=== PATIENT | male | born 1965 | race Caucasian/White ===

== ENCOUNTER 2020-04-22 13:34 | Outpatient (REF) | payer MEDICARE, MEDICAID, SELFPAY | END 2020-04-22 13:35 | disposition home or self-care (01) | LOC: HO.LAB 13:34 | PROVIDERS: Visit Provider Internal Medicine | DX: Z20.828 Contact with and (suspected) exposure to other viral communicable diseases (principal) | CPT/HCPCS: U0003 ==

== ENCOUNTER 2020-05-27 12:30 | Outpatient (REF) | payer MEDICARE, MEDICAID, SELFPAY ==
--- NOTE | 2020-05-27 16:36 | MHC.AU.P13 ---
Adult Audiological Evaluation Date of Visit: 05/27/20 Reason for Appointment: Annual audiological re-evaluation required for his residential living program. He denies any changes to his hearing or medical history since his last visit. Does patient feel they have a hearing loss?: No Has hearing been tested previously?: Yes Previous Hearing Test Results: [facility] [place], 02/05/2019- Normal hearing 250-3000 Hz, sloping to a mild to moderate sensorineural hearing loss from 5390-5815 Hz bilaterally. Ear History: History of Ear Wax Buildup: Both Ears Medical History: Medical History: Developmental Disorder/Delay, Heart Problems Medical History (Other): Stent placed in heart Otoscopy: Right Ear: Non-occluding cerumen Left Ear: Non-occluding cerumen Tympanometry: Right Ear: Normal Middle Ear System (Type A) Left Ear: Normal Middle Ear System (Type A) Hearing Evaluation: Transducer(s) Used: Insert Earphones, Bone Conduction Method: Conventional Audiometry Stimuli Used: Pure Tones Right Ear: Description of Hearing: Normal hearing from 250-3000 Hz, sloping to a mild sensorineural hearing loss from 9376-8580 Hz. Left Ear: Description of Hearing: Normal hearing from 250-3000 Hz, sloping to a mild to moderate sensorineural hearing loss from 3445-6609 Hz. Speech Recognition Threshold (SRT): Method Used: Monitored Live Voice Stimuli Used: Spondee Words Right Ear: 15 dBHL Left Ear: 15 dBHL Word Discrimination: Method: Recorded Lists Word Lists Used: NU-6 Right Ear: 100% at 55 dBHL Left Ear: 96% at 55 dBHL Comparison: Compared to the most recent evaluation: Hearing is stable. Recommendations: Recommendations: Audiological re-evaluation in one year. Amplification is not warranted at this time. Diagnosis: Primary Diagnosis: H90.3 Bilateral Sensorineural Hearing Loss Services Performed: Services Performed: Comprehensive Audiological Evaluation (CPT 55723) Tympanometry (CPT 16413) Signature: Provider: Erika Foster, CCC-A
== END 2020-05-27 12:31 | disposition home or self-care (01) ==
LOC: HO.SH 12:30
PROVIDERS: PCP Internal Medicine; Referring Provider Internal Medicine; Visit Provider Internal Medicine
DX: H90.3 Sensorineural hearing loss, bilateral (principal)
CPT/HCPCS: 92557; 92567

== ENCOUNTER → 2020-05-31 10:07 | Outpatient (BNVA) | payer MEDICARE, MEDICAID, SELFPAY | PROVIDERS: PCP Internal Medicine; Referring Provider Internal Medicine; Visit Provider Internal Medicine Cardiovascular Disease | DX: I25.10 Atherosclerotic heart disease of native coronary artery without angina pectoris (principal) | CPT/HCPCS: 93005; 99212 ==

== ENCOUNTER 2020-06-02 10:21 | Outpatient (REF) | payer MEDICARE, MEDICAID, SELFPAY ==
[2020-06-02 11:20] LABS: Cholesterol 113 mg/dL; HDL Cholesterol 29 mg/dL; LDL Cholesterol Calculated 63 mg/dl; Triglycerides 109 mg/dL
== END 2020-06-02 10:22 | disposition home or self-care (01) ==
LOC: HO.LAB 10:21
PROVIDERS: PCP Internal Medicine; Visit Provider Internal Medicine Cardiovascular Disease
DX: I25.10 Atherosclerotic heart disease of native coronary artery without angina pectoris (principal)
CPT/HCPCS: 80061

== ENCOUNTER → 2021-05-23 09:49 | Outpatient (BNVA) | payer MEDICARE, MEDICAID, SELFPAY | PROVIDERS: PCP Internal Medicine; Referring Provider Internal Medicine; Visit Provider Internal Medicine Cardiovascular Disease | DX: R07.89 Other chest pain (principal); I25.10 Atherosclerotic heart disease of native coronary artery without angina pectoris; R00.1 Bradycardia, unspecified; I44.0 Atrioventricular block, first degree; E78.5 Hyperlipidemia, unspecified; E66.9 Obesity, unspecified; Z68.33 Body mass index [BMI] 33.0-33.9, adult; Z98.890 Other specified postprocedural states; Z95.5 Presence of coronary angioplasty implant and graft; Z82.49 Family history of ischemic heart disease and other diseases of the circulatory system; Z79.82 Long term (current) use of aspirin; Z79.899 Other long term (current) drug therapy | CPT/HCPCS: 93005; 99212 ==

== ENCOUNTER → 2021-05-25 08:13 | Outpatient (REF) | payer MEDICARE, MEDICAID, SELFPAY ==
--- NOTE | ~2021-05-25 | NM_ITS ---
Lexiscan Myocardial perfusion study Indication: Chest pain, assess for coronary disease and ischemia Technique: The patient was brought in for a Lexiscan perfusion study on 05/25/2021 and was injected 0.4 mg of Lexiscan intravenously. Within a minute of this injection 35 mCi of sestamibi was given intravenously. Images were obtained using the SPECT gamma camera interlaced with the gating device. Images were obtained in supine position. Resting perfusion study was performed on 05/26/2021. Patient was administered 35 mCi of sestamibi intravenously at rest. Images were then obtained in supine position. Total DLP 127mGy-cm. Images were processed with the software and compared side to side in short axis, horizontal long axis and vertical long axis views. Findings: Raw acquisition was reviewed. The stress perfusion study showed mildly diminished tracer uptake along the inferior wall, inferolateral wall. With CT attenuation correction, there is some improvement suggestive of diaphragmatic attenuation artifact but it does not normalize completely. The gated study shows normal LV systolic function with calculated LVEF of 63%. LV cavity is normal in size. The gated study shows normal wall thickening and contraction of segments. Resting study shows mildly diminished tracer uptake in the basal inferolateral wall. With CT attenuation correction, there is improvement which may indicate diaphragmatic attenuation artifact. Gating at rest reveals normal wall motion with ejection fraction at 56%. The findings are consistent with mild reversible inferior defect; fixed basal inferolateral defect. NM/NM cardiolite stress test Impression: 1. Myocardial perfusion imaging study shows mild reversible defect in the inferior wall with partial improvement during attenuation correction, suggestive of mild ischemia in the right coronary artery territory. Mild fixed basal inferolateral defect improving with diaphragmatic attenuation correction which could be artifactual, but cannot exclude a small nontransmural infarct in circumflex territory. 2. Gated LVEF is 63% during stress and 56% during rest. 3. Transient ischemic dilatation not present. EKG component of the test reported separately.
--- NOTE | 2021-05-25 08:29 | CA_ITS ---
Acquisition Time: 2021-05-25 10:24:58 Total Exercise Time: 00:02:00 Test Indications: I25.10 - Atherosclerotic heart Medications: Protocol: LEXISCAN Max HR: 096 BPM 58% of Pred: 163 BPM Max BP: 108/064 mmHG Max Work Load: 1.0 METS Exercise stress test with exercise 1 min 16 sec of Tristen protocol, with moderate shortness of breath and request to stop exercise, no chest discomfort, without arrythmia, with normotensive response to exercise, with nondiagnostic EKG for ischemia. Tracings reviewed with Dr Palacio and will change test to pharmacological nuclear stress test. SBP 82 prior to start of test and he was given 250cc normal saline and 6 oz PO water with normalization of BP. Pharm test with Lexiscan injection, while sitting and kicking his legs, with report of fatigue, without anginal symptoms, without arrythmia, with normotensive response to injection, with nondiagnostic EKG for ischemia. Nuclear images pending. Test reviewed with Dr Palacio Referred By: Morales Palacio Overread By: SHIV DUNLAP
[2021-05-25 09:14] LABS: Cholesterol 128 mg/dL; HDL Cholesterol 33 mg/dL; LDL Cholesterol Calculated 73 mg/dl; Triglycerides 110 mg/dL
== END ==
LOC: HO.CARD 08:13
PROVIDERS: PCP Internal Medicine; Visit Provider Internal Medicine Cardiovascular Disease
DX: R07.89 Other chest pain (principal); I25.10 Atherosclerotic heart disease of native coronary artery without angina pectoris
CPT/HCPCS: 36415; 78452; 80061; 93017; A9500; J0280; J2785

== ENCOUNTER 2021-05-29 10:56 | Outpatient (REF) | payer MEDICARE, MEDICAID, SELFPAY ==
--- NOTE | 2021-05-30 10:34 | MHC.AU.ANO ---
Adult Audiological Evaluation Date of Visit: 05/29/21 Senior Data Quality Analyst Used: Not Applicable Reason for Appointment: Audiologic re-evaluation as required by [facility]. Ez[facility]iel reports he does not feel his hearing has changed and his accompanying staff member, Mike, reports Ezequiel appears to be hearing well. Has hearing been tested previously?: Yes Previous Hearing Test Results: 05/27/2020 [facility] Normal hearing levels 250-3000 Hz, sloping to a mild/moderate high frequency sensorineural hearing loss, both ears. Ear History: Unremarkable Medical History: Medical History: Developmental Disorder/Delay, Heart Problems, Seizure Disorder, Stent placed in heart, high cholesterol, mood disorder Medication List: Rispridone, Thioridasine, Prozac, Benztropine, Atorvastatin, Mutivitamin, Aspirin, Prilosec, Lamictal, Keppra, Toprol XL Otoscopy: Right Ear: Partially occluded with cerumen Left Ear: Partially occluded with cerumen Tympanometry: Tympanometry performed due to: To determine if cerumen blockage is fully occluding canal(s) Right Ear: Normal Middle Ear System (Type A) Left Ear: Normal Middle Ear System (Type A) Otoacoustic Emissions: Not performed at today's visit. Hearing Evaluation: Transducer(s) Used: Insert Earphones Bone Conduction Method: Conventional Audiometry Stimuli Used: Pure Tones Right Ear: Description of Hearing: Normal hearing thresholds 250-3000 Hz, sloping to a mild/moderate sensorineural hearing loss 6682-1990 Hz. Left Ear: Description of Hearing: Normal hearing thresholds 250-3000 Hz, sloping to a mild/moderate sensorineural hearing loss 8864-3298 Hz. Speech Recognition Threshold (SRT): Method Used: Monitored Live Voice Stimuli Used: Spondee Words Right Ear: 15 dB HL Left Ear: 15 dB HL Word Discrimination: Method: Recorded Lists Word Lists Used: NU-6 Right Ear: 92% at 55 dB HL Left Ear: 92% at 55 dB HL Comparison: Compared to the most recent evaluation: Hearing is stable. Recommendations: Audiological re-evaluation in one year. Will send a reminder card. Amplification is not warranted at this time. Diagnosis: Primary Diagnosis: H90.3 Bilateral Sensorineural Hearing Loss Services Performed: Comprehensive Audiological Evaluation (CPT 85596) Tympanometry (CPT 10950) Signature: Provider: Erika Wilhelm, [facility]
== END 2021-05-29 10:57 | disposition home or self-care (01) ==
LOC: HO.SH 10:56
PROVIDERS: Visit Provider Internal Medicine
DX: H90.3 Sensorineural hearing loss, bilateral (principal)
CPT/HCPCS: 92557; 92567

== ENCOUNTER → 2021-06-20 13:24 | Outpatient (BNVA) | payer MEDICARE, MEDICAID, SELFPAY | PROVIDERS: PCP Internal Medicine; Referring Provider Internal Medicine; Visit Provider Nurse Practitioner Family | DX: R07.89 Other chest pain (principal); R94.39 Abnormal result of other cardiovascular function study; I25.10 Atherosclerotic heart disease of native coronary artery without angina pectoris; E78.5 Hyperlipidemia, unspecified; E66.9 Obesity, unspecified; Z95.5 Presence of coronary angioplasty implant and graft; Z68.34 Body mass index [BMI] 34.0-34.9, adult | CPT/HCPCS: 99212 ==

== ENCOUNTER 2021-09-19 10:06 | Emergency (ER) | payer MEDICARE, MEDICAID, SELFPAY ==
--- NOTE | 2021-09-19 | ECG_ITS ---
Test Reason : BRADYCARDIA Blood Pressure : / mmHG Vent. Rate : 040 BPM Atrial Rate : 000 BPM P-R Int : 000 ms QRS Dur : 096 ms QT Int : 470 ms P-R-T Axes : 000 007 038 degrees QTc Int : 383 ms Atrial fibrillation with slow ventricular response Possible Inferior infarct , age undetermined Abnormal ECG When compared with ECG of 08-JAN-2014 07:12, Vent. rate has decreased BY 23 BPM Referred By: Latasha Villanueva Electronically Signed By:MARU STANFORD
--- NOTE | ~2021-09-19 | XR_ITS ---
EXAMINATION: XR CHEST CLINICAL INFORMATION: SOB COMPARISON: None TECHNIQUE: Frontal view of the chest was obtained. FINDINGS: The lungs are hypoexpanded but clear of acute process. The heart size is borderline enlarged with normal pulmonary vascularity. No gross bony abnormality seen. XR/XR chest 1V IMPRESSION: Borderline enlarged heart. Lungs are clear.
[2021-09-19 10:56] VITALS: BP 80/49; PULSE 38; RESP 12; TEMP 36.8; O2SAT 90; BMI 32.8
[2021-09-19 11:07] LABS: Glucose, Whole Blood 94 mg/dL (60-115)
[2021-09-19] MEDS: 0.9 % Sodium Chloride 1,000 ML 999 ML IVCONT (11:13)
[2021-09-19 11:18] LABS: MANUAL DIFF FLAG NO
[2021-09-19 11:20] LABS: Basophils Percent Auto 0.4 % (0-2); Eosinophils Absolute Auto 0.1 X10*3/uL (0.0-0.4); Eosinophils Percent Auto 2.1 % (0-4); Hematocrit 46.1 % (42.0-52.0); Hemoglobin 15.4 g/dl (14.0-18.0); Lymphocytes Percent Auto 41.3 % (20-40); Mean Corpuscular HGB Conc 33.4 g/dl (31.0-36.0); Mean Corpuscular Hemoglobin 29.2 pg (27.0-33.0); Mean Corpuscular Volume 87.3 fL (80.0-98.0); Mean Platelet Volume 10.1 fL (9.4-12.4); Monocytes Absolute Auto 0.6 X10*3/uL (0.1-1.2); Monocytes Percent Auto 12.6 % (2-11); Neutrophils Absolute Auto 2.1 x10*3/uL (2.0-8.3); Neutrophils Percent Auto 43.6 % (45-73); Platelet Count 169 X10*3/uL (160-400); Red Blood Count 5.28 X10*6/uL (4.60-5.80); Red Cell Distribution Width 13.5 % (11.0-16.0); White Blood Count 4.8 X10*3/uL (4.8-10.8)
[2021-09-19] MEDS: ondansetron HCL 4 MG/2 ML VIAL IVPUSH (11:21)
--- NOTE | 2021-09-19 11:26 | ED.GENADULT ---
HPI - General Adult General Chief complaint: Weakness Stated complaint: BP low/weakness Time Seen by Provider: 09/19/21 11:04 Source: patient and other ([facility] staff) Mode of arrival: ambulatory Limitations: other History of Present Illness HPI narrative: Patient is coming from a senior living accompanied by staff. Patient is usually very talkative, they noted that this morning patient is more quiet than usual, somnolent, and at times seems to be hard to wake up. When patient arrived to the emergency room, patient's heart rate was 38, blood pressure 80/40, oxygen saturation 90% on room air. Shortly after when we transferred the patient from the wheelchair to the bed and do, heart rate improved to the mid 50s, blood pressure 100 systolic. Patient awake to patient states he has no chest pain, only mild shortness of breath and nausea. Patient is given his medications by the senior living staff. Once his medications is metoprolol. Related Data Home Medications Medication Instructions Recorded Confirmed aspirin 81 mg tablet,delayed 81 mg PO DAILY 05/31/20 06/20/21 release atorvastatin 80 mg tablet 80 mg PO BEDTIME 05/31/20 06/20/21 benztropine 0.5 mg tablet 0.5 mg PO BID 05/31/20 06/20/21 ciclopirox 0.77 % topical cream appl TOPICAL 05/31/20 06/20/21 fluoxetine 10 mg capsule 10 mg PO QAM 05/31/20 06/20/21 multivitamin 1 tab PO QAM 05/31/20 06/20/21 omeprazole 20 mg capsule,delayed 20 mg PO DAILY 05/31/20 06/20/21 release lamotrigine 100 mg tablet 200 mg PO BID tab 05/23/21 06/20/21 levetiracetam 500 mg tablet 1,000 mg PO ONCE tab 05/23/21 06/20/21 risperidone 2 mg tablet 2 mg PO BID tab 05/23/21 06/20/21 thioridazine 50 mg tablet 50 mg PO ONCE tab 05/23/21 06/20/21 Previous Rx's Medication Instructions Recorded metoprolol succinate 25 mg 25 mg PO DAILY #90 tab 10/06/20 tablet,extended release 24 hr isosorbide mononitrate 30 mg 30 mg PO QAM #90 tab 05/29/21 tablet,extended release 24 hr metoprolol succinate 25 mg capsule 12.5 mg PO DAILY #14 ea 09/19/21 sprinkle, ext. release 24 hr Allergies Allergy/AdvReac Type Severity Reaction Status Date / Time No Known Allergies Allergy Verified 06/20/21 13:35 [No Known Allergies*] Review of Systems Review of Systems: Constitutional : No Weight loss, No Fever, No Chills, No Night Sweats, No Fatigue, No Malaise ENT/Mouth : No Hearing loss, No Ear Pain, No Nasal Congestion, No Sinus Pain, No Hoarseness, No sore throat, No Rhinorrhea, No Swallowing Difficulty Eyes: No Eye Pain, No Swelling, No Redness, No Foreign Body, No Discharge, No Vision Changes Cardiovascular : No Chest Pain, no orthopnea, no palpitations Respiratory : No Cough, No Sputum, No Wheezing, No Smoke Exposure complaining of mild shortness of breath Gastrointestinal : Complaining of of Nausea, No Vomiting, No Diarrhea, No Constipation, No abdominal Pain, No Hematochezia, No Melena Genitourinary : no irregular bleeding, No Dysuria, No Urinary Frequency, No Hematuria, No Urinary Incontinence, No Urgency, No Flank Pain, No Urinary Flow Changes, No Hesitancy Musculoskeletal : No joint pain, No Myalgias, No Joint Swelling Skin : No Skin Lesions, No rash Neuro : No Weakness, No Numbness, No Paresthesias, No Loss of Consciousness, No Dizziness, No Headache Psych : No Anxiety/Panic, No Depression, No SI/HI/AH/VH, No Social Issues, Heme/Lymph: No Bruising, No Bleeding,No Lymphadenopathy Endocrine : No Polyuria, No Polydipsia, No Temperature Intolerance [facility] Past Medical History Medical History CAD (coronary artery disease) Hyperlipidemia Obesity Surgical History Hx of cardiac cath Stented coronary artery Family History Family History Father CVD (cardiovascular disease) Mother CVD (cardiovascular disease) Social History Social History Patient Tobacco Use Status: Never used Tobacco Use of substances other than those prescribed or required for medical reasons: No Advance Directives: No Advance Directives Information Provided: Yes Physical Exam ED Vital Signs: Vital Signs - 24 hr 09/19/21 10:56 09/19/21 11:42 09/19/21 12:36 Temperature 98.3 F Pulse Rate 38 L 55 61 Respiratory Rate 12 14 14 Blood Pressure 80/49 L 109/65 101/54 L Pulse Oximetry 90 L 95 96 09/19/21 14:31 Temperature Pulse Rate 70 Respiratory Rate 15 Blood Pressure 115/70 Pulse Oximetry 96 BMI result Body Mass Index 32.8 Const Other: Appearance: Alert. Oriented X3. No acute distress. Patient is now more awake than when he initially came in Eyes: Pupils equal, round and reactive to light. ENT: Pharynx normal. Neck: Normal inspection. Neck supple. No lymph nodes noted. No crepitus CVS: Bradycardic, heart rate between 30 and 50, normal. Normal S1 and S2 Respiratory: No respiratory distress. Breath sounds normal. No Wheezing. No rales Abdomen: Soft and nontender. No rigidity. No distention. Skin: Skin warm and dry. Normal skin color. Normal skin turgor. Extremities: No lower extremity edema. No Lacerations. No Rash Neuro: Oriented X 3. No motor deficit. No sensory deficit. Moving all extremities. No slurred speech. CN 2 through 12 grossly intact Psych: calm, cooperative, normal affect Course Course Course Narrative: When patient 1st arrived in triage, blood pressure and heart rate were low, I consider given atropine, but when we check vitals on the patient was in the room, patient's blood pressure had actually improved and patient was feeling better. Atropine was not given. We were given a list of patient's medications, patient was given 1 dose or 1 mg glucagon in case patient accidentally overdosed with his Toprol. Also pt received 1L IV fluids. Patient is stable, blood pressure between 100 and 110 systolic, heart rate 40-60, no chest pain. EKG seems to show atrial flutter versus atrial fibrillation. According to the senior living staff, patient has no history of either. I discussed the EKG with Dr. Dey, agrees that this may be AFib versus a flutter with slow rate, no heart block. Patient was given glucagon, 2 hours later, patient's heart rate ranged between 60 and 75, blood pressure 115/70, patient asymptomatic. I discussed the patient with Dr. Dey, patient's Toprol will be decreased to 12.5. At this time, anticoagulation is not recommended. Cardiology will follow up with the patient. Patient's urine toxicology was positive for fentanyl. Patient is taking several psychiatric medications that may cause a false positive urine toxicology test. Plan was discussed with senior living staff Medical Decision Making Lab Data Result diagrams: 09/19/21 11:12 09/19/21 11:12 Labs: Lab Results 09/19/21 09/19/21 09/19/21 Range/Units 10:52 11:12 11:12 WBC 4.8 (4.8-10.8) X10*3/uL RBC 5.28 (4.60-5.80) X10*6/uL Hgb 15.4 (14.0-18.0) g/dl Hct 46.1 (42.0-52.0) % MCV 87.3 (80.0-98.0) fL MCH 29.2 (27.0-33.0) pg MCHC 33.4 (31.0-36.0) g/dl RDW 13.5 (11.0-16.0) % Plt Count 169 (160-400) X10*3/uL MPV 10.1 (9.4-12.4) fL Immature Gran % (Auto) 0.0 (0.0-0.4) % Neut % (Auto) 43.6 L (45-73) % Lymph % (Auto) 41.3 H (20-40) % Sheridan % (Auto) 12.6 H (2-11) % Eos % (Auto) 2.1 (0-4) % Baso % (Auto) 0.4 (0-2) % Lymph # (Auto) 2.0 (1.2-4.9) X10*3/uL [place] # (Auto) 0.6 (0.1-1.2) X10*3/uL Eos # (Auto) 0.1 (0.0-0.4) X10*3/uL Baso # (Auto) 0.0 (0.0-0.2) X10*3/uL Abs Immat Gran (auto) 0.00 (0.00-0.03) X10*3/uL Absolute Neuts (auto) 2.1 (2.0-8.3) x10*3/uL Absolute Nucleated RBC 0.000 (0.0-0.012) X10*3/uL Nucleated RBC % (auto) 0.0 (0.0-0.2) /100WBC PT (9.9-13.0) SEC INR (0.9-1.1) Sodium 132 L (135-145) mmol/L Potassium 4.0 (3.3-5.1) mmol/L Chloride 95 L (96-108) mmol/L Carbon Dioxide 29 (22-29) mmol/L Anion Gap 12 (12-20) BUN 12 (9-16) mg/dL Creatinine 0.99 (0.5-1.4) mg/dL Estim Creat Clear Calc 96.4 Estimated GFR > 60 POC Glucose 94 (60-115) mg/dL Random Glucose 103 (60-115) mg/dL Lactic Acid (0.5-2.0) mmol/L Calcium 9.4 (8.4-10.2) mg/dL Magnesium 2.3 (1.6-2.6) mg/dL Total Bilirubin 1.2 H (0.0-1.0) mg/dL Direct Bilirubin 0.5 (0.0-0.5) mg/dL AST 30 (5-37) U/L ALT 45 H (0-40) U/L Alkaline Phosphatase 56 (39-117) U/L Troponin I High Sens (<3.5-35.0) ng/L B-Natriuretic Peptide (<100) pg/mL Total Protein 6.4 L (6.5-8.0) g/dL Albumin 4.1 (3.5-5.0) g/dL TSH 2.87 (0.32-4.0) uIU/mL Urine Color Urine Appearance Urine pH (5.0-8.0) Ur Specific Maynard (1.005-1.025) Urine Protein (NEG-TRACE) MG/DL Urine Glucose (UA) (NEG) MG/DL Urine Ketones (NEG) MG/DL Urine Blood (NEG) Urine Nitrite (NEG) Ur Leukocyte Esterase (NEG) Urine Opiates Screen (Not Detect) Urine Fentanyl Screen (Not Detect) Ur Barbiturates Screen (Not Detect) Ur Phencyclidine Scrn (Not Detect) Ur Amphetamines Screen (Not Detect) U Benzodiazepines Scrn (Not Detect) Urine Cocaine Screen (Not Detect) U Marijuana (THC) Screen (Not Detect) COVID-19 (PATRICIO) (Negative) COVID-19 Clin Com 09/19/21 09/19/21 09/19/21 Range/Units 11:12 11:27 11:27 WBC (4.8-10.8) X10*3/uL RBC (4.60-5.80) X10*6/uL Hgb (14.0-18.0) g/dl Hct (42.0-52.0) % MCV (80.0-98.0) fL MCH (27.0-33.0) pg MCHC (31.0-36.0) g/dl RDW (11.0-16.0) % Plt Count (160-400) X10*3/uL MPV (9.4-12.4) fL Immature Gran % (Auto) (0.0-0.4) % Neut % (Auto) (45-73) % Lymph % (Auto) (20-40) % [place] % (Auto) (2-11) % Eos % (Auto) (0-4) % Baso % (Auto) (0-2) % Lymph # (Auto) (1.2-4.9) X10*3/uL [place] # (Auto) (0.1-1.2) X10*3/uL Eos # (Auto) (0.0-0.4) X10*3/uL Baso # (Auto) (0.0-0.2) X10*3/uL Abs Immat Gran (auto) (0.00-0.03) X10*3/uL Absolute Neuts (auto) (2.0-8.3) x10*3/uL Absolute Nucleated RBC (0.0-0.012) X10*3/uL Nucleated RBC % (auto) (0.0-0.2) /100WBC PT 13.9 H (9.9-13.0) SEC INR 1.2 H (0.9-1.1) Sodium (135-145) mmol/L Potassium (3.3-5.1) mmol/L Chloride (96-108) mmol/L Carbon Dioxide (22-29) mmol/L Anion Gap (12-20) BUN (9-16) mg/dL Creatinine (0.5-1.4) mg/dL Estim Creat Clear Calc Estimated GFR POC Glucose (60-115) mg/dL Random Glucose (60-115) mg/dL Lactic Acid 1.0 (0.5-2.0) mmol/L Calcium (8.4-10.2) mg/dL Magnesium (1.6-2.6) mg/dL Total Bilirubin (0.0-1.0) mg/dL Direct Bilirubin (0.0-0.5) mg/dL AST (5-37) U/L ALT (0-40) U/L Alkaline Phosphatase (39-117) U/L Troponin I High Sens < 3.5 (<3.5-35.0) ng/L B-Natriuretic Peptide 103 H (<100) pg/mL Total Protein (6.5-8.0) g/dL Albumin (3.5-5.0) g/dL TSH (0.32-4.0) uIU/mL Urine Color Urine Appearance Urine pH (5.0-8.0) Ur Specific Maynard (1.005-1.025) Urine Protein (NEG-TRACE) MG/DL Urine Glucose (UA) (NEG) MG/DL Urine Ketones (NEG) MG/DL Urine Blood (NEG) Urine Nitrite (NEG) Ur Leukocyte Esterase (NEG) Urine Opiates Screen (Not Detect) Urine Fentanyl Screen (Not Detect) Ur Barbiturates Screen (Not Detect) Ur Phencyclidine Scrn (Not Detect) Ur Amphetamines Screen (Not Detect) U Benzodiazepines Scrn (Not Detect) Urine Cocaine Screen (Not Detect) U Marijuana (THC) Screen (Not Detect) COVID-19 (PATRICIO) (Negative) COVID-19 Clin Com 09/19/21 09/19/21 09/19/21 Range/Units 11:27 14:06 14:06 WBC (4.8-10.8) X10*3/uL RBC (4.60-5.80) X10*6/uL Hgb (14.0-18.0) g/dl Hct (42.0-52.0) % MCV (80.0-98.0) fL MCH (27.0-33.0) pg MCHC (31.0-36.0) g/dl RDW (11.0-16.0) % Plt Count (160-400) X10*3/uL MPV (9.4-12.4) fL Immature Gran % (Auto) (0.0-0.4) % Neut % (Auto) (45-73) % Lymph % (Auto) (20-40) % [place] % (Auto) (2-11) % Eos % (Auto) (0-4) % Baso % (Auto) (0-2) % Lymph # (Auto) (1.2-4.9) X10*3/uL [place] # (Auto) (0.1-1.2) X10*3/uL Eos # (Auto) (0.0-0.4) X10*3/uL Baso # (Auto) (0.0-0.2) X10*3/uL Abs Immat Gran (auto) (0.00-0.03) X10*3/uL Absolute Neuts (auto) (2.0-8.3) x10*3/uL Absolute Nucleated RBC (0.0-0.012) X10*3/uL Nucleated RBC % (auto) (0.0-0.2) /100WBC PT (9.9-13.0) SEC INR (0.9-1.1) Sodium (135-145) mmol/L Potassium (3.3-5.1) mmol/L Chloride (96-108) mmol/L Carbon Dioxide (22-29) mmol/L Anion Gap (12-20) BUN (9-16) mg/dL Creatinine (0.5-1.4) mg/dL Estim Creat Clear Calc Estimated GFR POC Glucose (60-115) mg/dL Random Glucose (60-115) mg/dL Lactic Acid (0.5-2.0) mmol/L Calcium (8.4-10.2) mg/dL Magnesium (1.6-2.6) mg/dL Total Bilirubin (0.0-1.0) mg/dL Direct Bilirubin (0.0-0.5) mg/dL AST (5-37) U/L ALT (0-40) U/L Alkaline Phosphatase (39-117) U/L Troponin I High Sens (<3.5-35.0) ng/L B-Natriuretic Peptide (<100) pg/mL Total Protein (6.5-8.0) g/dL Albumin (3.5-5.0) g/dL TSH (0.32-4.0) uIU/mL Urine Color YELLOW Urine Appearance CLEAR Urine pH 6.5 (5.0-8.0) Ur Specific Maynard 1.010 (1.005-1.025) Urine Protein NEG (NEG-TRACE) MG/DL Urine Glucose (UA) NEG (NEG) MG/DL Urine Ketones 5 (NEG) MG/DL Urine Blood NEG (NEG) Urine Nitrite NEG (NEG) Ur Leukocyte Esterase NEG (NEG) Urine Opiates Screen Not Detected (Not Detect) Urine Fentanyl Screen POSITIVE H (Not Detect) Ur Barbiturates Screen Not Detected (Not Detect) Ur Phencyclidine Scrn Not Detected (Not Detect) Ur Amphetamines Screen Not Detected (Not Detect) U Benzodiazepines Scrn Not Detected (Not Detect) Urine Cocaine Screen Not Detected (Not Detect) U Marijuana (THC) Screen Not Detected (Not Detect) COVID-19 (PATRICIO) Negative (Negative) COVID-19 Clin Com See Note 09/19/21 Range/Units 14:34 WBC (4.8-10.8) X10*3/uL RBC (4.60-5.80) X10*6/uL Hgb (14.0-18.0) g/dl Hct (42.0-52.0) % MCV (80.0-98.0) fL MCH (27.0-33.0) pg MCHC (31.0-36.0) g/dl RDW (11.0-16.0) % Plt Count (160-400) X10*3/uL MPV (9.4-12.4) fL Immature Gran % (Auto) (0.0-0.4) % Neut % (Auto) (45-73) % Lymph % (Auto) (20-40) % [place] % (Auto) (2-11) % Eos % (Auto) (0-4) % Baso % (Auto) (0-2) % Lymph # (Auto) (1.2-4.9) X10*3/uL [place] # (Auto) (0.1-1.2) X10*3/uL Eos # (Auto) (0.0-0.4) X10*3/uL Baso # (Auto) (0.0-0.2) X10*3/uL Abs Immat Gran (auto) (0.00-0.03) X10*3/uL Absolute Neuts (auto) (2.0-8.3) x10*3/uL Absolute Nucleated RBC (0.0-0.012) X10*3/uL Nucleated RBC % (auto) (0.0-0.2) /100WBC PT (9.9-13.0) SEC INR (0.9-1.1) Sodium (135-145) mmol/L Potassium (3.3-5.1) mmol/L Chloride (96-108) mmol/L Carbon Dioxide (22-29) mmol/L Anion Gap (12-20) BUN (9-16) mg/dL Creatinine (0.5-1.4) mg/dL Estim Creat Clear Calc Estimated GFR POC Glucose (60-115) mg/dL Random Glucose (60-115) mg/dL Lactic Acid (0.5-2.0) mmol/L Calcium (8.4-10.2) mg/dL Magnesium (1.6-2.6) mg/dL Total Bilirubin (0.0-1.0) mg/dL Direct Bilirubin (0.0-0.5) mg/dL AST (5-37) U/L ALT (0-40) U/L Alkaline Phosphatase (39-117) U/L Troponin I High Sens (<3.5-35.0) ng/L B-Natriuretic Peptide (<100) pg/mL Total Protein (6.5-8.0) g/dL Albumin (3.5-5.0) g/dL TSH (0.32-4.0) uIU/mL Urine Color YELLOW Urine Appearance CLEAR Urine pH 7.0 (5.0-8.0) Ur Specific Maynard 1.010 (1.005-1.025) Urine Protein NEG (NEG-TRACE) MG/DL Urine Glucose (UA) NEG (NEG) MG/DL Urine Ketones NEG (NEG) MG/DL Urine Blood NEG (NEG) Urine Nitrite NEG (NEG) Ur Leukocyte Esterase NEG (NEG) Urine Opiates Screen (Not Detect) Urine Fentanyl Screen (Not Detect) Ur Barbiturates Screen (Not Detect) Ur Phencyclidine Scrn (Not Detect) Ur Amphetamines Screen (Not Detect) U Benzodiazepines Scrn (Not Detect) Urine Cocaine Screen (Not Detect) U Marijuana (THC) Screen (Not Detect) COVID-19 (PATRICIO) (Negative) COVID-19 Clin Com Discharge Plan Discharge Clinical Impression: Bradycardia Patient Disposition: Home, Self-Care Additional Instructions: Your metoprolol dose will be decreased from 25 mg to 12.5 mg daily. Please follow-up with your primary care physician tomorrow. If you have any worsening or new symptoms, please return to the emergency room or call 911 Prescriptions: New metoprolol succinate 25 mg capsule,sprinkle,ER 24hr 12.5 mg PO DAILY Qty: 14 0RF No Action metoprolol succinate 25 mg tablet extended release 24 hr 25 mg PO DAILY Qty: 90 3RF isosorbide mononitrate 30 mg tablet extended release 24 hr 30 mg PO QAM Qty: 90 3RF omeprazole 20 mg capsule,delayed release(DR/EC) 20 mg PO DAILY 0RF atorvastatin 80 mg tablet 80 mg PO BEDTIME 0RF benztropine 0.5 mg tablet 0.5 mg PO BID 0RF ciclopirox 0.77 % cream topical 0RF aspirin 81 mg tablet,delayed release (DR/EC) 81 mg PO DAILY 0RF fluoxetine 10 mg capsule 10 mg PO QAM 0RF multivitamin Tablet 1 tab PO QAM 0RF risperidone 2 mg tablet 2 mg PO BID 0RF thioridazine 50 mg tablet 50 mg PO ONCE 0RF lamotrigine 100 mg tablet 200 mg PO BID 0RF levetiracetam 500 mg tablet 1,000 mg PO ONCE 0RF
[2021-09-19 11:41] LABS: B Type Natriuretic Peptide 103 pg/mL (<100); Troponin-I High Sensitivity < 3.5 ng/L (<3.5-35.0)
[2021-09-19 11:42] VITALS: BP 109/65; PULSE 55; RESP 14; O2SAT 95
[2021-09-19 11:42] LABS: Alanine Aminotransferase 45 U/L (0-40); Albumin Level 4.1 g/dL (3.5-5.0); Alkaline Phosphatase 56 U/L (39-117); Anion Gap 12 (12-20); Aspartate Amino Transferase 30 U/L (5-37); Bilirubin Direct 0.5 mg/dL (0.0-0.5); Bilirubin Total 1.2 mg/dL (0.0-1.0); Blood Urea Nitrogen 12 mg/dL (9-16); Calcium 9.4 mg/dL (8.4-10.2); Carbon Dioxide 29 mmol/L (22-29); Chloride 95 mmol/L (96-108); Creatinine Clr Calc Pharmacy 96.4; Estimated Glomerular Filt Rate > 60; Glucose Random 103 mg/dL (60-115); Magnesium 2.3 mg/dL (1.6-2.6); Sodium 132 mmol/L (135-145); Total Protein 6.4 g/dL (6.5-8.0)
[2021-09-19 11:52] LABS: COVID-19 Test Negative (Negative); IDNOW Serial# 55D5AD1C
[2021-09-19 11:54] LABS: INTERNATIONAL NORM RATIO 1.2 (0.9-1.1); Prothrombin Time 13.9 SEC (9.9-13.0)
[2021-09-19 12:02] LABS: TSH reflex Free T4 2.87 uIU/mL (0.32-4.0)
[2021-09-19 12:36] VITALS: BP 101/54; PULSE 61; RESP 14; O2SAT 96
[2021-09-19 14:25] LABS: Amphetamine Screen Urine Not Detected (Not Detect); Barbiturates, Urine Not Detected (Not Detect); Benzodiazepines Screen Urine Not Detected (Not Detect); Cannabinoid Screen Urine Not Detected (Not Detect); Cocaine Screen Urine Not Detected (Not Detect); Fentanyl, urine POSITIVE (Not Detect); Opiate Screen Urine Not Detected (Not Detect); Phencyclidine Screen Urine Not Detected (Not Detect)
[2021-09-19 14:29] LABS: Appearance Urine CLEAR; Color Urine YELLOW; Glucose Urine UA NEG (NEG); Leukocyte Esterase Urine NEG (NEG); Nitrite Urine NEG (NEG); PH 6.5 (5.0-8.0); Urine Blood NEG (NEG); Urine Ketones 5 MG/DL (NEG); Urine Protein NEG (NEG-TRACE)
[2021-09-19 14:31] VITALS: BP 115/70; PULSE 70; RESP 15; O2SAT 96
[2021-09-19 14:41] LABS: Appearance Urine CLEAR; Color Urine YELLOW; Glucose Urine UA NEG (NEG); Leukocyte Esterase Urine NEG (NEG); Nitrite Urine NEG (NEG); Urine Blood NEG (NEG); Urine Ketones NEG (NEG); Urine Protein NEG (NEG-TRACE)
== END 2021-09-19 15:25 | disposition home or self-care (01) ==
PROVIDERS: Emergency Provider Emergency Medicine; PCP Internal Medicine
DX: R00.1 Bradycardia, unspecified (principal); R06.02 Shortness of breath; Z20.822 Contact with and (suspected) exposure to COVID-19; Z79.899 Other long term (current) drug therapy; Z79.82 Long term (current) use of aspirin
CPT/HCPCS: 71045; 80048; 80076; 80307; 81003; 82947; 83605; 83735; 83880; 84443; 84484; 85025; 85610; 87040; 87635; 93005; 96361; 96374; 96375; 99284; J1610; J2405

== ENCOUNTER 2021-09-20 13:04 | Emergency (ER) | payer MEDICARE, MEDICAID, SELFPAY ==
[2021-09-20 13:18] VITALS: BP 89/51; PULSE 54; RESP 17; TEMP 37; O2SAT 95; BMI 34.0
--- NOTE | 2021-09-20 13:35 | ED_ITS ---
HPI - Weakness General Chief complaint: Weakness Stated complaint: Weakness Time Seen by Provider: 09/20/21 13:21 Source: other (in home caregiver) Mode of arrival: wheelchair Limitations: other (Mentally challenged) History of Present Illness HPI Narrative: records management technician states that the patient is weak and off balance. Vitals 59. 89/46 at [facility] Patient is also not eating. Patient was seen in the ED with pulse of 38 and low BP, he was given a dose of glucagon and the vitals improved. His toprol was decreased to MD Complaint: generalized weakness Onset (ago): hour(s) Duration: constant Location: generalized Severity: mild Relieving factors: none Associated symptoms: denies other symptoms Related Data Home Medications Medication Instructions Recorded Confirmed aspirin 81 mg tablet,delayed 81 mg PO DAILY 05/31/20 06/20/21 release atorvastatin 80 mg tablet 80 mg PO BEDTIME 05/31/20 06/20/21 benztropine 0.5 mg tablet 0.5 mg PO BID 05/31/20 06/20/21 ciclopirox 0.77 % topical cream appl TOPICAL 05/31/20 06/20/21 fluoxetine 10 mg capsule 10 mg PO QAM 05/31/20 06/20/21 multivitamin 1 tab PO QAM 05/31/20 06/20/21 omeprazole 20 mg capsule,delayed 20 mg PO DAILY 05/31/20 06/20/21 release lamotrigine 100 mg tablet 200 mg PO BID tab 05/23/21 06/20/21 levetiracetam 500 mg tablet 1,000 mg PO ONCE tab 05/23/21 06/20/21 risperidone 2 mg tablet 2 mg PO BID tab 05/23/21 06/20/21 thioridazine 50 mg tablet 50 mg PO ONCE tab 05/23/21 06/20/21 Previous Rx's Medication Instructions Recorded metoprolol succinate 25 mg 25 mg PO DAILY #90 tab 10/06/20 tablet,extended release 24 hr isosorbide mononitrate 30 mg 30 mg PO QAM #90 tab 05/29/21 tablet,extended release 24 hr metoprolol succinate 25 mg capsule 12.5 mg PO DAILY #14 ea 09/19/21 sprinkle, ext. release 24 hr Allergies Allergy/AdvReac Type Severity Reaction Status Date / Time No Known Allergies Allergy Verified 06/20/21 13:35 [No Known Allergies*] Review of Systems Review of Systems: Yes Unobtainable due to mental status Neurologic: Denies Sensory deficit (Neuro) [facility] Past Medical History Medical History CAD (coronary artery disease) Hyperlipidemia Obesity Seizure Surgical History Hx of cardiac cath Stented coronary artery Family History Family History Father CVD (cardiovascular disease) Mother CVD (cardiovascular disease) Social History Social History Patient Tobacco Use Status: Never used Tobacco Advance Directives: No Advance Directives Information Provided: No Physical Exam Vital Signs: Vital Signs: Last Vital Signs Temp 98.6 F 09/20/21 13:18 Pulse 64 09/20/21 15:20 Resp 16 09/20/21 15:20 BP 118/74 09/20/21 15:20 Pulse Ox 96 09/20/21 15:20 BMI result Body Mass Index 34.0 Const: Other: male with MR, sleeping but wakes up easily Nutritional Appearance: average body habitus Orientation/consciousness: oriented to person Limitations: behavioral limitations HEENT: Head: Yes normal to inspection Ears: external ears normal General nose exam: Normal external nose present Mouth: Normal oral and palatal mucosa present and oropharynx normal Throat: Yes posterior oropharynx normal Eyes: General: appearance normal, both eyes and all related structures Neck: Other: supple Neck: Yes normal visual inspection Chest: Chest palpation & inspection: normal inspection of the chest Resp: Auscultation: clear to auscultation bilaterally Cardio: Jugular venous distension: no JVD Rate: regular rate Rhythm: regular rhythm Heart sounds: S1 normal heart sound present and S2 normal heart sound present GI: Inspection: Yes normal to inspection Palpation (GI): Soft to palpation, nontender and No hepatosplenomegaly present Auscultation: normal bowel sounds : General: Yes no CVA tenderness Back/Spine/Pelvis: Back: no CVA tenderness Skin: General skin exam: no rashes or lesions noted Neuro: General: oriented to person Cranial nerves: Yes CN's II-XII intact bilaterally Motor exam (neuro): 5/5 motor strength present throughout Sensory Exam: No Sensory deficit (Neuro) Extrem: General: Yes normal to inspection Psych: Appearance: grossly normal Course Reevaluation(s) Reevaluation #1: Blood pressure up, pulse 64, will feed patient then discharge home Time: 15:44 MDM - Weakness Lab Data Result diagrams: 09/20/21 14:05 09/20/21 14:05 Labs: Lab Results 09/20/21 09/20/21 09/20/21 Range/Units 14:05 14:05 14:05 WBC 4.4 L (4.8-10.8) X10*3/uL RBC 4.84 (4.60-5.80) X10*6/uL Hgb 14.0 (14.0-18.0) g/dl Hct 42.4 (42.0-52.0) % MCV 87.6 (80.0-98.0) fL MCH 28.9 (27.0-33.0) pg MCHC 33.0 (31.0-36.0) g/dl RDW 13.7 (11.0-16.0) % Plt Count 155 L (160-400) X10*3/uL MPV 10.1 (9.4-12.4) fL Immature Gran % (Auto) 0.2 (0.0-0.4) % Neut % (Auto) 51.4 (45-73) % Lymph % (Auto) 32.3 (20-40) % [place] % (Auto) 14.1 H (2-11) % Eos % (Auto) 1.8 (0-4) % Baso % (Auto) 0.2 (0-2) % Lymph # (Auto) 1.4 (1.2-4.9) X10*3/uL [place] # (Auto) 0.6 (0.1-1.2) X10*3/uL Eos # (Auto) 0.1 (0.0-0.4) X10*3/uL Baso # (Auto) 0.0 (0.0-0.2) X10*3/uL Abs Immat Gran (auto) 0.01 (0.00-0.03) X10*3/uL Absolute Neuts (auto) 2.3 (2.0-8.3) x10*3/uL Absolute Nucleated RBC 0.000 (0.0-0.012) X10*3/uL Nucleated RBC % (auto) 0.0 (0.0-0.2) /100WBC Sodium 131 L (135-145) mmol/L Potassium 4.6 (3.3-5.1) mmol/L Chloride 95 L (96-108) mmol/L Carbon Dioxide 31 H (22-29) mmol/L Anion Gap 10 L (12-20) BUN 12 (9-16) mg/dL Creatinine 1.08 (0.5-1.4) mg/dL Estim Creat Clear Calc 87.1 Estimated GFR > 60 Random Glucose 95 (60-115) mg/dL Calcium 9.3 (8.4-10.2) mg/dL Troponin I High Sens < 3.5 (<3.5-35.0) ng/L Discharge Plan Discharge Clinical Impression: Medication adverse effect Patient Disposition: Home, Self-Care Additional Instructions: Must stop metoprolol, no more beta blockers. Prescriptions: No Action metoprolol succinate 25 mg tablet extended release 24 hr 25 mg PO DAILY Qty: 90 3RF isosorbide mononitrate 30 mg tablet extended release 24 hr 30 mg PO QAM Qty: 90 3RF metoprolol succinate 25 mg capsule,sprinkle,ER 24hr 12.5 mg PO DAILY Qty: 14 0RF omeprazole 20 mg capsule,delayed release(DR/EC) 20 mg PO DAILY 0RF atorvastatin 80 mg tablet 80 mg PO BEDTIME 0RF benztropine 0.5 mg tablet 0.5 mg PO BID 0RF ciclopirox 0.77 % cream topical 0RF aspirin 81 mg tablet,delayed release (DR/EC) 81 mg PO DAILY 0RF fluoxetine 10 mg capsule 10 mg PO QAM 0RF multivitamin Tablet 1 tab PO QAM 0RF risperidone 2 mg tablet 2 mg PO BID 0RF thioridazine 50 mg tablet 50 mg PO ONCE 0RF lamotrigine 100 mg tablet 200 mg PO BID 0RF levetiracetam 500 mg tablet 1,000 mg PO ONCE 0RF Referrals: Eula Ellison MD [Primary Care Provider] - 3 days
--- NOTE | 2021-09-20 13:45 | ECG_ITS ---
Test Reason : WEAKNESS Blood Pressure : / mmHG Vent. Rate : 041 BPM Atrial Rate : 000 BPM P-R Int : 000 ms QRS Dur : 092 ms QT Int : 424 ms P-R-T Axes : 000 005 018 degrees QTc Int : 349 ms Atrial fibrillation with slow ventricular response Abnormal ECG When compared with ECG of 19-SEP-2021 10:54, No significant changes seen Referred By: Gio Henriquez Electronically Signed By:MARU STANFORD
[2021-09-20] MEDS: 0.9 % Sodium Chloride 1,000 ML 125 ML IVCONT (14:06)
[2021-09-20 14:14] LABS: MANUAL DIFF FLAG NO
[2021-09-20 14:17] LABS: Basophils Percent Auto 0.2 % (0-2); Eosinophils Absolute Auto 0.1 X10*3/uL (0.0-0.4); Eosinophils Percent Auto 1.8 % (0-4); Hematocrit 42.4 % (42.0-52.0); Imm Gran Abs Auto 0.01 X10*3/uL (0.00-0.03); Imm Gran Pct Auto 0.2 % (0.0-0.4); Lymphocytes Absolute Auto 1.4 X10*3/uL (1.2-4.9); Lymphocytes Percent Auto 32.3 % (20-40); Mean Corpuscular Hemoglobin 28.9 pg (27.0-33.0); Mean Corpuscular Volume 87.6 fL (80.0-98.0); Mean Platelet Volume 10.1 fL (9.4-12.4); Monocytes Absolute Auto 0.6 X10*3/uL (0.1-1.2); Monocytes Percent Auto 14.1 % (2-11); Neutrophils Absolute Auto 2.3 x10*3/uL (2.0-8.3); Neutrophils Percent Auto 51.4 % (45-73); Platelet Count 155 X10*3/uL (160-400); Red Blood Count 4.84 X10*6/uL (4.60-5.80); Red Cell Distribution Width 13.7 % (11.0-16.0); White Blood Count 4.4 X10*3/uL (4.8-10.8)
[2021-09-20 14:37] LABS: Anion Gap 10 (12-20); Blood Urea Nitrogen 12 mg/dL (9-16); Calcium 9.3 mg/dL (8.4-10.2); Carbon Dioxide 31 mmol/L (22-29); Chloride 95 mmol/L (96-108); Creatinine Clr Calc Pharmacy 87.1; Estimated Glomerular Filt Rate > 60; Glucose Random 95 mg/dL (60-115); Potassium 4.6 mmol/L (3.3-5.1); Sodium 131 mmol/L (135-145)
[2021-09-20 14:46] LABS: Troponin-I High Sensitivity < 3.5 ng/L (<3.5-35.0)
[2021-09-20 15:20] VITALS: BP 118/74; PULSE 64; RESP 16; O2SAT 96
== END 2021-09-20 17:35 | disposition home or self-care (01) ==
PROVIDERS: Emergency Provider Emergency Medicine; PCP Internal Medicine
DX: R53.1 Weakness (principal); T44.7X5A Adverse effect of beta-adrenoreceptor antagonists, initial encounter; Y92.009 Unspecified place in unspecified non-institutional (private) residence as the place of occurrence of the external cause; E78.5 Hyperlipidemia, unspecified; Z79.82 Long term (current) use of aspirin; Z95.5 Presence of coronary angioplasty implant and graft
CPT/HCPCS: 36415; 80048; 84484; 85025; 93005; 96360; 96361; 99284; 99285

== ENCOUNTER 2021-09-21 10:57 | Observation (INO) | payer MEDICARE, MEDICAID, SELFPAY ==
[2021-09-21 11:02] VITALS: BP 110/70; PULSE 50; O2SAT 97
--- NOTE | 2021-09-21 11:03 | ECG_ITS ---
Test Reason : bradicardia Blood Pressure : / mmHG Vent. Rate : 052 BPM Atrial Rate : 312 BPM P-R Int : 000 ms QRS Dur : 094 ms QT Int : 434 ms P-R-T Axes : 000 -08 017 degrees QTc Int : 403 ms Atrial fibrillation Inferior infarct , age undetermined Abnormal ECG When compared with ECG of 20-SEP-2021 13:48, No significant changes seen Referred By: Latasha Villanueva Electronically Signed By:MARU STANFORD
[2021-09-21 11:08] VITALS: BP 104/57; PULSE 48; RESP 16; TEMP 36.7; O2SAT 95; BMI 30.8
--- NOTE | 2021-09-21 11:09 | ED_ITS ---
HPI - General Adult General Chief complaint: Arrhythmia/Palpitations Stated complaint: HYPOTENSION,BRADYCARDIA Time Seen by Provider: 09/21/21 11:03 Source: EMS Mode of arrival: EMS Limitations: other History of Present Illness HPI narrative: Patient comes via EMS from a halfway. Today is the 3rd day in a row that patient comes to the emergency room for the same issue. Patient has been having episodes of bradycardia and hypotension. Patient has no complaints. Per EMS, patient's lowest blood pressure was 100 systolic, given 0.5 L of normal saline which improved to 120 systolic. Lowest heart rate 40. The halfway staff reports that the patient complains of dizziness. In the emergency room. Skyler t states that he does feel dizzy, unable to explain exactly what feels, patient requesting food. Patient denies chest pain or shortness of breath. On his 1st visit, his metoprolol was reduced to 12.5 mg. Yesterday, his visit, he was instructed to discontinue beta-blockers altogether. Related Data Home Medications Medication Instructions Recorded Confirmed aspirin 81 mg tablet,delayed 81 mg PO DAILY 05/31/20 09/21/21 release atorvastatin 80 mg tablet 80 mg PO BEDTIME 05/31/20 09/21/21 benztropine 0.5 mg tablet 0.5 mg PO BID 05/31/20 09/21/21 fluoxetine 10 mg capsule 10 mg PO DAILY 05/31/20 09/21/21 multivitamin 1 tab PO QAM 05/31/20 09/21/21 omeprazole 20 mg capsule,delayed 20 mg PO DAILY@1600 05/31/20 09/21/21 release lamotrigine 100 mg tablet 200 mg PO BID tab 05/23/21 09/21/21 levetiracetam 500 mg tablet 1,000 mg PO BID tab 05/23/21 09/21/21 risperidone 2 mg tablet 2 mg PO BID tab 05/23/21 09/21/21 thioridazine 50 mg tablet 50 mg PO BEDTIME tab 05/23/21 09/21/21 acetaminophen 325 mg tablet 650 mg PO Q4H PRN 09/21/21 09/21/21 divalproex 500 mg tablet,delayed 1 tab PO DAILY 09/21/21 09/21/21 release isosorbide mononitrate 30 mg 30 mg PO DAILY 09/21/21 09/21/21 tablet,extended release 24 hr Allergies Allergy/AdvReac Type Severity Reaction Status Date / Time No Known Allergies Allergy Verified 06/20/21 13:35 [No Known Allergies*] Review of Systems Review of Systems: Constitutional : No Weight loss, No Fever, No Chills, No Night Sweats, No Fatigue, No Malaise ENT/Mouth : No Hearing loss, No Ear Pain, No Nasal Congestion, No Sinus Pain, No Hoarseness, No sore throat, No Rhinorrhea, No Swallowing Difficulty Eyes: No Eye Pain, No Swelling, No Redness, No Foreign Body, No Discharge, No Vision Changes Cardiovascular : No Chest Pain, No SOB, No Dyspnea on Exertion, No Orthopnea, No Edema, No Palpitations, low blood pressure, bradycardic, dizziness Respiratory : No Cough, No Sputum, No Wheezing, No Smoke Exposure, No Dyspnea Gastrointestinal : No Nausea, No Vomiting, No Diarrhea, No Constipation, No abdominal Pain, No Hematochezia, No Melena Genitourinary : no irregular bleeding, No Dysuria, No Urinary Frequency, No Hematuria, No Urinary Incontinence, No Urgency, No Flank Pain, No Urinary Flow Changes, No Hesitancy Musculoskeletal : No joint pain, No Myalgias, No Joint Swelling Skin : No Skin Lesions, No rash Neuro : No Weakness, No Numbness, No Paresthesias, No Loss of Consciousness, No Dizziness, No Headache Psych : No Anxiety/Panic, No Depression, No SI/HI/AH/VH, No Social Issues, Heme/Lymph: No Bruising, No Bleeding,No Lymphadenopathy Endocrine : No Polyuria, No Polydipsia, No Temperature Intolerance [facility] Past Medical History Medical History CAD (coronary artery disease) Hyperlipidemia Obesity Seizure Surgical History Hx of cardiac cath Stented coronary artery Family History Family History Father CVD (cardiovascular disease) Mother CVD (cardiovascular disease) Social History Social History Patient Tobacco Use Status: Never used Tobacco Advance Directives: No Advance Directives Information Provided: No Physical Exam ED Vital Signs: Vital Signs - 24 hr 09/21/21 11:08 09/21/21 12:12 Temperature 98.0 F Pulse Rate 48 L 59 Respiratory Rate 16 18 Blood Pressure 104/57 L 109/58 L Pulse Oximetry 95 96 BMI result Body Mass Index 30.8 Const Other: Appearance: Alert. Oriented X3. No acute distress. Eyes: Pupils equal, round and reactive to light. ENT: Pharynx normal. Neck: Normal inspection. Neck supple. No lymph nodes noted. No crepitus CVS: Bradycardic , irregularly irregular. Pulses normal. Normal S1 and S2 Respiratory: No respiratory distress. Breath sounds normal. No Wheezing. No rales Abdomen: Soft and nontender. No rigidity. No distention. Skin: Skin warm and dry. Normal skin color. Normal skin turgor. Extremities: No lower extremity edema. No Lacerations. No Rash Neuro: Oriented X 3. No motor deficit. No sensory deficit. Moving all extremities. No slurred speech. CN 2 through 12 grossly intact Psych: calm, cooperative, normal affect Course Course Course Narrative: I discussed the patient with Dr. Dey. Patient will be admitted for observation/telemetry, then it will be determined if patient needs a pacemaker. This time, patient's blood pressure 109/58, heart rate 59, patient is not dizzy. Patient being admitted for observation/telemetry. Medical Decision Making Lab Data Result diagrams: 09/21/21 11:31 09/21/21 11:31 Labs: Lab Results 09/21/21 09/21/21 09/21/21 Range/Units 11:31 11:31 11:31 WBC 4.2 L (4.8-10.8) X10*3/uL RBC 4.83 (4.60-5.80) X10*6/uL Hgb 14.2 (14.0-18.0) g/dl Hct 42.5 (42.0-52.0) % MCV 88.0 (80.0-98.0) fL MCH 29.4 (27.0-33.0) pg MCHC 33.4 (31.0-36.0) g/dl RDW 13.7 (11.0-16.0) % Plt Count 151 L (160-400) X10*3/uL MPV 10.0 (9.4-12.4) fL Immature Gran % (Auto) 0.5 H (0.0-0.4) % Neut % (Auto) 47.5 (45-73) % Lymph % (Auto) 35.6 (20-40) % Person % (Auto) 13.8 H (2-11) % Eos % (Auto) 2.4 (0-4) % Baso % (Auto) 0.2 (0-2) % Lymph # (Auto) 1.5 (1.2-4.9) X10*3/uL Person # (Auto) 0.6 (0.1-1.2) X10*3/uL Eos # (Auto) 0.1 (0.0-0.4) X10*3/uL Baso # (Auto) 0.0 (0.0-0.2) X10*3/uL Abs Immat Gran (auto) 0.02 (0.00-0.03) X10*3/uL Absolute Neuts (auto) 2.0 (2.0-8.3) x10*3/uL Absolute Nucleated RBC 0.000 (0.0-0.012) X10*3/uL Nucleated RBC % (auto) 0.0 (0.0-0.2) /100WBC PT 14.0 H (9.9-13.0) SEC INR 1.2 H (0.9-1.1) Sodium 132 L (135-145) mmol/L Potassium 4.2 (3.3-5.1) mmol/L Chloride 95 L (96-108) mmol/L Carbon Dioxide 29 (22-29) mmol/L Anion Gap 12 (12-20) BUN 11 (9-16) mg/dL Creatinine 1.00 (0.5-1.4) mg/dL Estim Creat Clear Calc 101.1 Estimated GFR > 60 Random Glucose 95 (60-115) mg/dL Calcium 9.0 (8.4-10.2) mg/dL Magnesium 2.0 (1.6-2.6) mg/dL Total Bilirubin 1.0 (0.0-1.0) mg/dL Direct Bilirubin 0.4 (0.0-0.5) mg/dL AST 23 (5-37) U/L ALT 35 (0-40) U/L Alkaline Phosphatase 51 (39-117) U/L Troponin I High Sens (<3.5-35.0) ng/L B-Natriuretic Peptide (<100) pg/mL Total Protein 5.9 L (6.5-8.0) g/dL Albumin 3.9 (3.5-5.0) g/dL TSH (0.32-4.0) uIU/mL COVID-19 (PATRICIO) (Negative) COVID-19 Clin Com 09/21/21 09/21/21 09/21/21 Range/Units 11:31 11:31 11:31 WBC (4.8-10.8) X10*3/uL RBC (4.60-5.80) X10*6/uL Hgb (14.0-18.0) g/dl Hct (42.0-52.0) % MCV (80.0-98.0) fL MCH (27.0-33.0) pg MCHC (31.0-36.0) g/dl RDW (11.0-16.0) % Plt Count (160-400) X10*3/uL MPV (9.4-12.4) fL Immature Gran % (Auto) (0.0-0.4) % Neut % (Auto) (45-73) % Lymph % (Auto) (20-40) % Person % (Auto) (2-11) % Eos % (Auto) (0-4) % Baso % (Auto) (0-2) % Lymph # (Auto) (1.2-4.9) X10*3/uL Person # (Auto) (0.1-1.2) X10*3/uL Eos # (Auto) (0.0-0.4) X10*3/uL Baso # (Auto) (0.0-0.2) X10*3/uL Abs Immat Gran (auto) (0.00-0.03) X10*3/uL Absolute Neuts (auto) (2.0-8.3) x10*3/uL Absolute Nucleated RBC (0.0-0.012) X10*3/uL Nucleated RBC % (auto) (0.0-0.2) /100WBC PT (9.9-13.0) SEC INR (0.9-1.1) Sodium (135-145) mmol/L Potassium (3.3-5.1) mmol/L Chloride (96-108) mmol/L Carbon Dioxide (22-29) mmol/L Anion Gap (12-20) BUN (9-16) mg/dL Creatinine (0.5-1.4) mg/dL Estim Creat Clear Calc Estimated GFR Random Glucose (60-115) mg/dL Calcium (8.4-10.2) mg/dL Magnesium (1.6-2.6) mg/dL Total Bilirubin (0.0-1.0) mg/dL Direct Bilirubin (0.0-0.5) mg/dL AST (5-37) U/L ALT (0-40) U/L Alkaline Phosphatase (39-117) U/L Troponin I High Sens < 3.5 (<3.5-35.0) ng/L B-Natriuretic Peptide 98 (<100) pg/mL Total Protein (6.5-8.0) g/dL Albumin (3.5-5.0) g/dL TSH 1.58 (0.32-4.0) uIU/mL COVID-19 (PATRICIO) Negative (Negative) COVID-19 Clin Com See Note Discharge Plan Discharge Clinical Impression: Bradycardia Patient Disposition: Admitted As Inpatient Prescriptions: No Action divalproex 500 mg tablet,delayed release (DR/EC) 1 tab PO DAILY 0RF acetaminophen 325 mg Tablet 650 mg PO Q4H PRN (Reason: Pain) 0RF isosorbide mononitrate 30 mg tablet extended release 24 hr 30 mg PO DAILY 0RF omeprazole 20 mg capsule,delayed release(DR/EC) 20 mg PO DAILY@1600 0RF atorvastatin 80 mg tablet 80 mg PO BEDTIME 0RF benztropine 0.5 mg tablet 0.5 mg PO BID 0RF aspirin 81 mg tablet,delayed release (DR/EC) 81 mg PO DAILY 0RF fluoxetine 10 mg capsule 10 mg PO DAILY 0RF multivitamin Tablet 1 tab PO QAM 0RF risperidone 2 mg tablet 2 mg PO BID 0RF thioridazine 50 mg tablet 50 mg PO BEDTIME 0RF lamotrigine 100 mg tablet 200 mg PO BID 0RF levetiracetam 500 mg tablet 1,000 mg PO BID 0RF
--- NOTE | 2021-09-21 11:19 | ECG_ITS ---
Test Reason : repeat Blood Pressure : / mmHG Vent. Rate : 053 BPM Atrial Rate : 000 BPM P-R Int : 000 ms QRS Dur : 094 ms QT Int : 444 ms P-R-T Axes : 000 -02 024 degrees QTc Int : 416 ms Atrial fibrillation with slow ventricular response Inferior infarct (cited on or before 21-SEP-2021) Abnormal ECG When compared with ECG of 21-SEP-2021 11:12, No significant changes seen Referred By: Latasha Villanueva Electronically Signed By:MARU STANFORD
[2021-09-21 11:35] LABS: MANUAL DIFF FLAG NO
[2021-09-21] MEDS: 0.9 % Sodium Chloride 1,000 ML 999 ML IVCONT (11:37)
[2021-09-21 11:41] LABS: Basophils Percent Auto 0.2 % (0-2); Eosinophils Absolute Auto 0.1 X10*3/uL (0.0-0.4); Eosinophils Percent Auto 2.4 % (0-4); Hematocrit 42.5 % (42.0-52.0); Hemoglobin 14.2 g/dl (14.0-18.0); Imm Gran Abs Auto 0.02 X10*3/uL (0.00-0.03); Imm Gran Pct Auto 0.5 % (0.0-0.4); Lymphocytes Absolute Auto 1.5 X10*3/uL (1.2-4.9); Lymphocytes Percent Auto 35.6 % (20-40); Mean Corpuscular HGB Conc 33.4 g/dl (31.0-36.0); Mean Corpuscular Hemoglobin 29.4 pg (27.0-33.0); Monocytes Absolute Auto 0.6 X10*3/uL (0.1-1.2); Monocytes Percent Auto 13.8 % (2-11); Neutrophils Percent Auto 47.5 % (45-73); Platelet Count 151 X10*3/uL (160-400); Red Blood Count 4.83 X10*6/uL (4.60-5.80); Red Cell Distribution Width 13.7 % (11.0-16.0); White Blood Count 4.2 X10*3/uL (4.8-10.8)
[2021-09-21 11:42] LABS: INTERNATIONAL NORM RATIO 1.2 (0.9-1.1)
[2021-09-21 11:51] LABS: COVID-19 Test Negative (Negative); IDNOW Serial# 55D5AD1C
[2021-09-21 11:54] LABS: Alanine Aminotransferase 35 U/L (0-40); Albumin Level 3.9 g/dL (3.5-5.0); Alkaline Phosphatase 51 U/L (39-117); Anion Gap 12 (12-20); Aspartate Amino Transferase 23 U/L (5-37); Bilirubin Direct 0.4 mg/dL (0.0-0.5); Blood Urea Nitrogen 11 mg/dL (9-16); Carbon Dioxide 29 mmol/L (22-29); Chloride 95 mmol/L (96-108); Creatinine Clr Calc Pharmacy 101.1; Estimated Glomerular Filt Rate > 60; Glucose Random 95 mg/dL (60-115); Potassium 4.2 mmol/L (3.3-5.1); Sodium 132 mmol/L (135-145); Total Protein 5.9 g/dL (6.5-8.0)
[2021-09-21 12:02] LABS: B Type Natriuretic Peptide 98 pg/mL (<100); Troponin-I High Sensitivity < 3.5 ng/L (<3.5-35.0)
[2021-09-21 12:12] VITALS: BP 109/58; PULSE 59; RESP 18; O2SAT 96
[2021-09-21 12:17] LABS: TSH reflex Free T4 1.58 uIU/mL (0.32-4.0)
--- NOTE | 2021-09-21 12:19 | PHA.MEDREC ---
Pharmacy Consult ? Medication Reconciliation Pharmacy has completed the medication reconciliation.
--- NOTE | 2021-09-21 13:19 | P.HPHOSP_ITS ---
History of Present Illness Date of Service: 09/21/21 Chief Complaint: unsteady, gena 55M from [facility]. was sent in for symptomatic bradycardia and hypotension. patient has been to ED last 2 days for similar symptoms, heart rates in 30s, SBP high 80s. metoprolol has been discontinued, but had another episode on day of presenation, staff states patient is more unsteady and complains of dizzyness. patient himself mention some chest discomfort durging episodes, in ED patient in afib in 50s to 70s. now asypmtomatic. of note, staff states patient was started on depakote about 1 week ptp for spasms. Review of Systems Review of Systems: Constitutional: Denies fever, denies Chills Eyes: denies blurry vision ENT: denies sore throat CVS: chest pain Respiratory: Denies dyspnea GI: no abdominal pain : denies dysuria MSK: denies neck pain Skin: denies rash Neuro: denies specific motor weakness Psych: denies suicidal ideation Endocrine: denies heat/cold intolerance Hematologic: denies easy bleeding Allergy: denies hives PMFSH Medical History CAD (coronary artery disease) Hyperlipidemia Obesity Seizure Family History Father CVD (cardiovascular disease) Mother CVD (cardiovascular disease) Surgical History Hx of cardiac cath Stented coronary artery Social History Patient Tobacco Use Status: Never used Tobacco Advance Directives: No Advance Directives Information Provided: No Meds Allergies Allergy/AdvReac Type Severity Reaction Status Date / Time No Known Allergies Allergy Verified 06/20/21 13:35 [No Known Allergies*] Active Medications: Current Medications Aspirin (Aspirin Enteric Coated 81 Mg Tablet.) 81 mg PO DAILY ANH Atorvastatin Calcium (Atorvastatin Calcium 80 Mg Tablet) 80 mg PO BEDTIME ANH Benztropine Mesylate (Benztropine Mesylate 0.5 Mg Tablet) 0.5 mg PO BID ANH Enoxaparin Sodium (Enoxaparin Sodium 40 Mg/0.4 Ml Syringe) 40 mg SUBCUT Q24H ANH Fluoxetine HCl (Fluoxetine Hcl 10 Mg Capsule) 10 mg PO DAILY [facility] Isosorbide Mononitrate (Isosorbide Mononitrate 30 Mg Tab.Er.24h) 30 mg PO DAILY [facility]; Protocol Lamotrigine (Lamotrigine 100 Mg Tablet) 200 mg PO BID [facility] Levetiracetam (Levetiracetam 1,000 Mg Tablet) 1,000 mg PO BID [facility] Multivitamins/Vitamin C (Multivitamin Tablet) 1 tab PO QAM [facility] Non-Formulary Medication (Thioridazine) 50 mg PO BEDTIME [facility] Omeprazole (Omeprazole 20 Mg Capsule.Dr) 20 mg PO DAILY@1600 [facility] Pharmacy Consult (Consult Rx Perform Med Rec) 1 each MISCELLANE ONCE PRN PRN Reason: Consult order Risperidone (Risperidone 2 Mg Tablet) 2 mg PO BID [facility] Sodium Chloride (0.9 % Sodium Chloride Flush 3 Ml Syringe) 3 ml IVFLUSH QSHIFT [facility] Home Medications Medication Instructions Recorded Confirmed Last Taken Type aspirin 81 mg tablet,delayed 81 mg PO DAILY 05/31/20 09/21/21 09/21/21 History release atorvastatin 80 mg tablet 80 mg PO BEDTIME 05/31/20 09/21/21 09/20/21 History benztropine 0.5 mg tablet 0.5 mg PO BID 05/31/20 09/21/21 09/21/21 History fluoxetine 10 mg capsule 10 mg PO DAILY 05/31/20 09/21/21 09/21/21 History multivitamin 1 tab PO QAM 05/31/20 09/21/21 09/21/21 History omeprazole 20 mg capsule,delayed 20 mg PO DAILY@1600 05/31/20 09/21/21 09/20/21 History release lamotrigine 100 mg tablet 200 mg PO BID tab 05/23/21 09/21/21 09/21/21 History levetiracetam 500 mg tablet 1,000 mg PO BID tab 05/23/21 09/21/21 09/21/21 History risperidone 2 mg tablet 2 mg PO BID tab 05/23/21 09/21/21 09/21/21 History thioridazine 50 mg tablet 50 mg PO BEDTIME tab 05/23/21 09/21/21 09/20/21 History acetaminophen 325 mg tablet 650 mg PO Q4H PRN 09/21/21 09/21/21 Unknown History divalproex 500 mg tablet,delayed 1 tab PO DAILY 09/21/21 09/21/21 09/21/21 History release isosorbide mononitrate 30 mg 30 mg PO DAILY 09/21/21 09/21/21 09/21/21 History tablet,extended release 24 hr Physical Exam Vital Signs and Narrative: Vital Signs: Last Vital Signs Temp 98.0 F 09/21/21 11:08 Pulse 59 09/21/21 12:12 Resp 18 09/21/21 12:12 BP 109/58 L 09/21/21 12:12 Pulse Ox 96 09/21/21 12:12 BMI result Body Mass Index 30.8 General: no acute distress HEENT: atraumatic Neck: normal to visual inspection CVS: S1, S2, irregular Resp: CTA bilateral Chest: non tender GI: soft, non tender, non distended : no CVA tenderness Skin: no rashes Extremities: trace edema Neuro: Oriented X3, grossly intact Psych: cooperative, limitted insight Results Labs CBC and Chem 7: 09/21/21 11:31 09/21/21 11:31 Labs: Laboratory Results - last 24 hr 09/21/21 09/21/21 09/21/21 11:31 11:31 11:31 MCV 88.0 MCH 29.4 MCHC 33.4 RDW 13.7 Plt Count 151 L MPV 10.0 Immature Gran % (Auto) 0.5 H Neut % (Auto) 47.5 Lymph % (Auto) 35.6 [place] % (Auto) 13.8 H Eos % (Auto) 2.4 Baso % (Auto) 0.2 Lymph # (Auto) 1.5 [place] # (Auto) 0.6 Eos # (Auto) 0.1 Baso # (Auto) 0.0 Abs Immat Gran (auto) 0.02 Absolute Neuts (auto) 2.0 Absolute Nucleated RBC 0.000 Nucleated RBC % (auto) 0.0 PT 14.0 H INR 1.2 H Anion Gap 12 Estim Creat Clear Calc 101.1 Estimated GFR > 60 Random Glucose 95 Calcium 9.0 Magnesium 2.0 Total Bilirubin 1.0 Direct Bilirubin 0.4 AST 23 ALT 35 Alkaline Phosphatase 51 Troponin I High Sens B-Natriuretic Peptide Total Protein 5.9 L Albumin 3.9 TSH COVID-19 (PATRICIO) COVID-19 Clin Com 09/21/21 09/21/21 09/21/21 11:31 11:31 11:31 MCV MCH MCHC RDW Plt Count MPV Immature Gran % (Auto) Neut % (Auto) Lymph % (Auto) [place] % (Auto) Eos % (Auto) Baso % (Auto) Lymph # (Auto) [place] # (Auto) Eos # (Auto) Baso # (Auto) Abs Immat Gran (auto) Absolute Neuts (auto) Absolute Nucleated RBC Nucleated RBC % (auto) PT INR Anion Gap Estim Creat Clear Calc Estimated GFR Random Glucose Calcium Magnesium Total Bilirubin Direct Bilirubin AST ALT Alkaline Phosphatase Troponin I High Sens < 3.5 B-Natriuretic Peptide 98 Total Protein Albumin TSH 1.58 COVID-19 (PATRICIO) Negative COVID-19 Clin Com See Note Assessment and Plan (1) Bradycardia: Status: Acute Plan 55M presneted with dizzyness, bradycardia, hypotension dizziness, persistent atrial fibirrlation with slow ventricular response, hypotnesion continue to hold metoprolol mointor on tele npo after midnight in case of ppm cardio eval hold depakote CAD asa, statin epilsepsy lamictal keppra intelectual delay with some behaviour abnormalities risperdal Quality Stroke Does the patient have a stroke diagnosis?: No VTE Prior VTE?: No VTE Risk Level:: Medical - moderate - high VTE Device Contraindication: Treatment Not Indicated VTE Drug Contraindication: N/A - Med Ordered
[2021-09-21] MEDS: Enoxaparin Sodium 40 MG/0.4 ML SYRINGE SUBCUT (13:37)
[2021-09-21 15:16] VITALS: BP 109/53; PULSE 82; RESP 13; TEMP 36.6; O2SAT 96
[2021-09-21] MEDS: Omeprazole 20 MG CAPSULE.DR PO (15:26)
[2021-09-21] MEDS: 0.9 % Sodium Chloride Flush 3 ML SYRINGE IVFLUSH ×2 (15:26→23:03)
--- NOTE | 2021-09-21 18:34 | PC.NURSE ---
eating dinner, nad, skin wpd, staff at bedside, report to fay and moved to overflow unit
[2021-09-21 18:54] VITALS: BP 115/64; PULSE 68; RESP 16; TEMP 36.6; O2SAT 95
[2021-09-21 20:02] VITALS: BP 95/38; PULSE 69; RESP 17; O2SAT 97
[2021-09-21] MEDS: levETIRAcetam 1,000 MG TABLET 1000 MG PO (21:29)
[2021-09-21] MEDS: Atorvastatin Calcium 80 MG TABLET PO (21:29)
[2021-09-21] MEDS: Benztropine Mesylate 0.5 MG TABLET PO (21:29)
[2021-09-21] MEDS: risperiDONE 2 MG TABLET PO (21:29)
[2021-09-21] MEDS: lamoTRIgine 100 MG TABLET 200 MG PO (21:29)
[2021-09-22] VITALS (11 sets, daily range): BP systolic 95–130; BP diastolic 54–77; PULSE 63–101; RESP 16–20; TEMP 36.1–36.7; O2SAT 90–98; BMI 29.6
[2021-09-22 06:52] LABS: Hematocrit 41.4 % (42.0-52.0); Hemoglobin 14.4 g/dl (14.0-18.0); Mean Corpuscular HGB Conc 34.8 g/dl (31.0-36.0); Mean Corpuscular Hemoglobin 31.4 pg (27.0-33.0); Mean Corpuscular Volume 90.2 fL (80.0-98.0); Mean Platelet Volume 10.5 fL (9.4-12.4); Platelet Count 148 X10*3/uL (160-400); Red Blood Count 4.59 X10*6/uL (4.60-5.80); Red Cell Distribution Width 14.6 % (11.0-16.0)
[2021-09-22 07:16] LABS: Anion Gap 11 (12-20); Blood Urea Nitrogen 6 mg/dL (9-16); Calcium 8.8 mg/dL (8.4-10.2); Carbon Dioxide 29 mmol/L (22-29); Chloride 100 mmol/L (96-108); Creatinine Clr Calc Pharmacy 125.7; Estimated Glomerular Filt Rate > 60; Glucose Fasting 92 mg/dL (60-99); Potassium 4.2 mmol/L (3.3-5.1); Sodium 136 mmol/L (135-145)
[2021-09-22] MEDS: 0.9 % Sodium Chloride Flush 3 ML SYRINGE IVFLUSH ×3 (08:09→19:43)
[2021-09-22] MEDS: lamoTRIgine 100 MG TABLET 200 MG PO ×2 (08:09→19:42)
[2021-09-22] MEDS: levETIRAcetam 1,000 MG TABLET 1000 MG PO ×2 (08:10→19:42)
[2021-09-22] MEDS: Aspirin Enteric Coated 81 MG TABLET.DR PO (08:10)
[2021-09-22] MEDS: Multivitamin TABLET 1 TAB PO (08:10)
[2021-09-22] MEDS: Isosorbide Mononitrate 30 MG TAB.ER.24H PO (08:10)
[2021-09-22] MEDS: risperiDONE 2 MG TABLET PO ×2 (08:10→19:42)
[2021-09-22] MEDS: FLUoxetine HCl 10 MG CAPSULE PO (08:10)
[2021-09-22] MEDS: Benztropine Mesylate 0.5 MG TABLET PO ×2 (08:10→19:42)
--- NOTE | 2021-09-22 08:37 | MHC.CM.PN ---
CM met with Patient and his [facility] Staff Member and addressed LEWIS with both (providing Patient with the original and placing a copy on the chart). Returning to the [facility] is the goal and CM has initiated and will follow for dc planning. Patient typically uses a cane and he has received Moderna/Covid vax X3. PCP is Dr. Eula Ellison.
--- NOTE | 2021-09-22 09:52 | P.DS_ITS ---
DS: Providers Provider Date of Service: 09/23/21 Date of admission: 09/21/21 13:15 Primary care physician: Eula Ellison MD Consults: 09/21/21 13:15 Consult to Cardiology Routine Consulting Provider: Tyson Dey Reason for consultation: ?symptomatic afib with SVR DS: Diagnosis Discharge Diagnosis (1) Bradycardia: Status: Acute DS: Summary Hospital Course Hospital Course: from initial hpi: Chief Complaint: unsteady, gena 55M from [facility]. was sent in for symptomatic bradycardia and hypotension. patient has been to ED last 2 days for similar symptoms, heart rates in 30s, SBP high 80s. metoprolol has been discontinued, but had another episode on day of presenation, staff states patient is more unsteady and complains of dizzyness. patient himself mention some chest discomfort durging episodes, in ED patient in afib in 50s to 70s. now asypmtomatic. of note, staff states patient was started on depakote about 1 week ptp for spasms. hospital course: Patient was observed over concern for symptomatic persistent atrial fibrillation with slow ventricular response and hypotension. On telemetry patient had no significant bradycardia, likely this is not the cause of symptoms. He recently was started on Depakote for muscle spasms and symptoms started after that, making Depakote a likely culprit cause, it should be discontinued. Patient also likely has orthostatic hypotension, his Imdur should be held and patient should take orthostatic precautions. For his coronary artery disease continue aspirin statin, for his epilepsy is continued on Lamictal and Keppra, for his in tellectual delay with behavior abnormalities is continued on risperidone. Time Spent with Patient Time attestation: Total time spent providing and/or coordinating discharge services: Discharge coordination time: Greater than 30 minutes Quality: Safe Use of Opioids Does Pt have an Active Cancer Diagnosis on the Problem List?: No Quality: Stroke Does the patient have a stroke diagnosis?: No Physical Exam Vital Signs: Vital Signs: Last Vital Signs Temp 97.4 F 09/22/21 07:24 Pulse 77 09/22/21 07:24 Resp 18 09/22/21 07:24 BP 111/77 09/22/21 07:24 Pulse Ox 95 09/22/21 07:24 BMI result Body Mass Index 29.6 General: AO X 3, no acute distress Resp: CTA bilateral, no accessory muscles used CVS: S1,S2,RRR GI: soft, non tender, non distended Neuro: motor grossly intact, alert Psych: appropriate affect, impaired insight DS: Data Data Completed and Pending Labs on day of discharge: Laboratory Results - last 24 hr 09/21/21 09/21/21 09/21/21 11:31 11:31 11:31 WBC 4.2 L RBC 4.83 Hgb 14.2 Hct 42.5 MCV 88.0 MCH 29.4 MCHC 33.4 RDW 13.7 Plt Count 151 L MPV 10.0 Immature Gran % (Auto) 0.5 H Neut % (Auto) 47.5 Lymph % (Auto) 35.6 [place] % (Auto) 13.8 H Eos % (Auto) 2.4 Baso % (Auto) 0.2 Lymph # (Auto) 1.5 [place] # (Auto) 0.6 Eos # (Auto) 0.1 Baso # (Auto) 0.0 Abs Immat Gran (auto) 0.02 Absolute Neuts (auto) 2.0 Absolute Nucleated RBC 0.000 Nucleated RBC % (auto) 0.0 PT 14.0 H INR 1.2 H Sodium 132 L Potassium 4.2 Chloride 95 L Carbon Dioxide 29 Anion Gap 12 BUN 11 Creatinine 1.00 Estim Creat Clear Calc 101.1 Estimated GFR > 60 Random Glucose 95 Fasting Glucose Calcium 9.0 Magnesium 2.0 Total Bilirubin 1.0 Direct Bilirubin 0.4 AST 23 ALT 35 Alkaline Phosphatase 51 Troponin I High Sens B-Natriuretic Peptide Total Protein 5.9 L Albumin 3.9 TSH COVID-19 (PATRICIO) COVID-19 Clin Com 09/21/21 09/21/21 09/21/21 11:31 11:31 11:31 WBC RBC Hgb Hct MCV MCH MCHC RDW Plt Count MPV Immature Gran % (Auto) Neut % (Auto) Lymph % (Auto) [place] % (Auto) Eos % (Auto) Baso % (Auto) Lymph # (Auto) [place] # (Auto) Eos # (Auto) Baso # (Auto) Abs Immat Gran (auto) Absolute Neuts (auto) Absolute Nucleated RBC Nucleated RBC % (auto) PT INR Sodium Potassium Chloride Carbon Dioxide Anion Gap BUN Creatinine Estim Creat Clear Calc Estimated GFR Random Glucose Fasting Glucose Calcium Magnesium Total Bilirubin Direct Bilirubin AST ALT Alkaline Phosphatase Troponin I High Sens < 3.5 B-Natriuretic Peptide 98 Total Protein Albumin TSH 1.58 COVID-19 (PATRICIO) Negative COVID-19 Clin Com See Note 09/22/21 09/22/21 06:22 06:22 WBC 7.0 RBC 4.59 L Hgb 14.4 Hct 41.4 L MCV 90.2 MCH 31.4 MCHC 34.8 RDW 14.6 Plt Count 148 L MPV 10.5 Immature Gran % (Auto) Neut % (Auto) Lymph % (Auto) [place] % (Auto) Eos % (Auto) Baso % (Auto) Lymph # (Auto) [place] # (Auto) Eos # (Auto) Baso # (Auto) Abs Immat Gran (auto) Absolute Neuts (auto) Absolute Nucleated RBC 0.000 Nucleated RBC % (auto) 0.0 PT INR Sodium 136 Potassium 4.2 Chloride 100 Carbon Dioxide 29 Anion Gap 11 L BUN 6 L Creatinine 0.79 Estim Creat Clear Calc 125.7 Estimated GFR > 60 Random Glucose Fasting Glucose 92 Calcium 8.8 Magnesium Total Bilirubin Direct Bilirubin AST ALT Alkaline Phosphatase Troponin I High Sens B-Natriuretic Peptide Total Protein Albumin TSH COVID-19 (PATRICIO) COVID-19 Clin Com Discharge Plan Discharge Patient Disposition: Home, Self-Care Discharge Diagnosis: bradycardia Referrals: Eula Ellison MD [Primary Care Provider] - 1 Week Discharge Medications: Continued acetaminophen 325 mg Tablet 650 mg PO Q4H PRN (Reason: Pain) 0RF omeprazole 20 mg capsule,delayed release(DR/EC) 20 mg PO DAILY@1600 0RF atorvastatin 80 mg tablet 80 mg PO BEDTIME 0RF benztropine 0.5 mg tablet 0.5 mg PO BID 0RF aspirin 81 mg tablet,delayed release (DR/EC) 81 mg PO DAILY 0RF fluoxetine 10 mg capsule 10 mg PO DAILY 0RF multivitamin Tablet 1 tab PO QAM 0RF risperidone 2 mg tablet 2 mg PO BID 0RF thioridazine 50 mg tablet 50 mg PO BEDTIME 0RF lamotrigine 100 mg tablet 200 mg PO BID 0RF levetiracetam 500 mg tablet 1,000 mg PO BID 0RF Discontinued divalproex 500 mg tablet,delayed release (DR/EC) 1 tab PO DAILY 0RF isosorbide mononitrate 30 mg tablet extended release 24 hr 30 mg PO DAILY 0RF Discharge Orders: Discharge Order (Routine); Ordered 09/23/21 Ordered By: Jesse Peralta Diet: advance to usual diet Activity on Discharge: As tolerated Stand Alone Forms: Patient Portal Discharge page Care Plan Goals: avoid falls Health Concerns: orthostatic hypotension Plan of Treatment: hold imdur, stop depakote, monitor closely for falls Assessment: see above
--- NOTE | 2021-09-22 09:55 | MHC.CM.PN ---
Patient has been medically cleared for dc to home ([facility]), self care.
--- NOTE | 2021-09-22 10:13 | P.PNIM_ITS ---
Subjective Subjective Date of Service: 09/22/21 Interval History: cc: falls interval history: no complaints Cardiovascular Cardiovascular: Reports no additional cardiovascular complaints Respiratory Respiratory: Reports no additional respiratory complaints Physical Exam Vital Signs: Vital Signs: Last Vital Signs Temp 97.4 F 09/22/21 07:24 Pulse 77 09/22/21 07:24 Resp 18 09/22/21 07:24 BP 111/77 09/22/21 07:24 Pulse Ox 95 09/22/21 07:24 BMI result Body Mass Index 29.6 General: AO X 3, no acute distress Resp: CTA bilateral, no accessory muscles used CVS: S1,S2,RRR GI: soft, non tender, non distended Neuro: motor grossly intact, alert Psych: appropriate affect, impaired insight Objective Data Active Medications Aspirin (Aspirin Enteric Coated 81 Mg Tablet.) 81 mg PO DAILY [facility] Last Admin: 09/22/21 08:10 Dose: 81 mg Documented by: EVAN Atorvastatin Calcium (Atorvastatin Calcium 80 Mg Tablet) 80 mg PO BEDTIME [facility] Last Admin: 09/21/21 21:29 Dose: 80 mg Documented by: DIMITRI Benztropine Mesylate (Benztropine Mesylate 0.5 Mg Tablet) 0.5 mg PO BID [facility] Last Admin: 09/22/21 08:10 Dose: 0.5 mg Documented by: EVAN Enoxaparin Sodium (Enoxaparin Sodium 40 Mg/0.4 Ml Syringe) 40 mg SUBCUT Q24H [facility] Last Admin: 09/21/21 13:37 Dose: 40 mg Documented by: YEVGENIY Fluoxetine HCl (Fluoxetine Hcl 10 Mg Capsule) 10 mg PO DAILY [facility] Last Admin: 09/22/21 08:10 Dose: 10 mg Documented by: EVAN Isosorbide Mononitrate (Isosorbide Mononitrate 30 Mg Tab.Er.24h) 30 mg PO DAILY [facility]; Protocol Last Admin: 09/22/21 08:10 Dose: 30 mg Documented by: EVAN Lamotrigine (Lamotrigine 100 Mg Tablet) 200 mg PO BID [facility] Last Admin: 09/22/21 08:09 Dose: 200 mg Documented by: EVAN Levetiracetam (Levetiracetam 1,000 Mg Tablet) 1,000 mg PO BID [facility] Last Admin: 09/22/21 08:10 Dose: 1,000 mg Documented by: EVAN Multivitamins/Vitamin C (Multivitamin Tablet) 1 tab PO DAILY [facility] Last Admin: 09/22/21 08:10 Dose: 1 tab Documented by: EVAN Patient Own Med ( Thioridazine 50 Mg Tablet) 1 each PO BEDTIME [facility] Last Admin: 09/21/21 21:43 Dose: 1 each Documented by: DIMITRI Omeprazole (Omeprazole 20 Mg Capsule.Dr) 20 mg PO DAILY@1600 [facility] Last Admin: 09/21/21 15:26 Dose: 20 mg Documented by: YEVGENIY Pharmacy Consult (Consult Rx Perform Med Rec) 1 each MISCELLANE ONCE PRN PRN Reason: Consult order Risperidone (Risperidone 2 Mg Tablet) 2 mg PO BID [facility] Last Admin: 09/22/21 08:10 Dose: 2 mg Documented by: EVAN Sodium Chloride (0.9 % Sodium Chloride Flush 3 Ml Syringe) 3 ml IVFLUSH QSHIFT [facility] Last Admin: 09/22/21 08:09 Dose: 3 ml Documented by: EVAN Labs CBC & Chem 7: 09/22/21 06:22 09/22/21 06:22 Labs: Laboratory Results - last 24 hr 09/21/21 09/21/21 09/21/21 11:31 11:31 11:31 MCV 88.0 MCH 29.4 MCHC 33.4 RDW 13.7 Plt Count 151 L MPV 10.0 Immature Gran % (Auto) 0.5 H Neut % (Auto) 47.5 Lymph % (Auto) 35.6 [place] % (Auto) 13.8 H Eos % (Auto) 2.4 Baso % (Auto) 0.2 Lymph # (Auto) 1.5 [place] # (Auto) 0.6 Eos # (Auto) 0.1 Baso # (Auto) 0.0 Abs Immat Gran (auto) 0.02 Absolute Neuts (auto) 2.0 Absolute Nucleated RBC 0.000 Nucleated RBC % (auto) 0.0 PT 14.0 H INR 1.2 H Anion Gap 12 Estim Creat Clear Calc 101.1 Estimated GFR > 60 Random Glucose 95 Fasting Glucose Calcium 9.0 Magnesium 2.0 Total Bilirubin 1.0 Direct Bilirubin 0.4 AST 23 ALT 35 Alkaline Phosphatase 51 Troponin I High Sens B-Natriuretic Peptide Total Protein 5.9 L Albumin 3.9 TSH COVID-19 (PATRICIO) COVID-19 Clin Com 09/21/21 09/21/21 09/21/21 11:31 11:31 11:31 MCV MCH MCHC RDW Plt Count MPV Immature Gran % (Auto) Neut % (Auto) Lymph % (Auto) [place] % (Auto) Eos % (Auto) Baso % (Auto) Lymph # (Auto) [place] # (Auto) Eos # (Auto) Baso # (Auto) Abs Immat Gran (auto) Absolute Neuts (auto) Absolute Nucleated RBC Nucleated RBC % (auto) PT INR Anion Gap Estim Creat Clear Calc Estimated GFR Random Glucose Fasting Glucose Calcium Magnesium Total Bilirubin Direct Bilirubin AST ALT Alkaline Phosphatase Troponin I High Sens < 3.5 B-Natriuretic Peptide 98 Total Protein Albumin TSH 1.58 COVID-19 (PATRICIO) Negative COVID-19 Clin Com See Note 09/22/21 09/22/21 06:22 06:22 MCV 90.2 MCH 31.4 MCHC 34.8 RDW 14.6 Plt Count 148 L MPV 10.5 Immature Gran % (Auto) Neut % (Auto) Lymph % (Auto) [place] % (Auto) Eos % (Auto) Baso % (Auto) Lymph # (Auto) [place] # (Auto) Eos # (Auto) Baso # (Auto) Abs Immat Gran (auto) Absolute Neuts (auto) Absolute Nucleated RBC 0.000 Nucleated RBC % (auto) 0.0 PT INR Anion Gap 11 L Estim Creat Clear Calc 125.7 Estimated GFR > 60 Random Glucose Fasting Glucose 92 Calcium 8.8 Magnesium Total Bilirubin Direct Bilirubin AST ALT Alkaline Phosphatase Troponin I High Sens B-Natriuretic Peptide Total Protein Albumin TSH COVID-19 (PATRICIO) COVID-19 Clin Com Assessment and Plan (1) Bradycardia: Status: Acute Plan 55M presneted with dizzyness, bradycardia, hypotension dizziness, persistent atrial fibirrlation with slow ventricular response, hypotnesion continue to hold metoprolol mointor on tele no significant gena on tele, will hold off on ppm cardio following hold depakote check orthostatics monitor another 24hrs CAD asa, statin epilsepsy lamictal keppra intelectual delay with some behaviour abnormalities risperdal reason for continued hospitalization: cardio would like to monitor another 24hr on tele due to siginifcant symptoms causing multiple successive ED visits, Quality Stroke Does the patient have a stroke diagnosis?: No VTE Prior VTE?: No VTE Risk Level:: Medical - moderate - high VTE Device Contraindication: Treatment Not Indicated VTE Drug Contraindication: N/A - Med Ordered
--- NOTE | 2021-09-22 10:15 | MHC.CM.PN ---
Per MD, today's dc has been canceled(CARDIOLOGY'S REQUEST). CM will follow
--- NOTE | 2021-09-22 11:01 | P.CONCA_ITS ---
History of Present Illness History of Present Illness Date of Service: 09/22/21 Chief complaint: Afib SVR Narrative: This is a cardiology consultation regarding hypotension and atrial fibrillation. Patient is generally seen by Dr. Palacio as well as Siria Archer NP in our office. Most recently, seen few weeks back and he was set up for cardiac catheterization based on abnormal stress testing. In the last week, he has had several ER visits. Initially, he came for atrial fibrillation slow ventricular rate and low blood pressure. He was also feeling dizzy. Then beta-evelyn dose was cut back. He was then sent back home. He returned again with symptoms which were similar. This time beta-blockers were stopped completely. However he once again came back again with similar symptoms and hence he was admitted. Currently off beta-blockers completely. Otherwise he has gotten numerous other noncardiac symptoms like lethargy, not feeling good, gait issues, not very communicated extra. It seems that Depakote was added about 8-9 days ago and symptoms started after that. Hence not clear if it is medication related or not. With regard to the atrial fibrillation itself, there is a prior EKG going back as much as 2013 that showed the same. However in between EKGs at shown sinus rhythm. He is not on any anticoagulation for this. With regard to cardiac symptoms, random chest pains but no specific patterns. No other cardiac symptoms at this time. Discussed with the chemical compounder helper [facility] in detail. According to her, blood pressures at home has been as low as the 60s and heart rates into the 30s. Review of Systems Review of Systems: Yes all other systems are reviewed and are negative Constitutional: Constitutional: Reports as per HPI and Reports weakness Eyes: Eyes: Reports as per HPI ENT: Reports as per HPI and Reports dizziness Cardiovascular: Cardiovascular: Reports as per HPI, Denies acrocyanosis, Denies cool extremities, Reports chest pain, Denies leg edema, Reports lightheadedness, Denies palpitations and Denies dyspnea Respiratory: Respiratory: Reports as per HPI, Reports no additional respiratory complaints and Denies dyspnea Gastrointestinal: Gastrointestinal: Reports as per HPI and Reports no additional gastrointestinal complaints Genitourinary: Genitourinary: Reports no additional male genitourinary co mplaints and Reports as per HPI Musculoskeletal: Musculoskeletal: Reports no additional musculoskeletal complaints, Reports as per HPI and Reports abnormal gait Integumentary/Breasts: Skin/Breast: Reports system reviewed and no additional complaints, except as docu Neurologic: Reports system reviewed and no additional complaints, except as documented, Reports as per HPI, Reports abnormal gait, Reports dizziness and Reports weakness Psychiatric: Psychiatric: Reports no additional psychiatric complaints and Reports as per HPI Endocrine: Endocrine: Reports no additional endocrine complaints, Reports as per HPI and Denies palpitations Hematologic/Lymphatic: Hematologic/Lymphatic: Reports no additional hematologic/lymphatic complaints and Reports as per HPI Allergic/Immunologic: Allergic/Immunologic: Reports no additional allergic/immunologic complaints and Reports as per HPI [facility] Past Medical History Medical History CAD (coronary artery disease) Hyperlipidemia Obesity Seizure Family History Family History Father CVD (cardiovascular disease) Mother CVD (cardiovascular disease) Surgical History Surgical History Hx of cardiac cath Stented coronary artery Social History Social History Patient Tobacco Use Status: Never used Tobacco service: No Current occupational status: disabled Meds Allergies Allergy/AdvReac Type Severity Reaction Status Date / Time No Known Allergies Allergy Verified 06/20/21 13:35 [No Known Allergies*] Active Medications: Current Medications Aspirin (Aspirin Enteric Coated 81 Mg Tablet.) 81 mg PO DAILY [facility] Last Admin: 09/22/21 08:10 Dose: 81 mg Documented by: Atorvastatin Calcium (Atorvastatin Calcium 80 Mg Tablet) 80 mg PO BEDTIME [facility] Last Admin: 09/21/21 21:29 Dose: 80 mg Documented by: Benztropine Mesylate (Benztropine Mesylate 0.5 Mg Tablet) 0.5 mg PO BID [facility] Last Admin: 09/22/21 08:10 Dose: 0.5 mg Documented by: Enoxaparin Sodium (Enoxaparin Sodium 40 Mg/0.4 Ml Syringe) 40 mg SUBCUT Q24H [facility] Last Admin: 09/21/21 13:37 Dose: 40 mg Documented by: Fluoxetine HCl (Fluoxetine Hcl 10 Mg Capsule) 10 mg PO DAILY [facility] Last Admin: 09/22/21 08:10 Dose: 10 mg Documented by: Lamotrigine (Lamotrigine 100 Mg Tablet) 200 mg PO BID [facility] Last Admin: 09/22/21 08:09 Dose: 200 mg Documented by: Levetiracetam (Levetiracetam 1,000 Mg Tablet) 1,000 mg PO BID [facility] Last Admin: 09/22/21 08:10 Dose: 1,000 mg Documented by: Multivitamins/Vitamin C (Multivitamin Tablet) 1 tab PO DAILY [facility] Last Admin: 09/22/21 08:10 Dose: 1 tab Documented by: Patient Own Med ( Thioridazine 50 Mg Tablet) 1 each PO BEDTIME [facility] Last Admin: 09/21/21 21:43 Dose: 1 each Documented by: Omeprazole (Omeprazole 20 Mg Capsule.) 20 mg PO DAILY@1600 [facility] Last Admin: 09/21/21 15:26 Dose: 20 mg Documented by: Pharmacy Consult (Consult Rx Perform Med Rec) 1 each MISCELLANE ONCE PRN PRN Reason: Consult order Risperidone (Risperidone 2 Mg Tablet) 2 mg PO BID [facility] Last Admin: 09/22/21 08:10 Dose: 2 mg Documented by: Sodium Chloride (0.9 % Sodium Chloride Flush 3 Ml Syringe) 3 ml IVFLUSH QSHIFT [facility] Last Admin: 09/22/21 08:09 Dose: 3 ml Documented by: Home Medications Medication Instructions Recorded Confirmed Last Taken Type aspirin 81 mg tablet,delayed 81 mg PO DAILY 05/31/20 09/21/21 09/21/21 History release atorvastatin 80 mg tablet 80 mg PO BEDTIME 05/31/20 09/21/21 09/20/21 History benztropine 0.5 mg tablet 0.5 mg PO BID 05/31/20 09/21/21 09/21/21 History fluoxetine 10 mg capsule 10 mg PO DAILY 05/31/20 09/21/21 09/21/21 History multivitamin 1 tab PO QAM 05/31/20 09/21/21 09/21/21 History omeprazole 20 mg capsule,delayed 20 mg PO DAILY@1600 05/31/20 09/21/21 09/20/21 History release lamotrigine 100 mg tablet 200 mg PO BID tab 05/23/21 09/21/21 09/21/21 History levetiracetam 500 mg tablet 1,000 mg PO BID tab 05/23/21 09/21/21 09/21/21 History risperidone 2 mg tablet 2 mg PO BID tab 05/23/21 09/21/21 09/21/21 History thioridazine 50 mg tablet 50 mg PO BEDTIME tab 05/23/21 09/21/21 09/20/21 History acetaminophen 325 mg tablet 650 mg PO Q4H PRN 09/21/21 09/21/21 Unknown History Physical Exam Vital Signs: Vital Signs: Last Vital Signs Temp 97.4 F 09/22/21 07:24 Pulse 77 09/22/21 07:24 Resp 18 09/22/21 07:24 BP 111/77 09/22/21 07:24 Pulse Ox 95 09/22/21 07:24 BMI result Body Mass Index 29.6 Const: General: comfortable HEENT: Other: Unremarkable Head: Yes normal to inspection Neck: Neck: Yes normal visual inspection Chest: Chest palpation & inspection: normal inspection of the chest Resp: Auscultation: clear to auscultation bilaterally Cardio: Palpation: normal PMI Heart sounds: S1 normal heart sound present, S2 normal heart sound present, no gallops, no murmurs and no rubs GI: Palpation (GI): Soft to palpation Back/Spine/Pelvis: Other: unremarkable Skin: General skin exam: no rashes or lesions noted Neuro: Cognition (Neuro): normal cognition Extrem: General: Yes normal to inspection Psych: Mental Status: mental status grossly normal Objective Labs and Meds Result diagrams: 09/22/21 06:22 09/22/21 06:22 Lab results: Laboratory Results - last 24 hr 09/21/21 09/21/21 09/21/21 11:31 11:31 11:31 WBC 4.2 L RBC 4.83 Hgb 14.2 Hct 42.5 MCV 88.0 MCH 29.4 MCHC 33.4 RDW 13.7 Plt Count 151 L MPV 10.0 Immature Gran % (Auto) 0.5 H Neut % (Auto) 47.5 Lymph % (Auto) 35.6 [place] % (Auto) 13.8 H Eos % (Auto) 2.4 Baso % (Auto) 0.2 Lymph # (Auto) 1.5 [place] # (Auto) 0.6 Eos # (Auto) 0.1 Baso # (Auto) 0.0 Abs Immat Gran (auto) 0.02 Absolute Neuts (auto) 2.0 Absolute Nucleated RBC 0.000 Nucleated RBC % (auto) 0.0 PT 14.0 H INR 1.2 H Sodium 132 L Potassium 4.2 Chloride 95 L Carbon Dioxide 29 Anion Gap 12 BUN 11 Creatinine 1.00 Estim Creat Clear Calc 101.1 Estimated GFR > 60 Random Glucose 95 Fasting Glucose Calcium 9.0 Magnesium 2.0 Total Bilirubin 1.0 Direct Bilirubin 0.4 AST 23 ALT 35 Alkaline Phosphatase 51 Troponin I High Sens B-Natriuretic Peptide Total Protein 5.9 L Albumin 3.9 TSH COVID-19 (PATRICIO) COVID-19 Clin Com 09/21/21 09/21/21 09/21/21 11:31 11:31 11:31 WBC RBC Hgb Hct MCV MCH MCHC RDW Plt Count MPV Immature Gran % (Auto) Neut % (Auto) Lymph % (Auto) [place] % (Auto) Eos % (Auto) Baso % (Auto) Lymph # (Auto) [place] # (Auto) Eos # (Auto) Baso # (Auto) Abs Immat Gran (auto) Absolute Neuts (auto) Absolute Nucleated RBC Nucleated RBC % (auto) PT INR Sodium Potassium Chloride Carbon Dioxide Anion Gap BUN Creatinine Estim Creat Clear Calc Estimated GFR Random Glucose Fasting Glucose Calcium Magnesium Total Bilirubin Direct Bilirubin AST ALT Alkaline Phosphatase Troponin I High Sens < 3.5 B-Natriuretic Peptide 98 Total Protein Albumin TSH 1.58 COVID-19 (PATRICIO) Negative COVID-19 Clin Com See Note 09/22/21 09/22/21 06:22 06:22 WBC 7.0 RBC 4.59 L Hgb 14.4 Hct 41.4 L MCV 90.2 MCH 31.4 MCHC 34.8 RDW 14.6 Plt Count 148 L MPV 10.5 Immature Gran % (Auto) Neut % (Auto) Lymph % (Auto) [place] % (Auto) Eos % (Auto) Baso % (Auto) Lymph # (Auto) [place] # (Auto) Eos # (Auto) Baso # (Auto) Abs Immat Gran (auto) Absolute Neuts (auto) Absolute Nucleated RBC 0.000 Nucleated RBC % (auto) 0.0 PT INR Sodium 136 Potassium 4.2 Chloride 100 Carbon Dioxide 29 Anion Gap 11 L BUN 6 L Creatinine 0.79 Estim Creat Clear Calc 125.7 Estimated GFR > 60 Random Glucose Fasting Glucose 92 Calcium 8.8 Magnesium Total Bilirubin Direct Bilirubin AST ALT Alkaline Phosphatase Troponin I High Sens B-Natriuretic Peptide Total Protein Albumin TSH COVID-19 (PATRICIO) COVID-19 Clin Com ECG Interpretation: EKG shows atrial fibrillation with his lower rate at 53/Min. On telemetry, he is on atrial fibrillation in the 60s. Assessment and Plan (1) Atrial fibrillation with slow ventricular response: Status: Acute (2) Arterial hypotension: Qualifiers: Hypotension type: idiopathic hypotension Qualified Code(s): I95.0 - Idiopathic hypotension Status: Acute (3) Atherosclerotic cardiovascular disease: Status: Acute Plan Pertinent data reviewed. Cardiac catheterization 2013-occluded mid to distal circumflex, bare metal stenting. Moderate RCA disease. Myocardial perfusion imaging study from 05/2021-mild ischemia in the right coronary artery territory; possible nontransmural infarct in circumflex territory. No recent echocardiograms. In the labs, potassium 4.2. Creatinine 0.79. Troponin unremarkable. Cardiac BNP 98. Overall, possible multifactorial etiology for symptoms. Atrial fibrillation slow rate could be from beta-evelyn use. This has been now stopped completely. Telemetry shows reasonable heart rates. With regard to low blood pressure, again off beta-blockers and that should help. Other symptoms like lethargy and not communicate of could be related to neurological issues. It seems that Depakote was added just from the time symptoms started. This will need to be addressed. We will obtain an echocardiogram for LV function assessment. With regard to anticoagulation, to be decided based on LVEF. Will follow up with you. Discussed with Dr. Peralta. Procedures Date of Service Date of Service: 09/22/21
--- NOTE | 2021-09-22 11:40 | CA_ITS ---
Transthoracic Echocardiogram Patient (Last, First, Middle): Ezequiel Winchester, Gender: Male Date of : 1965 Age: 55 Procedure Date: 09/22/2021 Procedure Type: Transthoracic [place] [facility] [place]: 182.88 cm Weight: 98.88 kg BSA: 2.21 m2 Heart Rate: bpm BP: 121 / 71 mmHg Rooming House Inspector: DIANELYS Referring MD: Jesse Peralta MD Symptoms: falls Study Quality: Fair ECG Rhythm: Atrial Fibrillation Conclusions: - The left ventricular systolic function is normal. The calculated ejection fraction is 67% by biplane method. - No obvious valvular pathology seen on this study. Findings Left Ventricle Normal left ventricular cavity size. There is normal left ventricular wall thickness. The left ventricular systolic function is normal. The calculated ejection fraction is 67% by biplane method. There is no evidence of regional wall motion abnormalities. Diastolic function is indeterminate on the basis of available data. Right Ventricle Normal right ventricular cavity size and systolic function. Atria The left atrium is mildly dilated. The right atrium is normal in size. Aortic Valve There is a normal trileaflet aortic valve. There is no aortic valve stenosis. There is no aortic valve regurgitation. Mitral Valve The mitral valve appears normal. There is no mitral valve regurgitation. There is no mitral valve stenosis. Pulmonic Valve The pulmonic valve was not well visualized. Tricuspid Valve Normal tricuspid valve structure. There is trace tricuspid valve regurgitation. The pulmonary artery systolic pressure is normal. Great Vessels The asc aorta is normal in size. Venous The inferior vena cava is normal in size and collapses greater than 50% with inspiration. Pericardium/Pleural There is a trivial pericardial effusion. Prior Study Comparison No significant change compared to prior study dated: 03/10/2014. Recommendations, Care & Conclusions No obvious valvular pathology seen on this study. Measurements 2D Linear Measurements IVSd: 1.10 0.6-0.9/0.6-1.0 cm LVIDd: 4.87 3.9-5.3/4.2-5.9 cm LVIDd Index: 2.20 2.4-3.2/2.2-3.1 cm/m2 LVIDs: 3.29 2.0-3.6 cm LVPWd: 1.06 0.7-1.1 cm LA Diam: 4.10 2.7-3.8/3.0-4.0 cm LAIDs Index: 1.86 1.5-2.3 cm/m2 LV Mass: 241.20 67-162/88-224 g LV Mass Index: 109.14 43-95/49-115 g/m2 LVOT Diam: 2.10 3.0+(-)1.3 cm 2D Systolic Function EF 4C: 69.90 >55% EF 2C: 64.20 >55% EF BiP: 67.30 >55% Mitral Valve MV Pk E: 0.93 MV Decel Time: 142.00 E'Lateral: 15.80 E'Medial: 11.90 E/E' Med: 7.80 E/E' Lat: 5.90 PHT: 42.00 MVA PHT: 5.24 Decel [place]: 6.53 Aortic Valve AoV Pk Cr: 1.23 AoV Mn Cr: 0.88 AoV VTI: 0.23 AoV Pk Grad: 6.00 Aov Mn Grad: 3.00 JOEL Cont.VTI: 2.60 LVOT LVOT Pk Cr: 0.91 LVOT Mn Cr: 0.62 LVOT VTI: 0.18 LVOT Pk Grad: 3.00 LVOT Mn Grad: 2.00 LVOT Diam: 2.10 LVOT Area: 3.46 Diastolic Function MV Pk E: 0.93 E'Medial: 11.90 E/E' Med: 7.80 E' Laterial: 15.80 E/E' Lat: 5.90 Right Ventricle TAPSE (mm): 2.29 TVS' Cr: 14.90 Tricuspid Valve TR Pk Cr: 2.12 TR Pk Grad: 18.00 RA Press: 3.00 RVSP: 21.00 Great Vessels Aorta Sinus of Valsalva: 3.35 2.0-3.[address] [place]: 2.32 1.7-3.4 cm Ao Asc: 2.80 2.1-3.4 cm Updated in Other Vendor System with Status of Final Tyson Dey MD electronically signed on 09/22/2021 3:14:09 PM with status of Final
[2021-09-22] MEDS: Enoxaparin Sodium 40 MG/0.4 ML SYRINGE SUBCUT (12:58)
[2021-09-22] MEDS: Omeprazole 20 MG CAPSULE.DR PO (17:05)
[2021-09-22] MEDS: Atorvastatin Calcium 80 MG TABLET PO (19:42)
[2021-09-23 03:16] VITALS: BP 115/63; PULSE 71; RESP 17; TEMP 36.5; O2SAT 92
[2021-09-23 06:08] VITALS: BP 122/60; PULSE 80
[2021-09-23 06:09] VITALS: BP 123/62; PULSE 84
[2021-09-23 08:00] VITALS: BP 117/68; PULSE 73; RESP 17; TEMP 36.6; O2SAT 93
[2021-09-23] MEDS: Multivitamin TABLET 1 TAB PO (09:24)
[2021-09-23] MEDS: lamoTRIgine 100 MG TABLET 200 MG PO (09:25)
[2021-09-23] MEDS: FLUoxetine HCl 10 MG CAPSULE PO (09:25)
[2021-09-23] MEDS: Aspirin Enteric Coated 81 MG TABLET.DR PO (09:26)
[2021-09-23] MEDS: Benztropine Mesylate 0.5 MG TABLET PO (09:26)
[2021-09-23] MEDS: levETIRAcetam 1,000 MG TABLET 1000 MG PO (09:26)
[2021-09-23] MEDS: 0.9 % Sodium Chloride Flush 3 ML SYRINGE IVFLUSH (09:27)
[2021-09-23] MEDS: risperiDONE 2 MG TABLET PO (09:33)
--- NOTE | 2021-09-23 11:31 | P.PNCA_ITS ---
Subjective Subjective Date of Service: 09/23/21 Interval history: Seen about 2 hours ago. He stated that he was feeling good. No cardiac complaints or in fact any complaints. Dizziness was improved. Review of Systems Review of Systems Yes all other systems are reviewed and are negative Constitutional: Reports as per HPI Eyes: Reports as per HPI Reports as per HPI Cardiovascular: Reports as per HPI, Denies acrocyanosis, Denies cool extremities, Denies chest pain, Denies leg edema, Denies lightheadedness, Denies palpitations and Denies dyspnea Respiratory: Reports as per HPI, Reports no additional respiratory complaints a nd Denies dyspnea Gastrointestinal: Reports as per HPI and Reports no additional gastrointestinal complaints Genitourinary: Reports no additional male genitourinary complaints and Reports as per HPI Musculoskeletal: Reports no additional musculoskeletal complaints and Reports as per HPI Skin/Breast: Reports system reviewed and no additional complaints, except as docu Reports system reviewed and no additional complaints, except as documented and Reports as per HPI Psychiatric: Reports no additional psychiatric complaints and Reports as per HPI Endocrine: Reports no additional endocrine complaints, Reports as per HPI and Denies palpitations Hematologic/Lymphatic: Reports no additional hematologic/lymphatic complaints and Reports as per HPI Allergic/Immunologic: Reports no additional allergic/immunologic complaints and Reports as per HPI Physical Exam Vital Signs: Last Vital Signs Temp 97.8 F 09/23/21 08:00 Pulse 73 09/23/21 08:00 Resp 17 09/23/21 08:00 BP 117/68 09/23/21 08:00 Pulse Ox 93 09/23/21 08:00 BMI result Body Mass Index 29.6 Const General: comfortable HEENT Other: Unremarkable Head: Yes normal to inspection Neck Neck: Yes normal visual inspection Chest Chest palpation & inspection: normal inspection of the chest Resp Auscultation: clear to auscultation bilaterally Cardio Palpation: normal PMI Heart sounds: S1 normal heart sound present, S2 normal heart sound present, no gallops, no murmurs and no rubs GI Palpation (GI): Soft to palpation Back/Spine/Pelvis Other: unremarkable Skin General skin exam: no rashes or lesions noted Neuro Cognition (Neuro): normal cognition Extrem General: Yes normal to inspection Psych Mental Status: mental status grossly normal Objective Labs and Meds Result diagrams: 09/22/21 06:22 09/22/21 06:22 Progress Note: A&P Assessment and plan (1) Atrial fibrillation with slow ventricular response: Status: Acute (2) Arterial hypotension: Status: Acute (3) Atherosclerotic cardiovascular disease: Status: Acute Plan Pertinent data reviewed. Cardiac catheterization 2013-occluded mid to distal circumflex, bare metal stenting. Moderate RCA disease. Myocardial perfusion imaging study from 05/2021-mild ischemia in the right coronary artery territory; possible nontransmural infarct in circumflex territory. Echocardiogram this admission with LVEF of 67% but otherwise unremarkable. In the labs, potassium 4.2. Creatinine 0.79. Troponin unremarkable. Cardiac BNP 98. His telemetry shows atrial fibrillation with rate around 70/Min. No bradycardia or tachycardia. He is now off beta-blockers. With regard to local pressure, that seems improved after coming up beta-blockers. With regard to other symptoms like lethargy and not able to communicate, they are also improved after stopping the Depakote. Overall, stable from cardiac. He can be discharged. Cardiac catheterization appointment can be kept as originally scheduled. Time Spent With Patient Time: Total time spent is greater than 50% in coordination of care (as documented) at patient's floor/unit and/or counseling patient: 37 Progress Note: Quality Stroke Does the patient have a stroke diagnosis?: No Procedures Date of Service Date of Service: 09/23/21
== END 2021-09-23 10:21 | disposition home or self-care (01) ==
LOC: HO.ED 12:49 → HO.EDOVER 13:35 → HO.IMC 09-22 00:14
PROVIDERS: Admitting Provider Internal Medicine; Emergency Provider Emergency Medicine; PCP Internal Medicine; Visit Provider Internal Medicine
DX: R00.1 Bradycardia, unspecified (principal); I95.0 Idiopathic hypotension; I25.10 Atherosclerotic heart disease of native coronary artery without angina pectoris; I48.91 Unspecified atrial fibrillation; R94.31 Abnormal electrocardiogram [ECG] [EKG]; I10 Essential (primary) hypertension; E78.5 Hyperlipidemia, unspecified; E66.9 Obesity, unspecified; Z20.822 Contact with and (suspected) exposure to COVID-19; Z91.81 History of falling; Z98.890 Other specified postprocedural states; Z95.5 Presence of coronary angioplasty implant and graft; Z79.82 Long term (current) use of aspirin; Z79.899 Other long term (current) drug therapy
CPT/HCPCS: 36415; 80048; 80076; 83735; 83880; 84443; 84484; 85025; 85027; 85610; 87635; 93005; 93306; 96360; 96372; 99214; 99215; 99219; 99284; 99285; J1650; Q9957

== ENCOUNTER → 2021-10-05 13:17 | Outpatient (BNVA) | payer MEDICARE, MEDICAID, SELFPAY | PROVIDERS: PCP Internal Medicine; Referring Provider Internal Medicine; Visit Provider Nurse Practitioner Family | DX: I25.10 Atherosclerotic heart disease of native coronary artery without angina pectoris (principal); I48.92 Unspecified atrial flutter; E78.5 Hyperlipidemia, unspecified; E66.9 Obesity, unspecified; R07.89 Other chest pain; Z95.5 Presence of coronary angioplasty implant and graft; Z98.890 Other specified postprocedural states; Z68.29 Body mass index [BMI] 29.0-29.9, adult | CPT/HCPCS: 99212 ==

== ENCOUNTER → 2021-10-26 14:59 | Outpatient (REF) | payer MEDICARE, MEDICAID, SELFPAY ==
--- NOTE | 2021-10-26 15:14 | HM_ITS ---
* Total monitoring time 10 days and 11 hours. * Underlying rhythm is sinus as well as atrial fibrillation. 55% the time in atrial fibrillation. * While in sinus, average rate 79/Min. Lowest 46/Min. * While in atrial fibrillation rates, some rates are controlled but others rapid. Fastest rate 170/Min. * Rare ventricular ectopy with minimal burden. * No patient events. * Overall, high burden of atrial fibrillation as well as evidence of rapid rates. MTDD
== END ==
LOC: HO.CARD 14:59
PROVIDERS: PCP Internal Medicine; Visit Provider Nurse Practitioner Family
DX: I48.91 Unspecified atrial fibrillation (principal); R00.1 Bradycardia, unspecified; I48.92 Unspecified atrial flutter
CPT/HCPCS: 93242

== ENCOUNTER → 2021-12-21 14:11 | Outpatient (BNVA) | payer MEDICARE, MEDICAID, SELFPAY | PROVIDERS: PCP Internal Medicine; Referring Provider Internal Medicine; Visit Provider Nurse Practitioner Family | DX: I48.92 Unspecified atrial flutter (principal); R07.89 Other chest pain; I25.10 Atherosclerotic heart disease of native coronary artery without angina pectoris; E78.5 Hyperlipidemia, unspecified; E66.9 Obesity, unspecified; Z95.5 Presence of coronary angioplasty implant and graft; Z79.899 Other long term (current) drug therapy; Z98.890 Other specified postprocedural states | CPT/HCPCS: 99212 ==

== ENCOUNTER 2022-02-15 14:37 | Emergency (ER) | payer MEDICARE, MEDICAID, SELFPAY ==
[2022-02-15 15:01] VITALS: BP 127/79; PULSE 77; RESP 12; TEMP 36.3; O2SAT 94; BMI 38.7
== END 2022-02-15 21:36 | disposition left against medical advice (07) ==
PROVIDERS: Emergency Provider Emergency Medicine; PCP Internal Medicine
DX: Z04.3 Encounter for examination and observation following other accident (principal)
CPT/HCPCS: 99281

== ENCOUNTER → 2022-04-25 10:24 | Outpatient (BNVA) | payer MEDICARE, MEDICAID, SELFPAY | PROVIDERS: PCP Internal Medicine; Referring Provider Internal Medicine; Visit Provider Internal Medicine Cardiovascular Disease | DX: I48.0 Paroxysmal atrial fibrillation (principal); I25.10 Atherosclerotic heart disease of native coronary artery without angina pectoris | CPT/HCPCS: 93005; 99212 ==

== ENCOUNTER 2022-05-28 10:51 | Outpatient (REF) | payer MEDICARE, MEDICAID, SELFPAY | END 2022-05-28 10:52 | disposition home or self-care (01) | LOC: HO.SH 10:51 | PROVIDERS: Visit Provider Internal Medicine | DX: Z01.118 Encounter for examination of ears and hearing with other abnormal findings (principal); H90.3 Sensorineural hearing loss, bilateral | CPT/HCPCS: 92557; 92567 ==

== ENCOUNTER 2023-05-30 13:47 | Outpatient (AMB) | payer MEDICARE, MEDICAID, SELFPAY ==
--- NOTE | 2023-05-30 13:52 | A.OFFVIS_ITS ---
Intake Vital Signs 05/30/23 13:54 Height 6 ft Weight 213 lb 13.574 oz BMI 29.0 BP 122/78 Blood Pressure Location Lt brachial Position Sitting Pulse 58 Intake Visit Reasons: 1 yr f/up Intake Note: 1 year follow-up with ekg feeling good Equipment Washer Required: No Allergies No Known Allergies [No Known Allergies*] Allergy (Verified 12/21/21 14:22) Medication List - Last Reconciled 05/30/23 by Morales Palacio MD acetaminophen 650 mg PO Q4H PRN aspirin 81 mg PO DAILY atorvastatin 80 mg PO BEDTIME benztropine 0.5 mg PO BID fluoxetine 10 mg PO DAILY lacosamide mg PO lamotrigine 200 mg PO BID levetiracetam 1,000 mg PO BID multivitamin 1 tab PO QAM omeprazole 20 mg PO DAILY@1600 risperidone 2 mg PO .qhs risperidone 1 mg PO .am thioridazine 25 mg PO BEDTIME HPI HPI Comments History of Present Illness Details Tashi comes for follow-up with his care provider. He continues to intermittent chest pain for which she underwent cardiac catheterization September 2021 which had shown nonobstructive disease. He was also noted at that time to have atrial flutter. Since then the Holter monitor shows intermittent atrial flutter. He was supposed to be on metoprolol therapy although he is currently not getting any metoprolol. He is also currently not on any oral anticoagulati on. He denies any symptoms of palpitations or irregular heartbeat or lightheadedness or syncope. He takes all his medications as prescribed. No recent lipid panel. [facility] Medical History Status post left heart catheterization Arterial hypotension Seizure Atrial fibrillation Abnormal nuclear stress test Atypical chest pain CAD (coronary artery disease) Hyperlipidemia Obesity Surgical History Stented coronary artery Hx of cardiac cath Family History Father CVD (cardiovascular disease) Mother CVD (cardiovascular disease) Social History Patient Tobacco Use Status: Never used Tobacco service: No Current occupational status: disabled Review of Systems Const Denies chills, Denies fatigue, Denies fever(s), Denies frequent falls, Denies weakness, Denies weight gain and Denies weight loss ENT Denies dizziness Card Denies chest pain, Denies leg edema, Denies lightheadedness, Denies palpitations, Denies dyspnea, Denies dyspnea on exertion, Denies orthopnea and Denies other (loss of consciousness) Resp Denies cough, Denies dyspnea and Denies dyspnea on exertion GI Denies hematochezia and Denies change in stool character Musc Denies abnormal gait, Denies muscle weakness, Denies numbness, Denies radiating pain into limb and Denies tingling Neuro Denies abnormal gait, Denies dizziness, Denies frequent falls, Denies numbness, Denies tingling and Denies weakness Endo Denies fatigue and Denies palpitations Physical Exam Vital Signs: Last Vital Signs Pulse 58 05/30/23 13:54 BP 122/78 05/30/23 13:54 BMI result Body Mass Index 29.0 Const General: cooperative, healthy appearing, comfortable and no acute distress Orientation/consciousness: patient oriented x3 Neck Neck: Yes normal visual inspection and Yes no JVD Carotids: normal carotid upstroke Chest Chest palpation & inspection: normal inspection of the chest Resp Effort & Inspection: normal respiratory effort Auscultation: clear to auscultation bilaterally, no crackles, no rales, no rhonchi and no wheezes Cardio Jugular venous distension: no JVD Rate: regular rate Rhythm: regular rhythm Heart sounds: S1 normal heart sound present, S2 normal heart sound present, no gallops, no murmurs and no rubs GI Inspection: Yes normal to inspection Neuro General: patient oriented x3 Extrem General: Yes normal to inspection and No no pedal edema Psych Appearance: grossly normal Mental Status: mental status grossly normal Office Procedures EKG Details: EKG shows sinus bradycardia with first-degree AV block otherwise normal EKG [id number], Complete Assessment & Plan Assessment & Plan (1) CAD (coronary artery disease): Comment: ACS, December 2013. Stable since then on medical therapy Code(s): I25.10 - Atherosclerotic heart disease of [place] coronary artery without angina pectoris Plan: Patient with prior CAD with acute coronary syndrome with is bare metal stent to the circumflex artery. Repeat cardiac catheterization in 2021 at shown nonobstructive disease. Continue high-intensity statin therapy. Target goal LDL closer to 60 mg/dL. Advised lipid panel near future. Blood pressure is currently well optimized. He has had prior issues with syncope and low blood pressure with therefore avoid any new medications at this point time. Advised to maintain adequate hydration. For now continue aspirin therapy unless we need to switch him to an oral anticoagulant therapy. Discussed with him. Advised to call me with any new exertional symptoms. (2) Paroxysmal atrial fibrillation: Code(s): I48.0 - Paroxysmal atrial fibrillation Plan: Patient noted to have paroxysmal atrial fibrillation which is currently asymptomatic and currently not having any symptoms related to it. On today's EKG has sinus bradycardia with therefore avoid rate lowering medications. However CHADSVASc score is 1. If he has any atrial chamber enlargement and/or elevated BNP would consider switching him to oral anticoagulation therapy from aspirin. This was discussed with him. Avoidance of stimulants was discussed. Follow up in the clinic in 6 weeks after workup. Thank you for allowing me to partake in his care Coding Level of Care Code Est Pt Level 4 (76566) Diagnoses CAD (coronary artery disease) I25.10 Paroxysmal atrial fibrillation I48.0 CPT Codes EKG - CPT: 86315-[id number], Complete ([id number])
[2023-05-30 13:54] VITALS: BP 122/78; PULSE 58; BMI 29.0
== END 2023-05-30 14:23 | disposition home or self-care (01) ==
PROVIDERS: PCP Internal Medicine; Visit Provider Internal Medicine Cardiovascular Disease
DX: I25.10 Atherosclerotic heart disease of native coronary artery without angina pectoris (principal); I48.0 Paroxysmal atrial fibrillation
CPT/HCPCS: 93010; 99214

== ENCOUNTER → 2023-05-30 13:47 | Outpatient (BNVA) | payer MEDICARE, MEDICAID, SELFPAY | PROVIDERS: PCP Internal Medicine; Visit Provider Internal Medicine Cardiovascular Disease | DX: I25.10 Atherosclerotic heart disease of native coronary artery without angina pectoris (principal); I48.0 Paroxysmal atrial fibrillation | CPT/HCPCS: 93005; 99212 ==

== ENCOUNTER → 2023-06-20 09:31 | Outpatient (REF) | payer MEDICARE, MEDICAID, SELFPAY ==
--- NOTE | 2023-06-20 09:58 | CA_ITS ---
Transthoracic Echocardiogram Patient (Last, First, Middle): Ezequiel Winchester, Gender: Male Date of : 1965 Age: 57 Procedure Date: 06/20/2023 Procedure Type: Transthoracic Echocardiogram Location: OP Height: 170.18 cm Weight: 96.62 kg BSA: 2.08 m2 Heart Rate: bpm BP: 116 / 68 mmHg Dairy Manufacturing Technologist: DIANELYS Referring MD: Morales Palacio MD Symptoms: I48.0 - Paroxysmal atrial fibrillation Study Quality: Adequate ECG Rhythm: Sinus Conclusions: - The left ventricular systolic function is normal. The calculated ejection fraction is 62% by biplane method. - No obvious valvular pathology seen on this study. Findings Left Ventricle Normal left ventricular cavity size. There is normal left ventricular wall thickness. The left ventricular systolic function is normal. The calculated ejection fraction is 62% by biplane method. There is no evidence of regional wall motion abnormalities. Diastolic function is normal for age. LV peak GLS -14.9%, but suspect some underestimation. Right Ventricle Normal right ventricular cavity size and systolic function. Atria The left atrium is mildly dilated. The right atrium is normal in size. Aortic Valve There is a normal trileaflet aortic valve. There is no aortic valve stenosis. There is no aortic valve regurgitation. Mitral Valve The mitral valve appears normal. There is no mitral valve regurgitation. There is no mitral valve stenosis. Pulmonic Valve The pulmonic valve is likely normal. Tricuspid Valve There is trace tricuspid valve regurgitation. Tricuspid regurgitation envelope is inadequate for calculation of right ventricular systolic pressure. Great Vessels The asc aorta and aortic arch are normal in size. Venous The inferior vena cava is normal in size and collapses greater than 50% with inspiration. Pericardium/Pleural There is no evidence of pericardial effusion. Prior Study Comparison No significant change compared to prior study dated: 09/22/2021. Recommendations, Care & Conclusions No obvious valvular pathology seen on this study. Measurements 2D Linear Measurements IVSd: 1.00 0.6-0.9/0.6-1.0 cm LVIDd: 5.10 3.9-5.3/4.2-5.9 cm LVIDd Index: 2.45 2.4-3.2/2.2-3.1 cm/m2 LVIDs: 3.60 2.0-3.6 cm LVPWd: 0.79 0.7-1.1 cm LA Diam: 4.30 2.7-3.8/3.0-4.0 cm LAIDs Index: 2.07 1.5-2.3 cm/m2 LV Mass: 201.76 67-162/88-224 g LV Mass Index: 97.00 43-95/49-115 g/m2 LVOT Diam: 2.10 3.0+(-)1.3 cm 2D Systolic Function EF 4C: 62.20 >55% EF 2C: 58.70 >55% EF BiP: 61.50 >55% Mitral Valve MV Pk E: 0.69 MV PK A: 0.36 MV Decel Time: 237.00 E/A: 1.90 E'Lateral: 12.50 E'Medial: 8.92 E/E' Med: 7.70 E/E' Lat: 5.50 PHT: 69.00 MVA PHT: 3.19 Decel [place]: 2.91 Aortic Valve AoV Pk Cr: 1.02 AoV Mn Cr: 0.73 AoV VTI: 0.24 AoV Pk Grad: 4.00 Aov Mn Grad: 2.00 JOEL Cont.VTI: 2.95 LVOT LVOT Pk Cr: 1.02 LVOT Mn Cr: 0.58 LVOT VTI: 0.20 LVOT Pk Grad: 4.00 LVOT Mn Grad: 2.00 LVOT Diam: 2.10 LVOT Area: 3.46 Diastolic Function MV Pk E: 0.69 MV Pk A: 0.36 E/A: 1.90 E'Medial: 8.92 E/E' Med: 7.70 E' Laterial: 12.50 E/E' Lat: 5.50 Right Ventricle TAPSE (mm): 21.90 TVS' Cr: 12.00 Tricuspid Valve TR Pk Cr: 1.18 TR Pk Grad: 6.00 RA Press: 3.00 RVSP: 9.00 Great Vessels Aorta Sinus of Valsalva: 3.28 2.0-3.[address] [place]: 2.28 1.7-3.4 cm Ao Asc: 2.70 2.1-3.4 cm Ao Arch: 2.30 Updated in Other Vendor System with Status of Final Tyson Dey MD electronically signed on 06/22/2023 12:57:25 PM with status of Final
[2023-06-20 12:36] LABS: Cholesterol 133 mg/dL (<200); HDL Cholesterol 35 mg/dL (>40); LDL Cholesterol Calculated 74 mg/dL (<100); Prostate Specific Antigen 0.44 ng/mL (<0.05-4.0); Triglycerides 124 mg/dL (<150)
[2023-06-20 12:39] LABS: Alanine Aminotransferase 28 U/L (0-40); Anion Gap 10 (12-20); Aspartate Amino Transferase 26 U/L (5-37); Blood Urea Nitrogen 13 mg/dL (9-16); Calcium 9.5 mg/dL (8.4-10.2); Carbon Dioxide 34 mmol/L (22-29); Chloride 100 mmol/L (96-108); Estimated Glomerular Filt Rate > 60; Glucose Random 85 mg/dL (60-115); Potassium 4.3 mmol/L (3.3-5.1); Sodium 140 mmol/L (135-145)
[2023-06-20 13:41] LABS: Reflex LDLD? No
== END ==
LOC: HO.CARD 09:31
PROVIDERS: PCP Internal Medicine; Visit Provider Internal Medicine Cardiovascular Disease
DX: Z12.5 Encounter for screening for malignant neoplasm of prostate (principal); E78.5 Hyperlipidemia, unspecified; I48.0 Paroxysmal atrial fibrillation
CPT/HCPCS: 36415; 80048; 80061; 84153; 84450; 84460; 93306; 93356

== ENCOUNTER → 2023-06-20 09:58 | Outpatient (BNV) | payer MEDICARE, MEDICAID, SELFPAY | PROVIDERS: PCP Internal Medicine; Visit Provider Internal Medicine | DX: I48.0 Paroxysmal atrial fibrillation (principal) | CPT/HCPCS: 93306 ==

== ENCOUNTER → 2023-07-12 10:25 | Outpatient (BNVA) | payer MEDICARE, MEDICAID, SELFPAY | PROVIDERS: PCP Internal Medicine; Visit Provider Nurse Practitioner Family | DX: I48.0 Paroxysmal atrial fibrillation (principal); I25.10 Atherosclerotic heart disease of native coronary artery without angina pectoris; E78.5 Hyperlipidemia, unspecified; E66.9 Obesity, unspecified; Z95.5 Presence of coronary angioplasty implant and graft; Z98.890 Other specified postprocedural states | CPT/HCPCS: 99212 ==

== ENCOUNTER 2023-07-12 14:39 | Outpatient (AMB) | payer MEDICARE, MEDICAID, SELFPAY ==
--- NOTE | 2023-07-12 14:40 | MHC.OFFVIS ---
Intake Vital Signs 07/12/23 14:41 Height 6 ft Weight 217 lb 6.012 oz BMI 29.5 BP 114/62 Blood Pressure Location Lt brachial Position Sitting Pulse 84 Pulse Source Pulse Oximeter Intake Visit Reasons: 6 week follow up Certified First Assistant Required: No Storage Battery Inspector: Storage Battery Inspector Present Allergies No Known Allergies [No Known Allergies*] Allergy (Verified 07/12/23 14:44) Medication List - Last Reconciled 07/12/23 by Siria Archer, GIOVANNI-C acetaminophen 650 mg PO Q4H PRN aspirin 81 mg PO DAILY atorvastatin 80 mg PO BEDTIME benztropine 0.5 mg PO BID fluoxetine 10 mg PO DAILY lacosamide mg PO lamotrigine 200 mg PO BID levetiracetam 1,000 mg PO BID multivitamin 1 tab PO QAM omeprazole 20 mg PO DAILY@1600 risperidone 2 mg PO .qhs risperidone 1 mg PO .am thioridazine 25 mg PO BEDTIME HPI 6 week follow up HPI Details Ezequiel is a 57-year-old male with past medical history of hyperlipidemia, CAD, lad stent 12/2013, recurrent chest discomfort with abnormal stress test who had cardiac catheterization 09/2021 showing nonobstructive coronary artery disease, paroxysmal atrial fibrillation who recently had echocardiogram and now presents for follow-up. Today he reports he has been feeling well with no concerning symptoms. He denies any heart palpitations. He has not had any neurological changes. No chest discomfort, shortness of breath, presyncope, syncope, PND, orthopnea or edema. His half-way members are with him and state that he falls approximately twice a week. Some of his falls have created facial and head injuries. He has muscle spasms which cause him to fall either forward or backwards. He uses a cane but I am told that does not help this situation. [facility] Medical History (Updated 07/12/23 @ 15:43 by Siria Archer, GIOVANNI-C) Status post left heart catheterization Arterial hypotension Seizure Atrial fibrillation Abnormal nuclear stress test Atypical chest pain CAD (coronary artery disease) Hyperlipidemia Obesity Surgical History Stented coronary artery Hx of cardiac cath Family History Father CVD (cardiovascular disease) Mother CVD (cardiovascular disease) Social History Patient Tobacco Use Status: Never used Tobacco service: No Current occupational status: disabled Review of Systems Const Details: Frequent falls All systems reviewed & are unremarkable except as noted in HPI and below ENT Denies dizziness Card Denies chest pain, Denies chest pain at rest, Denies chest pain with activity, Denies rapid heart rate, Denies pedal edema, Denies edema, Denies leg edema, Denies lightheadedness, Denies palpitations, Denies dyspnea, Denies dyspnea on exertion and Denies orthopnea Resp Denies cough, Denies dyspnea and Denies dyspnea on exertion GI Denies hematochezia and Denies change in stool character Musc Denies abnormal gait, Reports limited range of motion, Reports muscle cramps, Denies muscle weakness, Denies numbness, Denies radiating pain into limb, Denies stiffness and Denies tingling Neuro Denies abnormal gait, Denies dizziness, Denies numbness and Denies tingling Endo Denies palpitations Physical Exam Vital Signs: Last Vital Signs Pulse 84 07/12/23 14:41 BP 114/62 07/12/23 14:41 BMI result Body Mass Index 29.5 Const General: cooperative, healthy appearing, comfortable and no acute distress Orientation/consciousness: patient oriented x3 Neck Neck: Yes normal visual inspection and Yes no JVD Resp Effort & Inspection: normal respiratory effort Auscultation: clear to auscultation bilaterally, no crackles, no rales, no rhonchi and no wheezes Cardio Jugular venous distension: no JVD Rate: regular rate Rhythm: regular rhythm Heart sounds: S1 normal heart sound present, S2 normal heart sound present, no murmurs and no rubs Neuro General: patient oriented x3 Extrem General: Yes normal to inspection, No no pedal edema and No calf tenderness Psych Appearance: grossly normal Mental Status: mental status grossly normal Speech and movement: Normal speech and movement present Assessment & Plan Assessment & Plan (1) Paroxysmal atrial fibrillation: Code(s): I48.0 - Paroxysmal atrial fibrillation Plan: Newer history of paroxysmal atrial fibrillation/flutter. Asymptomatic and treated with heart rate control using metoprolol. Pulse is regular on examination today. Initially he was a CHADS-VASc 0. Cardiac catheterization 09/2021 confirms CAD. Chads Vasc score is actually 1. He is on aspirin. An echocardiogram was done on 06/20/2023 showing EF 62%, normal valves, left atrium mildly dilated. With a dilation of his left atrium use of anticoagulation is recommended. Case workers present with patient and report that he falls approximately twice a week due to muscle spasm and has sustained head injuries. This would increase his risk of bleeding. Continue aspirin at this time. Plan to further discuss with Dr. Palacio. Cardiology follow-up in 3-4 months if he is started on anticoagulation, can be pushed out to 6 months if not. (2) CAD (coronary artery disease): Comment: ACS, December 2013. Stable since then on medical therapy Code(s): I25.10 - Atherosclerotic heart disease of [place] coronary artery without angina pectoris Plan: Prior reports of sharp pains to left chest region, nonexertional, lasting a second. He recalled similar symptoms around time of [place]. Nuclear stress test on 05/26/2021 showing finding suggesting mild ischemia in the right coronary artery territory and a mild fixed basal inferior lateral defect which could be artifact but can not exclude a small nontransmural infarct in the circumflex territory, EF 63% with stress and 56% with rest. He underwent cardiac catheterization on 09/26/2021 showing mild diffuse disease in the LAD, circumflex and RCA, 1st RPL with 50% stenosis. Today he reports no anginal sounding symptoms. Signs and symptoms of angina reviewed. Continue aspirin, metoprolol. Continue high-dose atorvastatin with ideal LDL goal less than 70. Labs done 06/20/2023 showed LDL 74. Patient has gained weight. Benefits of weight loss and increasing physical activity reviewed. (3) Status post left heart catheterization: Comment: 09/26/2021 left main normal, lad mild diffuse disease less than 30%, twin LAD, left circumflex mild diffuse disease less than 30%, stent in the mid circumflex patent, RCA mild diffuse disease, 1st RPL 50% stenosis Code(s): Z98.890 - Other specified postprocedural states Plan: As above (4) Stented coronary artery: Comment: bare metal stent to distal circumflex for his ACS, December 2013 Code(s): Z95.5 - Presence of coronary angioplasty implant and graft Plan: As above (5) Hyperlipidemia: Code(s): E78.5 - Hyperlipidemia, unspecified Plan: [place] LDL goal less than 70. Continue high-dose atorvastatin. (6) Obesity: Code(s): E66.9 - Obesity, unspecified Plan: Mostly sedentary, ambulates with cane. Plan Time spent on chart review, documentation, interview and assessment Coding Level of Care Code Est Pt Level 4 (24116) Diagnoses Paroxysmal atrial fibrillation I48.0 CAD (coronary artery disease) I25.10 Status post left heart catheterization Z98.890 Stented coronary artery Z95.5 Hyperlipidemia E78.5 Obesity E66.9 Time Spent (min) 28
[2023-07-12 14:41] VITALS: BP 114/62; PULSE 84; BMI 29.5
== END 2023-07-12 15:20 | disposition home or self-care (01) ==
PROVIDERS: PCP Internal Medicine; Visit Provider Nurse Practitioner Family
DX: I48.0 Paroxysmal atrial fibrillation (principal); I25.10 Atherosclerotic heart disease of native coronary artery without angina pectoris; Z98.890 Other specified postprocedural states; Z95.5 Presence of coronary angioplasty implant and graft; E78.5 Hyperlipidemia, unspecified; E66.9 Obesity, unspecified
CPT/HCPCS: 99214

== ENCOUNTER 2023-09-09 14:47 | Outpatient (REF) | payer MEDICARE, MEDICAID, SELFPAY | END 2023-09-09 14:48 | disposition home or self-care (01) | LOC: HO.SH 14:47 | PROVIDERS: PCP Internal Medicine; Visit Provider Internal Medicine | DX: Z01.10 Encounter for examination of ears and hearing without abnormal findings (principal); H90.3 Sensorineural hearing loss, bilateral | CPT/HCPCS: 92557; 92567 ==

== ENCOUNTER 2023-10-23 10:41 | Outpatient (AMB) | payer MEDICARE, MEDICAID, SELFPAY ==
--- NOTE | 2023-10-23 10:45 | A.OFFVIS_ITS ---
Vital Signs 10/23/23 10:46 Height 6 ft Weight 213 lb 13.574 oz BMI 29.0 BP 116/74 Blood Pressure Location Lt brachial Position Sitting Pulse 66 Intake Visit Reasons: 4 mnth follow up Intake Note: 4 month follow-up feeling good Deputy Clerk Of [address] Required: No 4Th Grade Teacher: 4Th Grade Teacher Present Accompanied by: secondary social studies teacher Allergies No Known Allergies [No Known Allergies*] Allergy (Verified 07/12/23 14:44) Medication List - Last Reconciled 10/23/23 by Morales Palacio MD acetaminophen 650 mg PO Q4H PRN aspirin 81 mg PO DAILY atorvastatin 80 mg PO BEDTIME benztropine 0.5 mg PO BID fluoxetine 10 mg PO DAILY lacosamide mg PO lamotrigine 200 mg PO BID levetiracetam 1,000 mg PO BID multivitamin 1 tab PO QAM omeprazole 20 mg PO DAILY@1600 risperidone 2 mg PO .qhs risperidone 1 mg PO .am thioridazine 25 mg PO BEDTIME HPI Comments Details: Ezequiel comes for follow-up, [facility]. Patient has no new cardiac symptoms. Denies any prolonged palpitation irregular heartbeat. Denies any chest pain. Cardiac catheterization showed nonobstructive CAD. Taking all his medications. [facility] Medical History Status post left heart catheterization Arterial hypotension Seizure Atrial fibrillation Abnormal nuclear stress test Atypical chest pain CAD (coronary artery disease) Hyperlipidemia Obesity Surgical History Stented coronary artery Hx of cardiac cath Family History Father CVD (cardiovascular disease) Mother CVD (cardiovascular disease) Social History Patient Tobacco Use Status: Never used Tobacco service: No Current occupational status: disabled Review of Systems Const Denies chills, Denies fatigue, Denies fever(s), Denies frequent falls, Denies weakness, Denies weight gain and Denies weight loss ENT Denies dizziness Card Denies chest pain, Denies leg edema, Denies lightheadedness, Denies palpitations, Denies dyspnea, Denies dyspnea on exertion, Denies orthopnea and Denies other (loss of consciousness) Resp Denies cough, Denies dyspnea and Denies dyspnea on exertion GI Denies hematochezia and Denies change in stool character Musc Denies abnormal gait, Denies muscle weakness, Denies numbness, Denies radiating pain into limb and Denies tingling Neuro Denies abnormal gait, Denies dizziness, Denies frequent falls, Denies numbness, Denies tingling and Denies weakness Endo Denies fatigue and Denies palpitations Physical Exam Vital Signs: Last Vital Signs Pulse 66 10/23/23 10:46 BP 116/74 10/23/23 10:46 BMI result Body Mass Index 29.0 Const General: cooperative, healthy appearing, comfortable and no acute distress Orientation/consciousness: patient oriented x3 Neck Neck: Yes normal visual inspection and Yes no JVD Resp Effort & Inspection: normal respiratory effort Auscultation: clear to auscultation bilaterally, no crackles, no rales, no rhonchi and no wheezes Cardio Jugular venous distension: no JVD Rate: regular rate Rhythm: regular rhythm Heart sounds: S1 normal heart sound present, S2 normal heart sound present, no murmurs and no rubs Neuro General: patient oriented x3 Extrem General: Yes normal to inspection, No no pedal edema and No calf tenderness Psych Appearance: grossly normal Mental Status: mental status grossly normal Speech and movement: Normal speech and movement present Assessment & Plan Assessment & Plan (1) CAD (coronary artery disease): Comment: ACS, December 2013. Stable since then on medical therapy Code(s): I25.10 - Atherosclerotic heart disease of [place] coronary artery without angina pectoris Category: Medical Plan: CAD with remote stenting of LAD for premature atherosclerosis and myocardial infarction. Recent cardiac catheterization showed nonobstructive CAD. Stent is patent in the LAD. Continue lifelong aspirin therapy. Continue high-intensity statin therapy with target goal LDL less than 70 mg/dL. No change in therapy at this point in time. (2) Paroxysmal atrial fibrillation: Code(s): I48.0 - Paroxysmal atrial fibrillation Category: Medical Plan: Paroxysmal atrial fibrillation without any obvious clinical recurrence. No change in therapy. Currently patient has frequent uncontrolled falls that can be changed with physical therapy or supportive mechanism as these are related to muscle spasm question seizures. He has had head and facial injury. Agree that he is high risk candidate for oral anticoagulation therapy and therefore she wou ld avoid oral anticoagulation therapy in him at this point in time. Will follow up in the clinic in 1 year's time, sooner p.r.n.. Thank you for allowing me to partake in his care Coding Level of Care Code Est Pt Level 4 (69054) Diagnoses CAD (coronary artery disease) I25.10 Paroxysmal atrial fibrillation I48.0
[2023-10-23 10:46] VITALS: BP 116/74; PULSE 66; BMI 29.0
== END 2023-10-23 11:08 | disposition home or self-care (01) ==
PROVIDERS: PCP Internal Medicine; Visit Provider Internal Medicine Cardiovascular Disease
DX: I25.10 Atherosclerotic heart disease of native coronary artery without angina pectoris (principal); I48.0 Paroxysmal atrial fibrillation
CPT/HCPCS: 99214

== ENCOUNTER → 2023-10-23 10:41 | Outpatient (BNVA) | payer MEDICARE, MEDICAID, SELFPAY | PROVIDERS: PCP Internal Medicine; Visit Provider Internal Medicine Cardiovascular Disease | DX: I25.10 Atherosclerotic heart disease of native coronary artery without angina pectoris (principal); I48.0 Paroxysmal atrial fibrillation | CPT/HCPCS: 99212 ==

== ENCOUNTER 2024-09-02 08:30 | Outpatient (REF) | payer MEDICARE, MEDICAID, SELFPAY ==
--- OUTSIDE RECORDS SUMMARY | 2024-09-02 09:03 | XMS_ITS | Clinical Summary ---
Author Organization [facility] [address] [facility] Address [address] [place] [address] Phone Care Team Providers Care Cyber Incident Responder Name Role Phone MitchblayneAfia Primary Care Provider [phone] Allergies No known active allergies Medications risperiDONE (RisperDAL) 4 mg tablet 5 Active omeprazole (PriLOSEC) [address] capsule 5 Active Tab-A-Lb 400 mcg tablet 4 Active levETIRAcetam (KEPPRA) 1,000 mg tablet 5 Active lamoTRIgine (LaMICtal) 200 mg tablet 5 Active lacosamide (VIMPAT) 50 mg tablet 5 Active atorvastatin (LIPITOR) 80 mg tablet 5 Active aspirin 81 mg chewable tablet 5 Active benztropine (COGENTIN) 0.5 mg tablet Take by mouth 2 (two) times a day. Active acetaminophen (TYLENOL 8 HOUR) 650 mg 8 hr tablet 5 Active FLUoxetine (PROzac) 10 mg capsule 5 Active magnesium oxide 250 mg magnesium tablet 5 Active erythromycin 5 mg/gram (0.5 %) ophthalmic ointment 5 Active bacitracin 500 unit/gram ointment Apply 1 Application topically 2 (two) times a day. Active Active Problems Problem Noted Date Diagnosed Date Acute non-ST elevation myocardial infarction (NS ANIKET) 08/27/2024 Atherosclerosis of coronary artery 08/27/2024 Stented coronary artery 08/27/2024 Cognitive impairment 08/27/2024 Seizures 08/27/2024 HLD (hyperlipidemia) 08/27/2024 Encounters Date Type Department Care Team Description 08/27/2024 11:00 AM EST Office Visit Gastroenterology - [address] [phone] Lela Hawthorne PA Colon cancer screening (Primary Dx) 07/27/2024 Telephone Gastroenterology - [address] [phone] Roscoe Morales MD from Last 3 Months Surgical History Surgery Date Site/Laterality Comments COLONOSCOPY 11/08/2016 5-yr recall Family History Medical History Relation Name Comments Colon cancer Neg Hx Social History Tobacco Use Types Packs/Day Years Used Date Smoking Tobacco: Former Cigarettes Smokeless Tobacco: Former Tobacco Cessation:Counseling Given: Not Answered Alcohol Use Standard Drinks/Week Comments Never 0 (1 standard drink = 0.6 oz pur e alcohol) Sex and Gender Information Value Date Recorded Sex Assigned at Not on file Legal Sex Male 8:54 PM EST Gender Identity Not on file Sexual Orientation Not on file Obstetrics History Last Filed Vital Signs Vital Sign Reading Time Taken Comments Blood Pressure - - Pulse - - Temperature - - Respiratory Rate - - Oxygen Saturation - - Inhaled Oxygen Concentration - - Weight 97.5 kg (215 lb) 08/27/2024 10:40 AM EST Height 170.2 cm (5' 7 ) 08/27/2024 10:40 AM EST Body Mass Index 33.67 08/27/2024 10:40 AM EST Plan of Treatment Upcoming Encounters Date Type Department Care Team (Late st Contact Info) Description 10/22/2024 1:[address] [facility] [address] [place] [address] Roscoe Morales MD [address] [address] Health Maintenance Due Date Last Done Comments Pneumococcal Vaccine: 50+ Years (2 of 2 - PCV) 01/09/2015 01/09/2014 Cholesterol Screening (Lipid Panel) 05/26/2022 Depression Screening 05/26/2022 HIV Screening 05/26/2022 Hepatitis C Screening 05/26/2022 Medicare Annual Wellness Visit 05/26/2022 Social Influencers of Health Screening 05/26/2022 RSV Immunization Patients 60+ Years Old (1 - Risk 60-74 years 1-dose series) 2023 COVID-19 Vaccine ( season) 2024 04/25/2023, 04/13/2022, 10/20/2021, Additional history exists Hypertension/CHF/CAD Annual BMP Blood Test 08/26/2024 Zoster Vaccines (2 of 2) 09/24/2024 07/30/2024 Colorectal Cancer Screening: Colonoscopy 11/08/2026 11/08/2016 DTaP,Tdap,and Td Vaccines (3 - Td or Tdap) 01/13/2033 01/13/2023, 02/13/2021 Pneumococcal Vaccine: Pediatrics (0 to 5 Years) and At-Risk Patients (6 to 64 Years) Aged Out 01/09/2014 No longer eligible based on patient's age to complete this topic Influenza Vaccine Completed 03/16/2024, , 08/18/2016 HIB Vaccines Aged Out No longer eligi ble based on patient's age to complete this topic HPV Vaccines Aged Out No longer eligi ble based on patient's age to complete this topic Hepatitis A Vaccines Aged Out No long er eligible based on patient's age to complete this topic Hepatitis B Vaccines Aged Out No long er eligible based on patient's age to complete this topic IPV Vaccines Aged Out No longer eligi ble based on patient's age to complete this topic MMR Vaccines Aged Out No longer eligi ble based on patient's age to complete this topic Meningococcal ACWY Vaccine Aged Out N o longer eligible based on patient's age to complete this topic Meningococcal B Vacine Aged Out No lo nger eligible based on patient's age to complete this topic RSV Immunization Patients Under 20 months Aged Out No longer eligible based on patient's age to complete this topic Varicella Vaccines Aged Out No longer eligible based on patient's age to complete this topic Procedures Procedure Name Priority Date/Time Associated Diagnosis Comments EXTERNAL COLONOSCOPY REPORT Routine 11/08/2016 1:18 PM EDT from Last 3 Months or Most Recently Relevant to Health Maintenance Results * External Colonoscopy Report (11/08/2016 1:18 PM EDT) Anatomical Region Laterality Modality Endoscopy us Historical Provider GI~PROCEDURE ORDERABLES F inal Result from Last 3 Months or Most Recently Relevant to Health Maintenance Insurance MEDICARE MEDICAID - [place] Care Teams Cyber Incident Responder Relationship Specialty Start Date End Date Afia Oh [address] [place] [address] [place] [phone] PCP - General Family Medicine 07/27/24
--- OUTSIDE RECORDS SUMMARY | 2024-09-02 09:03 | XMS_ITS | Encounter Summary ---
Author Organization [facility] Address [address] [place] [address] Care Team Providers Care Manager Of Network Name Role Phone Afia Oh Primary Care Provider [phone] Reason for Visit * Reason Comments Establish Care Has a stent placed Encounter Details Date Type Department Care Team (Late st Contact Info) Description 08/27/2024 11:00 AM EST Office Visit Gastroenterology - [address] [place] [address] Lela Hawthorne PA [address] [place] [address] [place] [address] Colon cancer screening (Primary Dx) Social History Tobacco Use Types Packs/Day Years [...] on file Sexual Orientation Not on file documented as of this encounter Last Filed Vital Signs Vital Sign Reading Time Taken Comments Blood Pressure - - Pulse - - Temperature - - Respiratory Rate - - Oxygen Saturation - - Inhaled Oxygen Concentration - - Weight 97.5 kg (215 lb) 08/27/2024 10:40 AM EST Height 170.2 cm (5' 7 ) 08/27/2024 10:40 AM EST Body Mass Index 33.67 08/27/2024 10:40 AM EST documented in this encounter Progress Notes * SELVIN Francois - 08/27/2024 11:00 AM EST CHIEF COMPLAINT: Establish Care (Has a stent placed) HPI: Ezequiel Winchester is a 58 y.o. old male who was originally referred to us by Afia Oh now presents to the gastroenterology department today for pre- colonoscopy evaluation. Presents with residential caregiver. Denies GI concerns Denies hematochezia, abdominal pain, weight loss, or dysphagia. Takes omeprazole 20mg daily for heartburn, stable no concerns. Last colon 2016, recommended 5-year recall. Prep was adequate. ROS: GENERAL: No malaise, significant weight loss or fever HEENT: No changes in hearing or vision, nose bleeds or swallowing problems NECK: No lumps, goiter, pain or significant neck swelling RESPIRATORY: No cough, wheezing or shortness of breath CARDIOVASCULAR: No chest pain, leg swelling or palpitations GI: see above MUSCULOSKELETAL: No joint pain or swelling, back pain, or muscle pain. SKIN: No lesions, rash or itching The remainder of the review of systems is reviewed and negative. PROBLEM LIST: Patient Active Problem List Diagnosis Acute non-ST elevation myocardial infarction (NSTEMI) (CMS/HCC) Atherosclerosis of coronary artery Stented coronary artery Cognitive impairment Seizures (CMS/[facility]) HLD (hyperlipidemia) PAST SURGICAL HISTORY: Past Surgical History: Procedure Laterality Date COLONOSCOPY 11/08/2016 5-yr recall SOCIAL HISTORY: Social History Tobacco Use Smoking status: Former Types: Cigarettes Smokeless tobacco: Former Substance Use Topics Alcohol use: Never FAMILY HISTORY: Family History Problem Relation Name Age of Onset Colon cancer Neg Hx ACTIVE MEDICATIONS: Current Outpatient Medications Medication Sig Dispense Refill acetaminophen (TYLENOL 8 HOUR) 650 mg 8 hr tablet aspirin 81 mg chewable tablet atorvastatin (LIPITOR) 80 mg tablet bacitracin 500 unit/gram ointment Apply 1 Application topically 2 (two) times a day. benztropine (COGENTIN) 0.5 mg tablet Take by mouth 2 (two) times a day. erythromycin 5 mg/gram (0.5 %) ophthalmic ointment FLUoxetine (PROzac) 10 mg capsule lacosamide (VIMPAT) 50 mg tablet lamoTRIgine (LaMICtal) 200 mg tablet levETIRAcetam (KEPPRA) 1,000 mg tablet magnesium oxide 250 mg magnesium tablet omeprazole (PriLOSEC) [address] capsule risperiDONE (RisperDAL) 4 mg tablet Tab-A-Lb 400 mcg tablet No current facility-administered medications for this visit. ALLERGIES: No Known Allergies PHYSICAL EXAM: Visit Vitals Ht 1.702 m (67 ) Wt 97.5 kg (215 lb) BMI 33.67 kg/m?? Smoking Status Former BSA 2.09 m?? APPEARANCE: Alert and in no acute distress EYES: PERRLA, conjunctiva and sclera normal. MOUTH/THROAT: no erythema or exudates NECK: Neck supple, no adenopathy HEART: RRR with normal S1 and S2, no murmurs appreciated LUNG: clear to auscultation LYMPH NODES: grossly normal ABDOMEN: soft non tender, no ascites, guarding, or rebound, no organomegaly. EXTREMITIES: Extremities warm and well perfused SKIN: Skin color, texture, turgor normal. NEURO: Awake, alert and oriented. Normal ROM Assessment/Plan Assessment & Plan Colon cancer screening 5-year recall recommended, I suspect due to preparation. We reviewed the prep instructions and a low-residue diet in depth. Book colonoscopy. Discussed with patient indications for procedure as well as risks of bleeding, infection, risk of perforation and reaction to anesthesia. Patient is aware of risk of missed lesions. Indications including screening for potential pre- malignant lesions and attempting to remove them. Patient understands and would like to proceed. Alternatives to endoscopic evaluation discussed. Benefit of procedure for screening diagnostic and therapeutic purposes discussed. The patient acknowledges risks, benefits and alternatives and all questions are answered. Patient is to follow up after the procedure for biopsy results General: Patient aware needs a ride home Nor to have liquids for at least three hours before procedure. Follow up for any future GI concerns as needed. Gastroenterology and Hepatology Practice [facility] [email or web address] [phone] [address] [facility]. [address] [place] [id number] SELVIN Francois documented in this encounter Plan of Treatment Upcoming Encounters Date Type Department Care Team (Late st Contact Info) Description 10/22/2024 1:30 PM EDT Appointment [facility] [address] [place] [phone] Roscoe Morales MD [address] [facility] [address] [place] [address] documented as of this encounter Visit Diagnoses Diagnosis Colon cancer screening- Primary Special screening for malignant neoplasms, colon documented in this encounter Historical Medications * This list may reflect changes made after this encounter. bacitracin 500 unit/gram ointment Apply 1 Application topically 2 (two) times a day. erythromycin 5 mg/gram (0.5 %) ophthalmic ointment 07/18/2024 magnesium oxide 250 mg magnesium tablet 07/02/2024 FLUoxetine (PROzac) 10 mg capsule 08/26/2024 acetaminophen (TYLENOL 8 HOUR) 650 mg 8 hr tablet 08/14/2024 benztropine (COGENTIN) 0.5 mg tablet Take by mouth 2 (two) times a day. aspirin 81 mg chewable tablet 08/14/2024 atorvastatin (LIPITOR) 80 mg tablet 08/04/2024 lacosamide (VIMPAT) 50 mg tablet 07/24/2024 lamoTRIgine (LaMICtal) 200 mg tablet 07/22/2024 levETIRAcetam (KEPPRA) 1,000 mg tablet 08/24/2024 Tab-A-Lb 400 mcg tablet 04/15/2024 omeprazole (PriLOSEC) [address] capsule 08/04/2024 risperiDONE (RisperDAL) 4 mg tablet 08/04/2024 added in this encounter Care Teams Manager Of Network Relationship Specialty Start Date End Date Afia Oh [address] [place] [address] [place] [phone] PCP - General Family Medicine 07/27/24 documented as of this encounter
--- OUTSIDE RECORDS SUMMARY | 2024-09-02 09:03 | XMS_ITS ---
Author Organization [facility] Address [address] [facility] [address] Care Team Providers Care Molder Pipe Covering Name Role Phone Eula Ellison Primary Care Provider Cristel Solorzano Unavailable [phone] REASON FOR VISIT sooner appt Encounters Encounter Location Date Provider Diagnosis [address] [place] [address] 07/01/2024 Cristel Johnson Plan Of Treatment Next Appt Details Provider Name:Cristel Johnson , 11/20/2024 10:15:00 AM, [address] [facility], [place], [address], Progress Notes * Ezequiel GONZALEZDOB:1965 (58 yo M)Acc No.[id number]:07/01/2024 Patient:?Ezequiel GONZALEZ :1965???Age:58 Y???Sex:Male Address:[address] [place] [address], [address] * true * Date:? Generated for Printi ng/Faxing/eTransmitting on:?09/02/2024 09:02 AM EDT
--- OUTSIDE RECORDS SUMMARY | 2024-09-02 09:03 | XMS_ITS | Patient Health Record ---
Author Organization [facility] Address [address] [place] [address] Care Team Providers Care Shot Dropper Name Role Phone Eula Ellison Primary Care Provider Cristel Solorzano Unavailable [phone] Allergies No Known Allergies Reason For Referral No Information Medications Medication SIG (Take, Route, Frequency, Duration) Notes Start Date End Date Status Thioridazine HCl 50 MG Orally Not-Taking Ciclopirox Olamine 0.77 % 1 application to affected area Externally Twice a day prn for 30 Not-Taking Ciclopirox Olamine 0.77 % 1 application to affected area Externally to feet Once a day for 30 days Active RisperDAL Not-Taking Bacitracin Active Multivitamin Active FLUoxetine HCl 10 MG 1 tablet Orally Onc e a day Active Keppra 1000 MG Orally every 12 hrs Not-Taking risperiDONE 4 MG 1 tablet Orally Once a day Active Prozac 10mg Not-Taki ng levETIRAcetam 1000 MG 1 tablet Orally Tw ice a day Active PriLOSEC 20 MG 1 capsule Orally Onc e a day Not-Taking Cogentin 0.5 MG Orally Once a day Not-Taking Toprol XL 25 MG 1 tablet Orally Once a day Not-Taking Lacosamide 50 MG 1 tablet Orally Twic e a day Active Eliquis Active Magnesium Active PriLOSEC Active PROzac Not-Taking Zocor Not-Taking Aspirin Active Atorvastatin Calcium 80 MG 1 tablet Oral ly Once a day Active LaMICtal 100 MG Orally Twice a day Not-Taking zzzCompression Stockings 20-30mm Hg . . . for . Active Tylenol 650mg prn Active lamoTRIgine 200 MG 1 tablet Orally twic e daily Active Benztropine Mesylate 0.5 MG as directed Orally Once a day Active Brilinta 90 MG 1 tablet Orally Twic e a day Not-Taking Ciclopirox Olamine N ot-Taking AmLactin 12 % 1 application to affected area Externally Twice a day for 30 days 08/17/2013 Not-Taking Social History Tobacco Use: Social History Observation Description Date Details (start date - stop date) Never Smoker NA - NA Tobacco use other than smoking: Question Answer Notes Are you an other tobacco user? No Tobacco Control (Standard) Question Answer Notes Tobacco use: Nonsmoker Additional Findings: Tobacco non-user Current no nsmoker AUDIT-C (Standard) Question Answer Notes Did you have a drink containing alcohol in the p ast year? No Points 0 Interpretation Negative Problems Problem Type SNOMED Code ICD Code Onset Dates Problem Status W/U Status Risk Notes Problem Localized, primary osteoarthritis of the ankle and/or foot (289712619) Primary osteoarthritis, left ankle and foot (M19.072) Active confirmed Problem Non-pressure ulcer lower limb (725707255) Non-pressure chronic ulcer of other part of left foot limited to breakdown of skin (L97.521) Active confirmed Problem 928723404648695 Hallux valgus (acquired), left foot (M20.12) Active confirmed Problem 707384787 Venous insufficiency of both lower extremities (I87.2) Active confirmed Problem Atherosclerosis of [place] artery of both lower extremities, with unspecified presence of clinical manifestation (I70.203) Active confirmed Q7(A), Q8(2B), Q9(1B,2C) Problem Ulcer of toe of right foot (disorder) (5851793446826118 1) Skin ulcer of toe of right foot, limited to breakdown of skin (L97.511) Active confirmed Response to treatment Problem Ulcer of toe of left foot (disorder) (8126152281873226 2) Skin ulcer of toe of left foot, limited to breakdown of skin (L97.521) Active confirmed Response to treatment Nonapplicable Vital Signs Blood pressure diastolic 70 mm Hg 08/21/2024 Height 5ft 8in in 08/21/2024 Blood pressure systolic 119 mm Hg 08/21/2024 Weight 211 lbs 08/21/2024 BMI 32.08 kg/m2 08/21/2024 Procedures Procedure Date Ordered Date Performed Result Body Sit e 65436-SFSOITY NAIL, 6 OR MORE 12/11/2023 N/A 18051-RGIQHAL NAIL, 6 OR MORE 05/05/2024 N/A 75862- Debride <25 sq cm 05/05/2024 N/A 85701-Ovxa. Subungual Hematoma 05/05/2024 N/A 10418-XJHTRYO NAIL, 6 OR MORE 08/21/2024 N/A 76240-BRWD SKIN LESIONS, OVER 4 08/21/2024 N/A Encounters Encounter Location Date Provider Diagnosis [address] [address] 12/11/2023 Cristel Black Tinea unguium B35.1 ; Pain in right toe(s) M79.674 and Pain in left toe(s) M79.[address] [address] 05/05/2024 Cristel Black Tinea unguium B35.1 ; Pain in right toe(s) M79.674 ; Pain in left toe(s) M79.675 ; Skin ulcer of toe of left foot, limited to breakdown of skin L97.521 and Subungual hematoma of right foot, initial encounter S90.221A [address] [address] 08/21/2024 Cristel Black Atherosclerosis of [place] artery of both lower extremities, with unspecified presence of clinical manifestation I70.203 ; Tinea unguium B35.1 ; Pain in right toe(s) M79.674 and Pain in left toe(s) M79.[address] [address] 07/01/2024 Cristel Black Assessments Encounter Date Diagnosis (ICD Code) Assessment Notes Treatment Notes Treatment Clinical Notes Section Notes 12/11/2023 Tinea unguium (ICD-10 - B35.1) 12/11/2023 Pain in right toe(s) (ICD-10 - M79.674) 05/05/2024 Tinea unguium (ICD-10 - B35.1) 08/21/2024 Tinea unguium (ICD-10 - B35.1) 08/21/2024 Atherosclerosis of [place] artery of both lower extremities, with unspecified presence of clinical manifestation (ICD-10 - I70.203) Q7(A), Q8(2B), Q9(1B,2C) 08/21/2024 Pain in right toe(s) (ICD-10 - M79.674) 05/05/2024 Pain in right toe(s) (ICD-10 - M79.674) 12/11/2023 Pain in left toe(s) (ICD-10 - M79.675) 05/05/2024 Pain in left toe(s) (ICD-10 - M79.675) 08/21/2024 Pain in left toe(s) (ICD-10 - M79.675) 05/05/2024 Skin ulcer of toe of left foot, limited to breakdown of skin (ICD-10 - L97.521) Response to treatment Nonapplicable Patient Educated with: WOUND CARE INSTRUCTIONS. pdf (WOUND CARE INSTRUCTIONS. pdf) 05/05/2024 Subungual hematoma of right foot, initial encounter (ICD-10 - S90.221A) 05/05/2024 Other Plan Of Treatment Pending Test Test Name Order Date X ray : Foot, left 2V 10/13/2012 X ray : Foot, left 3V 10/07/2013 25517-UZTKAXN NAIL, 6 OR MORE 11/11/2013 08903-ITQWQKV NAIL, 6 OR MORE 02/10/2014 38619-NYLXPXM NAIL, 6 OR MORE 03/10/2014 80228-UCTGGFY NAIL, 6 OR MORE 06/09/2014 45574-GXFVELO NAIL, 6 OR MORE 11/04/2017 86723-LYQIFSS NAIL, 6 OR MORE 02/03/2018 56950-YCNKUEK NAIL, 6 OR MORE 05/12/2018 30475-HJJUMFS NAIL, 6 OR MORE 08/14/2018 91249-OLSZKSB NAIL, 6 OR MORE 11/13/2018 54706-EVPERJW NAIL, 6 OR MORE 02/26/2019 60182-SLYXIGO NAIL, 6 OR MORE 06/04/2019 00698-TZCUCZJ NAIL, 6 OR MORE 01/01/2013 64397-JLIJTZS NAIL, 6 OR MORE 04/02/2013 44142-OKGOKOQ NAIL, 6 OR MORE 08/17/2013 59537-UTVWDGD NAIL, 6 OR MORE 05/14/2011 65695-DCYPNHE NAIL, 6 OR MORE 08/20/2011 20219-KNNJBRP NAIL, 6 OR MORE 02/14/2012 11918-NCCYQGG NAIL, 6 OR MORE 05/19/2012 39507-VNLPRQG NAIL, 6 OR MORE 09/10/2012 01427-GRPRCKI NAIL, 6 OR MORE 10/13/2012 68768-ODEIPEZ NAIL, 6 OR MORE 03/26/2016 33997-QZDPZRQ NAIL, 6 OR MORE 07/02/2016 46479-KKUKIGT NAIL, 6 OR MORE 10/01/2016 56507-KSEKASY NAIL, 6 OR MORE 01/28/2017 74181-UBFSBAN NAIL, 6 OR MORE 05/03/2017 53398-HQBIDHS NAIL, 6 OR MORE 08/05/2017 59487-DPGTHBK NAIL, 6 OR MORE 09/08/2014 61465-FUDUNQZ NAIL, 6 OR MORE 09/01/2019 47387-ATINLBX NAIL, 6 OR MORE 12/23/2019 47914-NFQKISZ NAIL, 6 OR MORE 03/23/2020 19261-WWAPLRO NAIL, 6 OR MORE 09/14/2020 92455-CJXFMRM NAIL, 6 OR MORE 10/27/2021 45644-EGOYOHP NAIL, 6 OR MORE 01/19/2022 32989-GLEDWMU NAIL, 6 OR MORE 04/13/2022 91262-UWMWVND NAIL, 6 OR MORE 07/20/2022 06721-FWHZZAC NAIL, 6 OR MORE 09/28/2022 11505-KRVJFVW NAIL, 6 OR MORE 12/07/2022 80077-FSPANHB NAIL, 6 OR MORE 03/13/2023 88711-JFHBWHU NAIL, 6 OR MORE 08/28/2023 79529-JOKQEFQ NAIL, 6 OR MORE 12/11/2023 52269-OSKQWQR NAIL, 6 OR MORE 05/05/2024 83482-NWRXARC NAIL, 6 OR MORE 08/21/2024 17092-Mfytiuhe Plate 08/28/2023 45417-Ofdvucyx Plate 12/07/2022 65354-Uroiqnbj Plate 09/28/2022 08293-Lvisdino Plate 02/14/2012 45032-Qbertfpk Plate 10/27/2021 11533-Ouvafnqk Plate 03/23/2020 09512-Mpuuuoqc Plate 09/08/2014 15588-Yqlaqzjb Plate 05/14/2011 23023-Fztggqkh Plate 08/17/2013 95311-Ztxpkxfy Plate 04/02/2013 11828-Qgtrqknm Plate 01/01/2013 67597-Hcszjkfu Plate 06/09/2014 74249-Hlhetnzo Plate 03/10/2014 75085-Nezfsvft Plate 02/10/2014 33539-Dhjrogzy Plate Each Additional 82673-Skyduvyi Plate Each Additional 04/2013 51295-Ddzxqhgc Plate Each Additional 03/2013 66126-Jrctukij Plate Each Additional 84110-Sptiktlk Plate Each Additional 40407-Wkwhduwf Plate Each Additional 11/2021 03015- Debride <25 sq cm 08/05/2017 41547- Debride <25 sq cm 05/05/2024 19186- Debride <25 sq cm 08/20/2011 68367- Debride <25 sq cm 02/14/2012 92480- Debride <25 sq cm 09/01/2019 49571-IBSC SKIN LESIONS, OVER 4 08/21/19 75595-Jxbg. Subungual Hematoma Next Appt Details Provider Name:Cristel Pena Alex , 11/20/2024 10:15:00 AM, [address] [facility], [place], [address], Insurance Providers Payer Name Payer Address Payer Phone Subscriber Number Group Number Insured Name Patient Relationship to Insured Coverage Start Date Coverage End Date Medicare National Govt [facility] [address] [facility] [place] [address] [id number] Ezequiel Winchester Self - patient is the insured Medical (General) History Medical History History ICD Code psychiatric disorder nerve disease epilepsy Surgical History Surgery Date(Month/Year) ankle surgery 1999 stint placed in cortinary artery 01/10/20 14 Hospitalization History Reason Date(Month/Year) [facility] irregular heartbeat 09/2021
--- OUTSIDE RECORDS SUMMARY | 2024-09-02 09:03 | XMS_ITS ---
Author Organization [facility] Address [address] [place] [address] Care Team Providers Care Manager Respiratory Name Role Phone Eula Ellison Primary Care Provider Cristel Solorzano [phone] Encounters Encounter Location Date Provider Diagnosis [address] [address] 09/01/2024 Cristel Johnson Plan Of Treatment Next Appt Details Provider Name:Cristel Johnson , 11/20/2024 10:15:00 AM, [address] [place] [address], [phone], Progress Notes * Ezequiel GONZALEZDOB:1965 (58 yo M)Acc No.[id number]:09/01/2024 Progress Note Patient:?Ezequiel GONZALEZ Provider:?Cristel Johnson DPM :1965???Age:58 Y???Sex:Male Yong e:09/01/2024 Address:[address] [place], [place] [id number] Pcp:Eula Ellison Subjective: * Chief Complaints: * ??? * Medical History:? Objective: * Vitals:? Assessment: Plan: * Treatment: * Images: * The named appointment provid er may or may not be the originator of this progress note, and it is not deemed complete until electronically signed by the appointment provider. Sign off status: Pending * Provider:?Cristel Johnson DPM Date:?2024 Generated for Printi ng/Faxing/eTransmitting on:?09/02/2024 09:03 AM EDT
--- OUTSIDE RECORDS SUMMARY | 2024-09-02 09:04 | XMS_ITS ---
Author Organization [facility] Address [address] [place] [address] Care Team Providers Care Burlap Worker Name Role Phone Eula Ellison Primary Care Provider Cristel Solorzano Unavailable [phone] Allergies No Known Allergies REASON FOR VISIT At Risk Footcare, Painful Nail(s) aggravated by shoes and causing difficulty standing/walking. Medications Medication SIG (Take, Route, Frequency, Duration) Notes Start Date End Date Status Multivitamin Active FLUoxetine HCl 10 MG 1 tablet Orally Onc e a day Active risperiDONE 4 MG 1 tablet Orally Once a day Active levETIRAcetam 1000 MG 1 tablet Orally Tw ice a day Active Brilinta 90 MG 1 tablet Orally Twic e a day Not-Taking PROzac Not-Taking Zocor Not-Taking LaMICtal 100 MG Orally Twice a day Not-Taking Ciclopirox Olamine N ot-Taking AmLactin 12 % 1 application to affected area Externally Twice a day for 30 days 08/17/2013 Not-Taking Keppra 1000 MG Orally every 12 hrs Not-Taking Prozac 10mg Not-Taki ng PriLOSEC 20 MG 1 capsule Orally Onc e a day Not-Taking Cogentin 0.5 MG Orally Once a day Not-Taking Toprol XL 25 MG 1 tablet Orally Once a day Not-Taking Thioridazine HCl 50 MG Orally Not-Taking Ciclopirox Olamine 0.77 % 1 application to affected area Externally Twice a day prn for 30 Not-Taking Ciclopirox Olamine 0.77 % 1 application to affected area Externally to feet Once a day for 30 days Active RisperDAL Not-Taking Bacitracin Active Aspirin Active Atorvastatin Calcium 80 MG 1 tablet Oral ly Once a day Active zzzCompression Stockings 20-30mm Hg . . . for . Active Tylenol 650mg prn Active Benztropine Mesylate 0.5 MG as directed Orally Once a day Active lamoTRIgine 200 MG 1 tablet Orally twic e daily Active Lacosamide 50 MG 1 tablet Orally Twic e a day Active Eliquis Active Magnesium Active PriLOSEC Active Social History Tobacco Use: Social History Observation [...] Problem Status W/U Status Risk Notes Problem Atherosclerosis of [place] artery of both lower extremities, with unspecified presence of clinical manifestation (I70.203) Active confirmed Q7(A), Q8(2B), Q9(1B,2C) Vital Signs Height 5ft 8in in 08/21/2024 Weight 211 lbs 08/21/2024 BMI 32.08 kg/m2 08/21/2024 Blood pressure systolic 119 mm Hg 08/21/19 25 Blood pressure diastolic 70 mm Hg 025 Procedures Procedure Date Ordered Date Performed Result Body Sit e 96560-MSQWARB NAIL, 6 OR MORE 08/21/2024 N/A 99718-QSIZ SKIN LESIONS, OVER 4 08/21/2024 N/A Encounters Encounter Location Date Provider Diagnosis [facility] [address] [address] 08/21/2024 Cristel Black Atherosclerosis of [place] artery of both lower extremities, with unspecified presence of clinical manifestation I70.203 ; Tinea unguium B35.1 ; Pain in right toe(s) M79.674 and Pain in left toe(s) M79.675 Assessments Encounter Date Diagnosis (ICD Code) Assessment Notes Treatment Notes Treatment Clinical Notes Section Notes 08/21/2024 Atherosclerosis of [place] artery of both lower extremities, with unspecified presence of clinical manifestation (ICD-10 - I70.203) Q7(A), Q8(2B), Q9(1B,2C) 08/21/2024 Tinea unguium (ICD-10 - B35.1) 08/21/2024 Pain in right toe(s) (ICD-10 - M79.674) 08/21/2024 Pain in left toe(s) (ICD-10 - M79.675) Plan Of Treatment Pending Test Test Name Order Date 68523-GMXYODC NAIL, 6 OR MORE 08/21/2024 57383-IRRN SKIN LESIONS, OVER 4 08/21/19 Next Appt Details Follow Up: prn, Reason: Provider Name:Cristel Johnson , 11/20/2024 10:15:00 AM, [address] [facility], [place], [address], Procedure Notes * Category Sub-Category Detail Notes Debride Nail 6-10 Nail debridement Due to the cl inical pathology outlined in the exam findings, performance of this nail treatment is medically necessary as its management by an unskilled/untrained nonprofessional would put this patients foot and overall health at risk. Therefore, debridement to affected nail(s), as described in exam ( _TA, T3, T4, T5, T6, T7, T8, T9, ), was performed exclusively by the physician of record to reduce/remove overall nail length, girth, thickness, subungual debris, and necrotic tissue, by manual and/or electrical means through the use of a nail nipper and/or dremel-type grinder dresser, to a more viable healthy nail plate or bed tissue 6-10 nails in total. Silver nitrate was used for any petechial bleeding as necessary. Definitive antifungal treatment options, both pharmaceutical and surgical, have been reviewed and discussed with the patient. The patient solely prefers the use of intermittent/as needed professional debridement services for their nail condition and understands the need for additional periodic treatments to maintain effectiveness in symptomatic relief - 00126 Keratoma Treatment Parring or Cutting o f Benign Hyperkeratotic Lesion(s) , (-57) More than 4 Lesions - Due to the at risk nature of the patients medical condition as documented in the exam findings, performance of this keratoderma treatment is medically necessary as its management by an unskilled/untrained nonprofessional would put this patients foot and overall health at risk. Therefore, the benign hyperkeratotic lesions, (6 ) in total, locations as stated and described in the exam ( T1, T2, SUB MTH (s), 1, B/L, Plantar Heel(s), B/L ), were pared, and/or cut utilizing a sterile 15 blade, tissue nippers, and/or power dremel instrumentation by the physician of record - [id number] Progress Notes * Ezequiel GONZALEZDOB:1965 (58 yo M)Acc No.[id number]:08/21/2024 Progress Note Patient:?Ezequiel GONZALEZ Provider:?Cristel Johnson DPM :1965???Age:58 Y???Sex:Male Yong e:08/21/2024 Address:[address] [place], [place] [id number] Pcp:Eula Ellison Subjective: * Chief Complaints: * ???At Risk FootcarePainful N ail(s) aggravated by shoes and causing difficulty standing/walking. * HPI: ???At Risk footcare:?Pt States Last PCP Visit:?Date?07/15/2024 * Medical History:? * Surgical History:?ankle surg glenn 2000stint placed in cortinary artery 01/09/2014 * Hospitalization/Major Diagno stic Procedure:?[facility] irregular heartbeat 09/2021 * Family History:?Mother: dece ased, oot problems, diagnosed with Unspecified essential hypertension, Unspecified heart disease.?Father: , diagnosed with Unspecified heart disease.? * Social History:?Tobacco Use:?Tobacco use other than smoking?Are you an other tobacco user??No ?Tobacco Control (Standard)?Tobacco use:?Nonsmoker ?Additional Findings: Tobacco non-user?Current nonsmoker ???Drugs/Alcohol:?Drugs?Have you used drugs other than those for medical reasons in the past 12 months??No ???Miscellaneous:?Caffeine: yes, frequency:, 1-2 cups per day. ?Children: no. ?Exercise: reading. ?Marital status: single. ?Occupation: unemployed. ???Drug/Alcohol:?AUDIT-C (Standard)?Did you have a drink containing alcohol in the past year??No ?Points?0 ?Interpretation?Negative * Medications:?TakinglevETIRAc etam 1000 MG Tablet 1 tablet Orally Twice a day FLUoxetine HCl 10 MG Tablet 1 tablet Orally Once a day risperiDONE 4 MG Tablet 1 tablet Orally Once a day Multivitamin Magnesium PriLOSEC Lacosamide 50 MG Tablet 1 tablet Orally Twice a day Eliquis lamoTRIgine 200 MG Tablet 1 tablet Orally twice daily Benztropine Mesylate 0.5 MG Tablet as directed Orally Once a day zzzCompression Stockings 20-30mm Hg 1 pair closed toe- knee high . . . Tylenol 650mg prn Aspirin Atorvastatin Calcium 80 MG Tablet 1 tablet Orally Once a day Bacitracin Ciclopirox Olamine 0.77 % Cream 1 application to affected area Externally to feet Once a day Taking levETIRAcetam 1000 MG Tablet 1 tablet Orally Twice a day Taking FLUoxetine HCl 10 MG Tablet 1 tablet Orally Once a day Taking risperiDONE 4 MG Tablet 1 tablet Orally Once a day Taking Multivitamin Taking Magnesium Taking PriLOSEC Taking Lacosamide 50 MG Tablet 1 tablet Orally Twice a day Taking Eliquis Taking lamoTRIgine 200 MG Tablet 1 tablet Orally twice daily Taking Benztropine Mesylate 0.5 MG Tablet as directed Orally Once a day Taking zzzCompression Stockings 20-30mm Hg 1 pair closed toe- knee high . . . Taking Tylenol 650mg prn Taking Aspirin Taking Atorvastatin Calcium 80 MG Tablet 1 tablet Orally Once a day Taking Bacitracin Taking Ciclopirox Olamine 0.77 % Cream 1 application to affected area Externally to feet Once a day Not-Taking/PRNRisperDAL Thioridazine HCl 50 MG Tablet Orally Ciclopirox Olamine 0.77 % Cream 1 application to affected area Externally Twice a day prn Cogentin 0.5 MG Tablet Orally Once a day Toprol XL 25 MG Tablet Extended Release 24 Hour 1 tablet Orally Once a day Prozac 10mg PriLOSEC 20 MG Capsule Delayed Release 1 capsule Orally Once a day Keppra 1000 MG Tablet Orally every 12 hrs LaMICtal 100 MG Tablet Orally Twice a day PROzac Zocor Ciclopirox Olamine AmLactin 12 % Cream 1 application to affected area Externally Twice a day Brilinta 90 MG Tablet 1 tablet Orally Twice a day Medication List reviewed and reconciled with the patientNot-Taking/PRN RisperDAL Not-Taking/PRN Thioridazine HCl 50 MG Tablet Orally Not-Taking/PRN Ciclopirox Olamine 0.77 % Cream 1 application to affected area Externally Twice a day prn Not-Taking/PRN Cogentin 0.5 MG Tablet Orally Once a day Not-Taking/PRN Toprol XL 25 MG Tablet Extended Release 24 Hour 1 tablet Orally Once a day Not-Taking/PRN Prozac 10mg Not-Taking/PRN PriLOSEC 20 MG Capsule Delayed Release 1 capsule Orally Once a day Not-Taking/PRN Keppra 1000 MG Tablet Orally every 12 hrs Not-Taking/PRN LaMICtal 100 MG Tablet Orally Twice a day Not-Taking/PRN PROzac Not-Taking/PRN Zocor Not-Taking/PRN Ciclopirox Olamine Not-Taking/PRN AmLactin 12 % Cream 1 application to affected area Externally Twice a day Not-Taking/PRN Brilinta 90 MG Tablet 1 tablet Orally Twice a day Medication List reviewed and reconciled with the patient * Allergies:?N.K.D.A.yes[Aller gies Verified] Objective: * Vitals:?Ht: 5ft 8in, Wt:211, BMI:32.08, Shoe size: 11, BP:119/70mm Hg, Ht-cm: 172.72 cm, Wt-k.71 kg. * Examination: ???General Examination: ?GENERAL APPEARANCE:?Reveals a pleasant, alert, well nourished, well- developed, well hydrated individual, who demonstrates proper attention to hygiene/body habitus, and is in no acute distress, Pt serves as own historian for office visit today, Pt accompanied by, TRAM DRIVER.?ORIENTED:?person, place, and time.?Vascular: ?DP PULSES (B):? 0/4, B/L.?PT PULSES (B):? 0/4, B/L.?CAPILLARY FILL TIME:? delayed, all digits, B/L.?TROPHIC CONDITION-TEXTURE/ELASTICITY/TURGOR/HAIR GROWTH (B):? decreased, fragile, thin, shiny skin, with sparse to absent hair growth, B/L.?TEMPERTURE GRADIENT (C):? decreased, cool to cool, proximal to distal, B/L.?PIGMENTATION:?, hemosiderin deposition B/L.?EDEMA (C):?, 1/4, B/L.?CLAUDICATION (C):?denies, B/L.?REST PAIN:?denies, B/L.?PARESTHESIA (C):?absent, B/L.?BURNING (C):?absent, B/L.?Nails: ?NAILS are:? Elongated, overgrown, dystrophic, lytic, greater than 3mm thick, discolored and friable with crumbly malodorous subungual debris, with pain on palpation,TA, T3, T4, T5, T6, T7, T8, T9.?Dermatologic: ?SKIN FINDINGS:?Skin exam reveals Keratotic lesion(s) located at, T1, T2, SUB MTH (s), 1, B/L, Plantar Heel(s), B/L.?Orthopedic: ?MUSCLE STRENGTH:?5/5 all groups in a symmetrical fashion, B/L.?Neurological: ?SENSORY:?Neurological exam reveals intact sensorium, pain sensation normal, vibration sensation intact, pinprick sensation is normal in the lower extremities, Pt denies, anesthesia, burning, paresthesia, tingling, B/L.? Assessment: * Assessment: 1.?Tinea unguium - B35.1???2 .?Atherosclerosis of [place] artery of both lower extremities, with unspecified presence of clinical manifestation - I70.203 (Primary)???Notes :Q7(A), Q8(2B), Q9(1B,2C)???3.?Pain in right toe(s) - M79.674???4.?Pain in left toe(s) - M79.675??? Plan: * Treatment: 2.?Tinea unguium?Procedure: [id number] NAIL, 6 OR MORE * Procedures:?Debride Nail 6-10:?Nail debridement?Due to the clinical pathology outlined in the exam findings, performance of this nail treatment is medically necessary as its management by an unskilled/untrained nonprofessional would put this patients foot and overall health at risk. Therefore, debridement to affected nail(s), as described in exam ( _TA, T3, T4, T5, T6, T7, T8, T9, ), was performed exclusively by the physician of record to reduce/remove overall nail length, girth, thickness, subungual debris, and necrotic tissue, by manual and/or electrical means through the use of a nail nipper and/or dremel-type grinder dresser, to a more viable healthy nail plate or bed tissue 6-10 nails in total. Silver nitrate was used for any petechial bleeding as necessary. Definitive antifungal treatment options, both pharmaceutical and surgical, have been reviewed and discussed with the patient. The patient solely prefers the use of intermittent/as needed professional debridement services for their nail condition and understands the need for additional periodic treatments to maintain effectiveness in symptomatic relief - 99073.?Keratoma Treatment:?Parring or Cutting of Benign Hyperkeratotic Lesion(s)?, (-57) More than 4 Lesions - Due to the at risk nature of the patients medical condition as documented in the exam findings, performance of this keratoderma treatment is medically necessary as its management by an unskilled/untrained nonprofessional would put this patients foot and overall health at risk. Therefore, the benign hyperkeratotic lesions, (6 ) in total, locations as stated and described in the exam ( T1, T2, SUB MTH (s), 1, B/L, Plantar Heel(s), B/L ), were pared, and/or cut utilizing a sterile 15 blade, tissue nippers, and/or power dremel instrumentation by the physician of record - 05727.? * Procedure Codes:?65198 DEBRI DE NAIL, 6 OR MORE, Modifiers: XS 69360 TRIM SKIN LESIONS, OVER 4, Modifiers: Q8 * Preventive Medicine:? ??Screening/Special Tests:?Fall Risk?Screening:?No falls in the past year ?FALLS: Screening for Future Fall Risk?Have you had any falls with injury in the past year??No * Follow Up:?prn * Images: * Sign off status: Completed true * Provider:?Cristel Johnson DPM Date:?2024 Generated for Juwan eagle/Apoorva/Selina on:?09/02/2024 09:03 AM EDT History and Physical Notes * HPI (History of Present Illness) Category Sub-Category Detail Notes Category Not es At Risk footcare Pt States Last PCP Visit: Date: Examination Category Sub-Category Detail Notes Category Not es Neurological SENSORY: Neurological exa m reveals intact sensorium, pain sensation normal, vibration sensation intact, pinprick sensation is normal in the lower extremities, Pt denies, anesthesia, burning, paresthesia, tingling, B/L Dermatologic SKIN FINDINGS: Skin exam reveal s Keratotic lesion(s) located at, T1, T2, SUB MTH (s), 1, B/L, Plantar Heel(s), B/L Orthopedic MUSCLE STRENGTH: 5/5 all groups in a symmetrical fashion, B/L General Examination GENERAL APPEARANCE: Reveals a pleasant, alert, well nourished, well-developed, well hydrated individual, who demonstrates proper attention to hygiene/body habitus, and is in no acute distress, Pt serves as own historian for office visit today, Pt accompanied by, TRAM DRIVER ORIENTED: person, place, and t wilfrido Vascular DP PULSES (B): 0/4, B/L PT PULSES (B): 0/4, B/L CAPILLARY FILL TIME: delayed, all digits , B/L TEMPERTURE GRADIENT (C): decreased, cool to cool, proximal to distal, B/L TROPHIC CONDITION-TEXTURE/ELASTICITY/TURGOR/HAIR GROWTH (B): decreased, fragile, thin, shiny skin, wi th sparse to absent hair growth, B/L EDEMA (C): , 1/4, B/L CLAUDICATION (C): denies, B/L REST PAIN: denies, B/L PIGMENTATION: , hemosiderin deposi tion B/L PARESTHESIA (C): absent, B/L BURNING (C): absent, B/L Nails NAILS are: Elongated, overg rown, dystrophic, lytic, greater than 3mm thick, discolored and friable with crumbly malodorous subungual debris, with pain on palpation,TA, T3, T4, T5, T6, T7, T8, T9
[2024-09-02 10:43] LABS: Syphilis Screen Nonreactive (Nonreactive)
[2024-09-02 10:56] LABS: Thyroid Stimulating Hormone 1.57 uIU/mL (0.32-4.0)
[2024-09-02 10:59] LABS: Folate 15.8 ng/mL (> or = 4.0); Vitamin B12 761 pg/mL (200-900)
[2024-09-03 17:23] LABS: Ceruloplasmin 23 mg/dL (14-30)
== END 2024-09-02 08:31 | disposition home or self-care (01) ==
LOC: HO.LAB 08:30
PROVIDERS: Internal Medicine; PCP Internal Medicine; Visit Provider Psychiatry & Neurology Neurology
DX: R56.9 Unspecified convulsions (principal)
CPT/HCPCS: 36415; 82390; 82607; 82746; 84443; 86780

== ENCOUNTER 2024-11-12 09:01 | Outpatient (AMB) | payer MEDICARE, MEDICAID, SELFPAY ==
[2024-11-12 09:04] VITALS: BP 90/52; PULSE 72; BMI 28.7
--- NOTE | 2024-11-12 09:04 | A.OFFVIS_ITS ---
Vital Signs 11/12/24 09:04 Height 6 ft Weight 211 lb 10.3 oz BMI 28.7 BP 90/52 L Blood Pressure Location Lt brachial Position Sitting Pulse 72 Pulse Source Monitor Intake Visit Reasons: follow-up with ekg dx afib Manager Of Internal Required: No Monitor Worker: Monitor Worker Present Allergies No Known Allergies [No Known Allergies*] Allergy (Verified 11/12/24 09:09) Medication List - Last Reconciled 11/12/24 by AMAURY SmithC acetaminophen 650 mg PO Q4H PRN aspirin 81 mg PO DAILY atorvastatin 80 mg PO BEDTIME benztropine 0.5 mg PO BID fluoxetine 10 mg PO DAILY lacosamide mg PO lamotrigine 200 mg PO BID levetiracetam 1,000 mg PO BID multivitamin 1 tab PO QAM omeprazole 20 mg PO DAILY@1600 risperidone 2 mg PO .qhs risperidone 1 mg PO .am thioridazine 25 mg PO BEDTIME HPI HPI follow-up with ekg dx afib: Details: Ezequiel is a 58-year-old male with past medical history of hyperlipidemia, CAD, lad stent 12/2013, recurrent chest discomfort with abnormal stress test who had cardiac catheterization 09/2021 showing nonobstructive coronary artery disease, paroxysmal atrial fibrillation who presents for follow-up. Today he reports that he has been noticing some fatigue. He denies any heart palpitations. He has not had any neurological changes. No chest discomfort, shortness of breath, presyncope, syncope, PND, orthopnea or edema. His custodial member is with him and state that he continues to have falls but no recent injury. He believes the patient falls at times and does not tell anyone. In the past he has had falls with facial and head injuries. He has muscle spasms which cause him to fall either forward or backwards, which contribute to him falling. He uses a cane but I am told that does not help this situation. [facility] Medical History Status post left heart catheterization Arterial hypotension Seizure Atrial fibrillation Abnormal nuclear stress test Atypical chest pain CAD (coronary artery disease) Hyperlipidemia Obesity Surgical History Stented coronary artery Hx of cardiac cath Family History Father CVD (cardiovascular disease) Mother CVD (cardiovascular disease) Social History Patient Tobacco Use Status: Never used Tobacco service: No Current occupational status: disabled Review of Systems Const All systems reviewed & are unremarkable except as noted in HPI and below ENT Denies dizziness Card Denies chest pain, Denies chest pain at rest, Denies chest pain with activity, Denies rapid heart rate, Denies pedal edema, Denies edema, Denies leg edema, Denies lightheadedness, Denies palpitations, Denies dyspnea, Denies dyspnea on exertion and Denies orthopnea Resp Denies cough, Denies dyspnea and Denies dyspnea on exertion GI Denies hematochezia and Denies change in stool character Musc Reports abnormal gait (uses cane, falls from muscle spasms), Denies limited range of motion, Denies muscle cramps, Denies muscle weakness, Denies numbness, Denies radiating pain into limb, Denies stiffness and Denies tingling Neuro Reports abnormal gait (uses cane, falls from muscle spasms), Denies dizziness, Denies numbness and Denies tingling Endo Denies palpitations Physical Exam Vital Signs: BMI result Body Mass Index 28.7 Const General: cooperative, healthy appearing, comfortable and no acute distress Orientation/consciousness: patient oriented x3 Neck Neck: Yes normal visual inspection and Yes no JVD Resp Effort & Inspection: normal respiratory effort Auscultation: clear to auscultation bilaterally, no crackles, no rales, no rho nchi and no wheezes Cardio Jugular venous distension: no JVD Rate: regular rate Rhythm: abnormal rhythm Heart sounds: S1 normal heart sound present, S2 normal heart sound present, no murmurs and no rubs Neuro General: patient oriented x3 Extrem General: Yes normal to inspection, No no pedal edema and No calf tenderness Psych Appearance: grossly normal Mental Status: mental status grossly normal Speech and movement: Normal speech and movement present Office Procedures EKG Details: Today, read by me, atrial flutter with variable AV block, cant exclude prior inferior and anterior infarct, rate 72, Qtc 387ms [id number], Complete Results Reviewed Results Reviewed: Echo 06/20/23 Conclusions: - The left ventricular systolic function is normal. The calculated ejection fraction is 62% by biplane method. - No obvious valvular pathology seen on this study. Assessment & Plan Assessment & Plan (1) Paroxysmal atrial fibrillation: Code(s): I48.0 - Paroxysmal atrial fibrillation Category: Medical Plan: History of paroxysmal atrial fibrillation/flutter with no recent documented episodes until this month. EKG done at [facility] on 10/22/2024 shows atrial flutter, rate 79. EKG done today shows atrial flutter, rate 72. He does report some fatigue but no shortness of breath or palpitations. Chads Vasc score 1, with vascular disease, CAD. He was not started on full anticoagulation due to high fall risk and risk of injury. He is on aspirin. Stroke risk reviewed with him in detail. Will hold off on anticoagulation for this reason. Will check Holter monitor assess if a flutter is still paroxysmal and to check rate control. He is currently not on any rate slowing agents. Last echocardiogram was done on 06/20/2023 showing EF 62%, normal valves, left atrium mildly dilated. Cardiology follow-up in 6 months, sooner if needed. (2) CAD (coronary artery disease): Comment: ACS, December 2013. Stable since then on medical therapy Code(s): I25.10 - Atherosclerotic heart disease of [place] coronary artery without angina pectoris Category: Medical Plan: History of CAD with mid circumflex stent 12/2013. Nuclear stress test on 05/26/2021 showing finding suggesting mild ischemia in the right coronary artery territory and a mild fixed basal inferior lateral defect which could be artifact but can not exclude a small nontransmural infarct in the circumflex territory, EF 63% with stress and 56% with rest. He underwent cardiac catheterization on 09/26/2021 showing mild diffuse disease in the LAD, circumflex and RCA, 1st RPL with 50% stenosis. EKG done today is not showing any ischemic findings. Signs and symptoms of angina reviewed. Continue aspirin indefinitely. He had been on metoprolol in the past however it is no longer on his list. His blood pressure is on the low side, initially 90/52 and recheck done by me 100/60. Cont inue high-dose atorvastatin with ideal LDL goal less than 70. Labs done 06/20/2023 showed LDL 74. He is due for updated labs, reminded of this. Benefits of weight loss and increasing physical activity reviewed. (3) Status post left heart catheterization: Comment: 09/26/2021 left main normal, lad mild diffuse disease less than 30%, twin LAD, left circumflex mild diffuse disease less than 30%, stent in the mid circumflex patent, RCA mild diffuse disease, 1st RPL 50% stenosis Code(s): Z98.890 - Other specified postprocedural states Category: Medical Plan: As above (4) Stented coronary artery: Comment: bare metal stent to distal circumflex for his ACS, December 2013 Code(s): Z95.5 - Presence of coronary angioplasty implant and graft Category: Surgical Plan: As above (5) Hyperlipidemia: Code(s): E78.5 - Hyperlipidemia, unspecified Category: Medical Plan: [place] LDL goal less than 70. Continue high-dose atorvastatin. (6) Obesity: Code(s): E66.9 - Obesity, unspecified Category: Medical Plan: Mostly sedentary, ambulates with cane. (7) Atrial flutter: Code(s): I48.92 - Unspecified atrial flutter Category: Medical Plan: Atrial flutter on EKG today Plan Time spent on chart review, documentation, interview and assessment I discussed with the patient the diagnosis of atrial flutter and its implications, including the potential risk for stroke. Given the historical frequency of falls, initiating blood thinners presents a concerning bleeding risk. The patient understands the importance of dietary changes and has agreed to reduce caffeine and sugar intake. Further EKG monitoring and cholesterol testing have been advised to address and manage cardiovascular risks effectiv eugenia. Continued monitoring of falls and muscle spasms was emphasized, and regular checks on blood pressure were discussed. The patient is aware of the signs of stroke and when immediate medical assistance is necessary. Orders: Orders ECG 3 day holter monitor Today I48.92 - Unspecified atrial flutter Magnesium Today I48.0 - Paroxysmal atrial fibrillation Lipid Panel Today I25.10 - Atherosclerotic heart disease of [place] coronary artery without angina pectoris TSH reflex Free T4 Today I48.0 - Paroxysmal atrial fibrillation Comprehensive [place]. Panel Fast Today I48.0 - Paroxysmal atrial fibrillation Complete Blood Count Auto Diff Today I48.0 - Paroxysmal atrial fibrillation Patient Instructions: - Reduce caffeine and sugar intake significantly. - Monitor for signs of a fall and seek supervision if muscle spasms occur. - Maintain hydration to avoid low blood pressure episodes. - Engage in mild physical activity like wall push-ups with safety measures. - Obtained ordered fasting labwork - Holter monitor to assess heart rhythm and rates - Stay alert for symptoms of stroke and seek emergency care if suspected. Patient was informed and verbally consented to the use of an ambient scribe for clinic note documentation during this visit. Coding Level of Care Code Est Pt Level 4 (00299) Complex EM visit Add On G2211 Diagnoses Paroxysmal atrial fibrillation I48.0 CAD (coronary artery disease) I25.10 Status post left heart catheterization Z98.890 Stented coronary artery Z95.5 Hyperlipidemia E78.5 Obesity E66.9 Atrial flutter I48.92 CPT Codes EKG - CPT: 34019-[id number], Complete ([id number]) Time Spent (min) 28
--- OUTSIDE RECORDS SUMMARY | 2024-11-12 09:15 | XMS_ITS ---
Author Organization [facility] Address [address] [place] [address] Care Team Providers Care Handy Man Name Role Phone Eula Ellison Primary Care Provider Cristel Solorzano Unavailable [phone] REASON FOR VISIT sooner appt Encounters Encounter Location Date Provider Diagnosis [address] [place] [address] 07/01/2024 Cristel Johnson Plan Of Treatment Next Appt Details Provider Name:Cristel Johnson , 11/20/2024 10:15:00 AM, [address] [facility], [place], [address], Progress Notes * Ezequiel GONZALEZDOB:1965 (58 yo M)Acc No.[id number]:07/01/2024 Patient:?Ezequiel GONZALEZ :1965???Age:58 Y???Sex:Male [address]:[address] [place] [address], [id number] * true * Date:? Generated for Printi ng/Faxing/eTransmitting on:?11/12/2024 09:14 AM EDT
--- OUTSIDE RECORDS SUMMARY | 2024-11-12 09:15 | XMS_ITS | Data Portability ---
Author Organization [place] - [facility] Address [address] [place] [address] Care Team Providers Care Meter Setter Name Role Phone CA LOMELI Primary Care Provider Assessment Encounter Date Assessment Date Assessment LastModified by Organization Details LastModified Time 09/05/2018 09/05/2018 Overview/History : Pt is a 52yo M with PMH sig for MR, SZ, HTN, UT, and impulsive behavior. Per staff pt reported an injury to his left foot today. Pt has reported conflicting stories to staff regarding the cause of the injury. Pt has been known to inflict self harm in the past to obtain attention from staff and another resident is currently hospitalized and the house wirer helper was anticipating that the pt may attempt something and reports pt told her he did it himself. Pt reported to this provider that it happened this morning but looked to staff to fill in how it happened when they asked him back what happened, pt asked this provider if she could tell him how it happened. Pt also inquired happily upon this providers arrival if this ment he got to go to the hospital now. Exam: Pt is Alert, oriented to self and place. Pt is non-toxic appearing, VSS, HRR, resp reg and unlabored on RA, lungs CTA bilat. DDx considered, but not limited to: Fracture: high suspicion given extent and severity of the bruising to the left great toe and side of foot. Sprain: possible given sx but cannot r/o fx. Hematoma: possible as pt is on daily asa, but cannot r/o fx. Work up/Results: pt requires xray of foot see discussion below Plan/Discussion: Discussed with house wirer helper concern for fx given extent of bruising. Informed retail general manager that mobile xray can be ordered however xray will most likely be performed tomorrow given the evening hour of the visit, unable to offer brick and mortar xray referral as those locations are also closed already d/t the hour. Discussed pro's and con's of waiting util tomorrow to have xray performed. geotechnical department manager opted to have pt go to [facility] for further evaluation tonight. Staff will transport pt. Patients PCP contacted and updated on patient status. Patient's caregivers verbalized understanding of discharge instructions and when to follow up with PCP/911/ED as needed. Patient's caregivers in agreement with current plan and treatment. Time On Scene with Patient: 00:37:14 mario alberto Not available 09/05/2018 19:21:28 10/25/2020 10/25/2020 Time On Scene with Patient: 00:37:14 Not available 10/25/2020 16:12:16 Plan of Treatment Reminders Order Date Submit Date Provider Last Modified By Organization Details Last Modified Time Details Appointments None recorded. Lab None recorded. Referral None recorded. Procedures None recorded. Surgeries None recorded. Imaging None recorded. Medication Orders bacitracin 500 unit/gram topical ointment 2020 021 [facility], [address] [place] [address], [phone], 15:30:11 Patient TargetsNo targets recorded. Patient Instructions Encounter Date Encounter Id Patient Instructions Last Modified By Organization Details Last Modified Time 09/05/2018 [id number] Thank you for yo ur visit with [facility] today. We cannot always find the exact cause of your symptoms during your initial visit. Please follow up with your primary care provider or specialist to be rechecked or seek medical attention if your symptoms do not go away or get worse. If you develop any new or worsening symptoms and need after hours care, please go to nearest ER and/or call 911. If you have additional concerns or develop a change in your condition between 8am-10pm, please call [facility] at [phone] to help navigate your care. Thank you for your visit with [facility] today. You do not appear to have a fracture or dislocation that requires immediate surgical intervention. However, small breaks or ligament tears may not be obvious on initial examination. Given this concern, we may have placed you in a temporary splint. If an xray is indicated, we will help direct you to the best option to obtain your imaging study. We have also given you follow up directions. Please follow up with your primary care physician or specialist as directed. If you develop any new or worsening symptoms and need after hours care, please go to nearest ER and/or call 911. If you have additional concerns or develop a change in your condition between 8am-10pm, please call [facility] at [phone] to help navigate your care. mario alberto Not available 09/05/2018 18:19:10 10/25/2020 [id number] rice therapy education Not available 10/25/2020 16:12:17 you were seen today for evaluation of a left knee abrasion you sustained after falling. There is also minimal swelling and bruising noted to this knee. There is no evidence of fracture. Please refer to RICE therapy instructions for general care. Rest, Ice, (no need for compression) and elevate this leg while symptoms persist. Please take Tylenol per grain picker instructions for pain if needed. Take two Tylenol PRN per previous guidelines ordered by your PCP. For wound care: cleanse 2 x daily with provided wound care solution or soapy water. Pat dry. Apply Bacitracin antibiotic ointment 2 x daily x 7 days. Follow with non-adherent dressing and tape. Monitor for signs of infection, increased swelling, fever, heat to area, redness. If these symptoms develop, please contact PCP/consider ER. Thank you for your visit with [facility] today. You were seen today for treatment of a wound. Please seek immediate medical attention if you develop increased pain, redness, or swelling of your wound. Also, you should be evaluated if the wound becomes warm to the touch, or if there is a cloudy, yellow-brown discharge from the wound. There is always the possibility of a hidden tendon injury or foreign object in the wound. If you have problems moving your arm or leg, or if you see red streaks up the arm or leg, seek immediate medical attention. If you develop any new or worsening symptoms and need after hours care, please go to nearest ER and/or call 911. If you have additional concerns or develop a change in your condition between 8am-10pm, please call [facility] at [phone] to help navigate your care. Not available 10/25/2020 15:29:31 Reason for Referral None Reported. Problems Name Problem SNOMED Code Status Onset Date Resolution Date Notes Provider Name and Address Organization Details Recorded Time Mental retardation Active 2018 ERIC SALMERON NP [address], [place], [address], [place] - [facility] 9 18:16:41 Problem Notes None recorded. Procedures Surgical History Date Name Laterality Status Provider Name and Address Organization Details Recorded Time open heart surgery completed Tricia Gibbons NP [address], [place], [address], [place] [facility] 10/25/2020 15:09:47 Imaging Results None recorded. Procedure Notes None recorded. Medical Equipment None Reported. Allergies No known drug allergies Medications Name Sig Start Date Stop Date Status Note LastModified by Organization Details LastModified Time atorvastati n 80 mg tablet TAKE 1 TABLET BY MOUTH EVERY DAY AT BEDTIME active Not Available Not Available No t Available acetaminoph en 325 mg tablet TAKE 2 TABLETS EVERY FOUR HOURS NEEDED FOR TEMP GREATER THAN 100 OR BODY ACHES active Not Available Not Available No t Available benztropine 0.5 mg tablet TAKE 1 TABLET BY MOUTH TWICE A DAY active Not Available Not Available No t Available levetiracet am 500 mg tablet TAKE 2 TABLETS BY MOUTH TWICE DAILY active Not Available Not Available No t Available bacitracin 500 unit/gram topical ointment Apply 1 applicati on twice a day by topical route as directed for 7 days. 2020 active Not Available Not Available Not Avai lable aspirin 81 mg tablet,prakash yed release TAKE 1 TABLET BY MOUTH EVERY MORNING AT 7AM active Not Available Not Available No t Available thioridazin e 50 mg tablet TAKE 1 TABLET BY MOUTH AT BEDTIME active Not Available Not Available No t Available risperidone 2 mg tablet TAKE 1 TABLET BY MOUTH TWICE A DAY active Not Available Not Available No t Available econazole nitrate 1 % topical cream active Not Available Not Available Not Available fluoxetine 10 mg capsule TAKE 1 CAPSULE BY MOUTH EVERY MORNING active Not Available Not Available No t Available omeprazole 20 mg capsule,del ayed release TAKE 1 CAPSULE BY MOUTH EVERY DAY AT 4PM active Not Available Not Available No t Available metoprolol succinate ER 25 mg tablet,exte nded release 24 hr TAKE 1 TABLET BY MOUTH EVERY DAY active Not Available Not Available No t Available fluoxetine 20 mg capsule active Not Available Not Available Not Available lamotrigine 100 mg tablet TAKE 2 TABLETS (200 MG) BY ORAL ROUTE 2 TIMES PER DAY active Not Available Not Available No t Available Daily-Lb tablet TAKE 1 TABLET BY ORAL ROUTE ONCE A DAY AT 7 00 AM active Not Available Not Available No t Available ciclopirox 0.77 % topical cream APPLY TOPICALLY TO AFFECTED AREA(S) TWICE A DAY NEEDED active Not Available Not Available No t Available atorvastati n 10/25 completed Not Available Not Available Not Available Aspir-81 10/25 completed Not Available Not Available Not Available Tylenol active Not Available Not Avail able Not Available Tab-A-Lb 400 mcg tablet TAKE 1 TABLET BY MOUTH EVERY DAY AT 7 AM active Not Available Not Available No t Available Vitals Date Recorded Heart rate Respiratory rate Oxygen saturation Oxygen saturation in Arterial blood by Pulse oximetry Body temperature Systolic blood pressure Diastolic blood pressure Provider Name and Address Organization Details Last Updated DateTime 1 59 /min 18 /min 96 % 96 % 96.9 [degF] 100 mm[Hg] 60 mm[Hg] Not Available [facility] 1 15:13:45 Date Recorded Heart rate Oxygen saturation Oxygen saturation in Arterial blood by Pulse oximetry Body temperature Respiratory rate Systolic blood pressure Diastolic blood pressure Provider Name and Address Organization Details Last Updated DateTime 9 64 /min 96 % 96 % 98 [degF] 16 /min 116 mm[Hg] 64 mm[Hg] Not Available [facility] 9 17:41:13 Social History Question Answer Notes LastModified by Organizat ion Details LastModified Time Tobacco Smoking Status Former Smoker Tricia Gibbons NP [address] [facility] [place], [address], [place] [facility] 10/25/2020 15:08:16 Do You Have An Advance Directive? Yes Information not available 09/05/2018 What Is Your Code Status? Full Code Information not available 09/05/2018 Drugs Abused None Information not available 09/05/2018 How Many Days In The Past Year Have You Had A Heavy Drinking Consumption (4+ Female, 5+ Male)? 0 Information not available 09/05/2018 Within The Past 12 Months, Has It Happened That The Food You Bought Just Didn't Last And You Didn't Have Money To Get More. Normal Information not available 09/05/2018 Within The Past 12 Months, Have You Worried That Your Food Would Run Out Before You Got Money To Buy More. Yes Information not available 09/05/2018 Fall Risk: Do You Feel Unsteady When Standing Or Walking? No Information not available 09/05/2018 We Know That How And When People Interact With Friends And Family Can Be Very Different From Person To Person. How Often Do You Have The Opportunity To See Or Talk To People That You Care About And Feel Close To? (Ex: Talking To Friends On The Phone Or Visiting Friends Or Family Or Going To Jain Or Club Meetings) 1 Or 2 Times Per Week Information not available 10/25/2020 Excessive Alcohol Or Drug Use No Information not available 10/25/2020 We Know From Many Of Our Patients That Covering All Of Their Costs Can Be Difficult At Times. This Can Cause Stress And Impact Health. In The Past Year, Have You Been Unable To Get Any Of The Following When It Was Really Needed? No Information not available 10/25/2020 What Is Your Housing Situation Today? I Have Housing Information not available 10/25/2020 Would You Like Help Connecting To Resources? None Information not available 10/25/2020 Marital Status Single Informatio n not available 09/05/2018 What Was The Date Of Your Most Recent Tobacco Screening? 09/05/2018 Information not available 01/15/2019 Has Tobacco Cessation Counseling Been Provided? No Information not available 09/05/2018 Sex: Unknown Functional Status None recorded. Mental Status None recorded. Family History Nothing Reported. Medical History Condition Response Diabetes N Coronary Artery Disease Y Cancer N Stroke N Asthma N COPD N Depression N High Cholesterol Y Pulmonary Embolism N Hypertension Y Kidney Disease N Past Encounters Encounter ID Performer Location Encounter Start Date Encounter Closed Date Diagnosis/Indication Diagnosis SNOMED-CT Code Diagnosis ICD10 Code Diagnosis Note [id number] ERIC SALMERON NP [facility] [address] [place] [address] [place] [address] 09/05/2018 17:35:45 09/09/2018 14:23:48 Pain of joint of left foot [id number] M25.572 [id number] Tricia Gibbons NP [facility] [address] [place] [address] 10/25/2020 15:05:49 10/26/2020 13:18:22 Abrasion [id number] T14.8XXA Contusion of knee 024594 06 S80.02XA Overview/H istory: Patient is a 54 year old male with MR who is alert, oriented x 3. Patient presents for evaluation of left kne injury since he sustained a fall from standing position this afternoon. He tripped on his own two feet. Denies hitting head, denies LOC. Review of patient history reveals a left foot injury 09/05/2018 where he was evaluated by for possible fracture. long term staff indicated that patient has tendency to fall/prop ensity for self injury when seeking attention. Exam: Afebrile 96.9, HRR 59, S1, S2. LSCTA bilaterall y, no work of breathing. Trachea midline, no JVD distention . Moist mucous membranes, no lymphadeno sonny. Abdomen SNT, + bowel sounds x r quadrants. Self ambulatory patient, moves all limbs without deficit. Steady gait. Left anterior knee slightly edematous, 2x5cm abrasion noted that is draining serosangui nous fluid and scant amount of blood. There is a 3x3 cm area of bruising to the medial aspect of the knee. Patient is able to flex and extend the knee with no difficulty . No crepitus or evidence of fx on exam. DDx considered , but not limited to: Abrasion+ Contusion+ Fracture considered , no crepitus, ambulating with no deficit Work up/Results : Exam Plan/Discu ssion: RICE therapy. cleanse abrasion 2 x daily with soapy water/woun d cleanser provided, pat dry. Apply Bacitracin liberally to Telfa dressing over wound x 7 days until healed. Tylenol per box instructio ns for comfort. Proper Personal Protective Equipment (PPE), including {{gloves, eye protection , masks, and gowns, shoe covers taylor ves, eye protection and masks* taylor ves, eye protection gloves, eye protection , N95 mask, gown, and shoe covers maggie gical mask with face-shiel d, gloves, gown and shoe covers maggie gical mask with face-shiel d, gloves}} were donned and doffed boom bello and all equipment cleaned using approved technique with germicidal disposable wipes prior to and after care of this patient according to [facility]'s infection prevention protocols. In order to obtain further informatio n and compare any laboratory results/va lues, I have accessed {{old patient records* p atient records on the [facility] r eviewed records with the PCP}}. This informatio n was pertinent in my medical decision making today. Pain in left knee [id number] 6428 75501 M25.562 Pain of cecilio int of left foot [id number] 866766 M25.572 Health Concerns Section Related Observation LastModified by Organization Detai ls LastModified Time None Recorded Concern Status LastModified by Organization Details LastModified Time None Recorded Advance Directives Directive Y: Payers Insurance Date Sequence Insurance Name Policy Number Policy Griggs Covered Member ID Griggs Member ID Guarantor Name 09/05/2018 1 [place] [facility] Ezequiel Winchester [id number] Ezequiel Winchester 09/05/2018 1 [place] B[place] [employer] Ezequiel Winchester [id number] Ezequiel Caseydel 09/05/2018 1 *SELF PAY* Ezequiel Winchester [id number] Ezequiel Winchester 10/26/2020 2 [place] Ezequiel Caseydel [id number] Ezequiel Caseydel 10/26/2020 1 [place] [employer] Ezequiel Caseydel [id number] Ezequiel Winchester Notes Date Note Type Note Provider Name and Address Organization Details Recorded Time 09/05/2018 text/html Pt has mild MR and [facility] at a [facility]. Pt has conflicting stories regarding how his foot was hurt. He told this provider it happened this morning but was unable to state how, then asked this provider if she'd be able to tell him how he hurt his foot. Staff at [facility] state pt has claimed that he fell out of bed yesterday morning and it happened then. Pt is c/o pain to the left and is limping and favoring that leg. Spoke with supplier manager who reports pt has a hx of self harm to gain attention and that one of his fellow residents is currently at the hospital and she was expecting the pt to try to do something to get attention once the other resident was hospitlized. ERIC SALMERON, GIOVANNI [address], [place], [address], [place] [facility] 09/05/2018 19:26:39 10/25/2020 text/html Patient is an alert 54 year old male with history of MR who is known to and newt to this provider. [facility] resides in a [facility]. Patient chief complaint this visit is left knee pain resulting from a fall after tripping on my sneakers. Patient fell from a standing position to the sidewalk. Denies hitting head, denies LOC, denies any other injury. Patient is able to bear weight. Patient medical history significant for UT in 2015, hyperlipidemia, HTN, MR, seizures. Tricia Gibbons, GIOVANNI [address], [place], [address], [place] [facility] 10/25/2020 16:30:48
--- OUTSIDE RECORDS SUMMARY | 2024-11-12 09:15 | XMS_ITS ---
Author [facility] Address [address] [place] [address] Care Team Providers Care Bar Staff Name Role Phone Eula Ellison Primary Care Provider Cristel Solorzano Unavailable [phone] Allergies No Known Allergies REASON FOR VISIT [...] W/U Status Risk Notes Problem Atherosclerosis of [place] artery of both lower extremities, with unspecified presence of clinical manifestation (I70.203) Active confirmed Q7(A), Q8(2B), Q9(1B,2C) Vital Signs Blood pressure systolic 119 mm Hg 08/21/19 25 Blood pressure diastolic 70 mm Hg 025 Height 5ft 8in in 08/21/2024 Weight 211 lbs 08/21/2024 BMI 32.08 kg/m2 08/21/2024 Procedures Procedure Date Ordered Date Performed Result Body Sit e 64994-RVHFMZJ NAIL, 6 OR MORE 08/21/2024 N/A 00489-QFNG SKIN LESIONS, OVER 4 08/21/2024 N/A Encounters Encounter Location Date Provider Diagnosis [facility] [address] [address] 08/21/2024 Cristel Black Atherosclerosis of king island artery of both lower extremities, with unspecified presence of clinical manifestation I70.203 ; Tinea unguium B35.1 ; Pain in right toe(s) M79.674 and Pain in left toe(s) M79.675 Assessments Encounter Date Diagnosis (ICD Code) Assessment Notes Treatment Notes Treatment Clinical Notes Section Notes 08/21/2024 Atherosclerosis of [place] artery of both lower extremities, with unspecified presence of clinical manifestation (ICD-10 - I70.203) Q7(A), Q8(2B), Q9(1B,2C) 08/21/2024 Tinea unguium (ICD-10 - B35.1) 08/21/2024 Pain in right toe(s) (ICD-10 - M79.674) 08/21/2024 Pain in left toe(s) (ICD-10 - M79.675) Plan Of Treatment Pending Test Test Name Order Date 45081-DYSVDGB NAIL, 6 OR MORE 08/21/2024 63069-OGQW SKIN LESIONS, OVER 4 08/21/19 Next Appt Details Follow Up: prn, Reason: Provider Name:Cristel Johnson , 11/20/2024 10:15:00 AM, [address] [facility], [place], [address], Procedure Notes * Category Sub-Category Detail Notes [...] use of a nail nipper and/or dremel-type precision lens grinder apprentice, to a more viable healthy nail plate [...] to maintain effectiveness in symptomatic relief - 66846 Keratoma Treatment Parring or Cutting o f [...] instrumentation by the physician of record - 91228 Progress Notes * Ezequiel GONZALEZDOB:1965 (58 yo M)Acc No.[id number]:08/21/2024 Progress Note Patient:?Ezequiel GONZALEZ Provider:?Cristel Johnson DPM :1965???Age:58 Y???Sex:Male Yong e:08/21/2024 Address:[address] [place], [place] [id number] Pcp:Eula Ellison Subjective: * Chief Complaints: * ???At Risk FootcarePainful N ail(s) aggravated by shoes and causing difficulty standing/walking. * HPI: ???At Risk footcare:?Pt States Last PCP Visit:?Date?07/15/2024 * Medical History:? * Surgical History:?ankle surg glenn 2000stint placed in cortinary artery 01/09/2014 * Hospitalization/Major Diagno stic Procedure:?[facility] irregular heartbeat 09/2021 * Family History:?Mother: dece [...] for office visit today, Pt accompanied by, FORKLIFT PICKER.?ORIENTED:?person, place, and time.?Vascular: ?DP PULSES (B):? 0/4, [...] Assessment: 1.?Tinea unguium - B35.1???2 .?Atherosclerosis of king [place] artery of both lower extremities, with unspecified presence of clinical manifestation - I70.203 (Primary)???Notes :Q7(A), Q8(2B), Q9(1B,2C)???3.?Pain in right toe(s) - M79.674???4.?Pain in left toe(s) - M79.675??? Plan: * Treatment: 2.?Tinea unguium?Procedure: 60069-AYUYYHD NAIL, 6 OR MORE * Procedures:?Debride Nail [...] use of a nail nipper and/or dremel-type precision lens grinder apprentice, to a more viable healthy nail plate [...] to maintain effectiveness in symptomatic relief - 65726.?Keratoma Treatment:?Parring or Cutting of Benign Hyperkeratotic Lesion(s)?, [...] instrumentation by the physician of record - 64062.? * Procedure Codes:?40125 DEBRI DE NAIL, 6 OR MORE, Modifiers: XS 79270 TRIM SKIN LESIONS, OVER 4, Modifiers: Q8 * Preventive Medicine:? ??Screening/Special Tests:?Fall Risk?Screening:?No falls in the past year ?FALLS: Screening for Future Fall Risk?Have you had any falls with injury in the past year??No * Follow Up:?prn * Images: * Sign off status: Completed true * Provider:?Cristel Johnson DPM Date:?2024 Generated for Juwan eagle/Apoorva/Selina on:?11/12/2024 09:14 AM EDT History and Physical Notes * [...] for office visit today, Pt accompanied by, FORKLIFT PICKER ORIENTED: person, place, and t wilfrido Vascular [...]
--- OUTSIDE RECORDS SUMMARY | 2024-11-12 09:15 | XMS_ITS | Clinical Summary ---
Author Organization [facility] Address [address] [place] [address] Phone Care Team Providers Care Interior Design Consultant Name Role Phone Afia Oh NP Primary Care Provider [phone] Allergies No known active allergies Medications risperiDONE (RisperDAL) 4 mg tablet Take 2 mg by mouth 2 (two) times a day. 5 Active omeprazole (PriLOSEC) [address] capsule 5 Active Tab-A-Lb 400 mcg tablet 4 Active levETIRAcetam (KEPPRA) 1,000 mg tablet Take 1 tablet (1,000 mg total) by mouth 2 (two) times a day. 5 Active lamoTRIgine (LaMICtal) 200 mg tablet 5 Active lacosamide (VIMPAT) 50 mg tablet 5 Active atorvastatin (LIPITOR) 80 mg tablet 5 Active aspirin 81 mg chewable tablet Chew 2 tablets (162 mg total) 1 (one) time each day. 5 Active benztropine (COGENTIN) 0.5 mg tablet [...] topically 2 (two) times a day. Active bisacodyL (DULCOLAX) 5 mg EC tablet Take 2 tablets by mouth right before beginning bowel prep. See instructions provided by the office 2 tablet 5 Active polyethylene glycol (Golytely) 236-22.74-6.74 -5.86 gram solution Take 4L by mouth once for one dose. May substitue any PEG. Starting at 6PM the night before your procedure drink 1 8oz glasses at your own pace until you complete half of the gallon. Finish 2nd half of the gallon 5 hours before your procedure. 4000 mL 5 Active Active Problems Problem Noted Date Diagnosed Date Acute non-ST elevation myoca rdial infarction (NSTEMI) ([facility] V24, [facility] V28) 08/27/2024 Atherosclerosis of coronary artery 08/27/2024 Stented coronary artery 08/27/2024 Cognitive impairment 08/27/2024 Seizures ([facility] V24, [facility] V28) 08/27/2024 HLD (hyperlipidemia) 08/27/2024 Encounters Date Type Department Care Team Description 10/22/2024 1:44 PM EDT Anesthesia Event [facility] Endoscopy [address] [place] [phone] Petey Hunt MD Vermes, Rachie, CRNA 10/22/2024 1:05 PM EDT - 10/22/2024 11:59 PM EDT Hospital Encounter [facility] Endoscopy [address] [place] [phone] Roscoe Morales MD Vermes, Rachie, CRNA Spencer, Mark A, MD Colon cancer screening Discharge Disposition: Home or Self Care 08/27/2024 11:00 AM EST Office Visit Gastroenterology - [address] [phone] Lela Hawthorne PA Colon cancer screening (Primary Dx) from Last 3 Months Surgical History Surgery Date Site/Laterality Comments COLONOSCOPY 11/08/2016 5-yr recall CORONARY ANGIOPLASTY WITH STENT PLACEMENT Medical History Medical History Date Comments Seizure ([facility] V24, [facility] V28) Hyperlipidemia Mood disorder ([facility] V24) ME (myocardial infarction) ([facility] V24, [facility] V28) OCD (obsessive compulsive disorder) Family History Medical History Relation Name Comments Colon cancer Neg Hx Social History Tobacco Use Types Packs/Day Years Used Date Smoking Tobacco: Former Cigarettes Smokeless Tobacco: Former Tobacco Cessation:Counseling Given: Not Answered Alcohol Use Standard Drinks/Week Comments Never 0 (1 standard drink = 0.6 oz pur e alcohol) Interpersonal Safety Answer Date Record ed Physical Abuse 10/22/2024 Verbal Abuse 10/22/2024 Sex and Gender Information Value Date Recorded Sex Assigned at Not on file Legal Sex Male 8:54 PM EST Gender Identity Not on file Sexual Orientation Not on file Obstetrics History Last Filed Vital Signs Vital Sign Reading Time Taken Comments Blood Pressure 125/65 10/22/2024 2:21 PM EDT Pulse 75 10/22/2024 2:21 PM EDT Temperature 35.6 ??C (96.1 ??F) 10/22/2024 2:01 PM ED T Respiratory Rate 16 10/22/2024 2:21 PM EDT Oxygen Saturation 99% 10/22/2024 2:21 PM EDT Inhaled Oxygen Concentration - - Weight 96.6 kg (213 lb) 10/22/2024 1:29 PM EDT Height 172.7 cm (5' 8 ) 10/22/2024 1:29 PM EDT Body Mass Index 32.39 10/22/2024 1:29 PM EDT Plan of Treatment Health Maintenance Due Date Last Done Comments Pneumococcal Vaccine: 50+ Years (2 of 2 - PCV) 01/09/2015 01/09/2014 Cholesterol Screening (Lipid Panel) 05/26/2022 Depression Screening 05/26/2022 HIV Screening 05/26/2022 Hepatitis C Screening 05/26/2022 Medicare Annual Wellness Visit 05/26/2022 Social Influencers of Health Screening 05/26/2022 COVID-19 Vaccine ( season) 2024 04/25/2023, 04/13/2022, 10/20/2021, Additional history exists Hypertension/CHF/CAD Annual BMP Blood Test 08/26/2024 Zoster Vaccines (2 of 2) 09/24/2024 07/30/2024 DTaP,Tdap,and Td Vaccines (3 - Td or Tdap) 01/13/2033 01/13/2023, 02/13/2021 Colorectal Cancer Screening: Colonoscopy 10/22/2034 10/22/2024, 11/08/2016 RSV Immunization Adult Patients (1 - 1-dose 75+ series) 12/28/2038 Pneumococcal Vaccine: Pediatrics (0 to 5 Years) [...] age to complete this topic Meningococcal B Vaccine Aged Out No l onger eligible based on patient's age to complete this topic RSV Immunization Patients Under 20 months Aged Out No longer eligible based on patient's age to complete this topic Varicella Vaccines Aged Out No longer eligible based on patient's age to complete this topic Procedures Procedure Name Priority Date/Time Associated Diagnosis Comments ECG 12-LEAD Routine 10/22/2024 2:22 PM EDT COLONOSCOPY Routine 10/22/2024 2:00 PM EDT Colon cancer screening from Last 3 Months Results * EKG 12 lead (10/22/2024 2:22 PM EDT) Ventricular Rate ECG 79 BPM GEMUSE Atrial Rate 241 BPM GEMUSE QRS Duration 90 ms GEMUSE Q-T Interval 382 ms GEMUSE QTc 438 ms GEMUSE R [place] 1 degrees GEMUSE T [place] 17 degrees GEMUSE ECG Interpretation Atrial fibrillation Inferior infarct , age undetermined Abnormal ECG When compared with ECG of 13-FEB-2021 13:24, Atrial fibrillation has replaced Sinus rhythm Confirmed by ZAFAR LYLES ([id number]) on 10/22/2024 6:20:25 PM GEMUSE 10/22/2024 2:22 PM EDT 10/22/2024 6:20 PM EDT us Petey Hunt MD ECG ORDERABLES Final Result GEMUSE * COLONOSCOPY Anesthesia - MAC; [facility] ENDOSCOPY (10/22/2024 2:00 PM EDT) Anatomical Region Laterality Modality Other 10/22/2024 1:30 PM EDT Impressions 10/22/2024 2:00 PM EDT - Preparation of the colon was fair. ? - Stool in the entire examined colon. ? - The examination was otherwise normal on direct and ? retroflexion views. ? - No specimens collected. Recommendation: ?- Repeat colonoscopy in 5 years for screening purposes. Narrative 10/22/2024 2:00 PM EDT [facility] GI Patient Name: Ezequiel Winchester Procedure Date: 10/22/2024 1:30 PM Date of : 1965 Age: 58 Room: ROOM 14 Gender: Male Note Status: Finalized Attending MD: Roscoe Morales MD, Procedure Date No Time: 10/22/2024 Procedure: ? Colonoscopy Indications: ? Screening for colorectal malignant neoplasm Providers: ? Roscoe Morales MD Referring MD: ?Roscoe Morales MD Medicines: ? Propofol per Anesthesia Complications: ? No immediate complications. Estimated Blood Loss: ? Estimated blood loss: none. Procedure: ? Pre-Anesthesia Assessment: ? - ASA Grade Assessment: III - A patient with severe ? systemic disease. ? After I obtained informed consent, the scope was ? passed under direct vision. Throughout the procedure, ? the patient's blood pressure, pulse, and oxygen ? saturations were monitored continuously.The ? Colonoscope was introduced through the anus and ? advanced to the cecum, identified by appendiceal ? orifice and ileocecal valve. The colonoscopy was ? performed without difficulty. The patient tolerated ? the procedure well. The quality of the bowel ? preparation was fair. Findings: ?The perianal and digital rectal examinations were ? normal. ? A moderate amount of semi-liquid stool was found in ? the entire colon, interfering with visualization. ? Lavage of the area was performed, resulting in ? clearance with fair visualization. ? The exam was otherwise without abnormality on direct ? and retroflexion views. Procedure Code(s): ? --- Professional --- ? G0121, Colorectal cancer screening; colonoscopy on ? individual not meeting criteria for high risk Diagnosis Code(s): ? --- Professional --- ? Z12.11, Encounter for screening for malignant neoplasm ? of colon CPT copyright 2020 [employer]. All rights reserved. The codes documented in this report are preliminary and upon director strategic account management review may be revised to meet current compliance requirements. Roscoe Morales MD 10/22/2024 1:59:40 PM This report has been signed electronically.Roscoe Morales MD Number of Addenda: 0 Note Initiated On: 10/22/2024 1:30 PM Scope In: Scope Out: ? Endoscopy Department at [facility] - [address] [place] [address], ? [place] [address] Procedure Note Roscoe Morales MD - 10/22/2024 [facility] GI Patient Name: Ezequiel Winchester Procedure Date: 10/22/2024 1:30 PM Date of : 1965 Age: 58 Room: ROOM 14 Gender: Male Note Status: Finalized Attending MD: Roscoe Morales MD, Procedure Date No Time: 10/22/2024 Procedure: Colonoscopy Indications: Screening for colorectal malignant neoplasm Providers: Roscoe Morales MD Referring MD: Roscoe Morales MD Medicines: Propofol per Anesthesia Complications: No immediate complications. Estimated Blood Loss: Estimated blood loss: none. Procedure: Pre-Anesthesia Assessment: - ASA Grade Assessment: III - A patient with severe systemic disease. After I obtained informed consent, the scope was passed under direct vision. Throughout theprocedure, the patient's blood pressure, pulse, and oxygen saturations were monitored continuously.The Colonoscope was introduced through the anus and advanced to the cecum, identified by appendiceal orifice and ileocecal valve. The colonoscopy was performed without difficulty. The patient tolerated the procedure well. The quality of the bowel preparation was fair. Findings: The perianal and digital rectal examinations were normal. A moderate amount of semi-liquid stool was found in the entire colon, interfering with visualization. Lavage of the area was performed, resulting in clearance with fair visualization. The exam was otherwise without abnormality ondirect and retroflexion views. Procedure Code(s): --- Professional --- G0121, Colorectal cancer screening; colonoscopy on individual not meeting criteria for high risk Diagnosis Code(s): --- Professional --- Z12.11, Encounter for screening for malignantneoplasm of colon CPT copyright 2020 [employer]. All rights reserved. The codes documented in this report are preliminary and upon director strategic account management reviewmay be revised to meet current compliance requirements. Roscoe Morales MD 10/22/2024 1:59:40 PM This report has been signed electronically.Roscoe Morales MD Number of Addenda: 0 Note Initiated On: 10/22/2024 1:30 PM Scope In: Scope Out: Endoscopy Department at [facility] - [address] [place] [phone] IMPRESSION: - Preparation of the colon was fair. - Stool in the entire examined colon. - The examination was otherwise normal on directand retroflexion views. - No specimens collected. Recommendation: - Repeat colonoscopy in 5 years for screeningpurposes. us Roscoe Morales MD GI~PROCEDURE ORDERABLES Fin al Result from Last 3 Months Insurance MEDICARE MEDICAID - [place] Care Teams Interior Design Consultant Relationship Specialty Start Date End Date Afia Oh NP [address] [place] [address] [place] [phone] PCP - General Family Medicine 07/27/24
--- OUTSIDE RECORDS SUMMARY | 2024-11-12 09:15 | XMS_ITS ---
Author Organization [facility] Address [address] [place] [address] Care Team Providers Care Nonprofit Director Name Role Phone Eula Ellison Primary Care Provider Cristel Solorzano [phone] Encounters Encounter Location Date Provider Diagnosis [address] [address] 09/01/2024 Cristel Johnson Plan Of Treatment Next Appt Details Provider Name:Cristel Johnson , 11/20/2024 10:15:00 AM, [address] [place] [address], [phone], Progress Notes * Ezequiel GONZALEZDOB:1965 (58 yo M)Acc No.[id number]:09/01/2024 Progress Note Patient:?Ezequiel GONZALEZ Provider:?Cristel Johnson DPM :1965???Age:58 Y???Sex:Male Yong e:09/01/2024 Address:[address] [place], [place] [phone] Pcp:Eula Ellison Subjective: * Chief Complaints: * ??? * Medical History:? Objective: * Vitals:? Assessment: Plan: * Treatment: * Images: * The named appointment provid er may or may not be the originator of this progress note, and it is not deemed complete until electronically signed by the appointment provider. Sign off status: Pending * Provider:?Cristel Johnson DPM Date:?2024 Generated for Printi ng/Faxing/eTransmitting on:?11/12/2024 09:14 AM EDT
--- OUTSIDE RECORDS SUMMARY | 2024-11-12 09:15 | XMS_ITS | Patient Health Record ---
Author Organization [facility] Address [address] [place] [address] Care Team Providers Care Yeast Washer Name Role Phone Eula Ellison Primary Care Provider Cristel Solorzano Unavailable [phone] Allergies No Known Allergies Reason For Referral [...] primary osteoarthritis of the ankle and/or foot (978756437) Primary osteoarthritis, left ankle and foot (M19.072) Active confirmed Problem Non-pressure ulcer lower limb (688973000) Non-pressure chronic ulcer of other part of left foot limited to breakdown of skin (L97.521) Active confirmed Problem 354492845602007 Hallux valgus (acquired), left foot (M20.12) Active confirmed Problem 185369239 Venous insufficiency of both lower extremities (I87.2) Active confirmed Problem Bilateral atherosclerosis of arteries of lower limbs (disorder) (5137173150713504 7) Atherosclerosis of mohegan artery of both lower extremities, with unspecified presence of clinical manifestation (I70.203) Active confirmed Q7(A), Q8(2B), Q9(1B,2C) Problem Ulcer of toe of right foot (disorder) (8931168065739938 1) Skin ulcer of toe of right foot, limited to breakdown of skin (L97.511) Active confirmed Response to treatment Problem Ulcer of toe of left foot (disorder) (0142667448208472 2) Skin ulcer of toe of left foot, limited to breakdown of skin (L97.521) Active confirmed Response to treatment Nonapplicable Vital Signs Blood pressure diastolic 70 mm Hg 08/21/2024 Height 5ft 8in in 08/21/2024 Blood pressure systolic 119 mm Hg 08/21/2024 Weight 211 lbs 08/21/2024 BMI 32.08 kg/m2 08/21/2024 Procedures Procedure Date Ordered Date Performed Result Body Sit e 76665-AWHXNXM NAIL, 6 OR MORE 12/11/2023 N/A 45950-DIAYDQN NAIL, 6 OR MORE 05/05/2024 N/A 46443- Debride <25 sq cm 05/05/2024 N/A 03708-Qifq. Subungual Hematoma 05/05/2024 N/A 32347-DDOLOZG NAIL, 6 OR MORE 08/21/2024 N/A 98838-FSRC SKIN LESIONS, OVER 4 08/21/2024 N/A Encounters Encounter Location Date Provider Diagnosis [address] [address] 12/11/2023 Cristel Black Tinea unguium B35.1 ; Pain in right toe(s) M79.674 and Pain in left toe(s) M79.[address] [address] 05/05/2024 Cristel Black Tinea unguium B35.1 ; Pain in right toe(s) M79.674 ; Pain in left toe(s) M79.675 ; Skin ulcer of toe of left foot, limited to breakdown of skin L97.521 and Subungual hematoma of right foot, initial encounter S90.221A [address] [address] 08/21/2024 Cristel Black Atherosclerosis of mohegan artery of both lower extremities, with unspecified presence of clinical manifestation I70.203 ; Tinea unguium B35.1 ; Pain in right toe(s) M79.674 and Pain in left toe(s) M79.[address] [address] 07/01/2024 Cristel Black Assessments Encounter Date Diagnosis (ICD Code) Assessment Notes Treatment Notes Treatment Clinical Notes Section Notes 12/11/2023 Tinea unguium (ICD-10 - B35.1) 12/11/2023 Pain in right toe(s) (ICD-10 - M79.674) 05/05/2024 Tinea unguium (ICD-10 - B35.1) 08/21/2024 Tinea unguium (ICD-10 - B35.1) 08/21/2024 Atherosclerosis of mohegan artery of both lower extremities, with unspecified [...] X ray : Foot, left 3V 10/07/2013 25476-NMRFJRT NAIL, 6 OR MORE 11/11/2013 91253-YYEETMZ NAIL, 6 OR MORE 02/10/2014 93424-VMGMTVK NAIL, 6 OR MORE 03/10/2014 24972-JOJXADJ NAIL, 6 OR MORE 06/09/2014 21165-ZKNROUI NAIL, 6 OR MORE 11/04/2017 37568-VIKBIFI NAIL, 6 OR MORE 02/03/2018 54404-WCTYGGT NAIL, 6 OR MORE 05/12/2018 42397-KLISSII NAIL, 6 OR MORE 08/14/2018 84711-FUUEZOI NAIL, 6 OR MORE 11/13/2018 34415-WBNFADZ NAIL, 6 OR MORE 02/26/2019 52009-FFFTPOQ NAIL, 6 OR MORE 06/04/2019 18286-DYYNCVC NAIL, 6 OR MORE 01/01/2013 76710-RRDZJYK NAIL, 6 OR MORE 04/02/2013 39600-THVYZCX NAIL, 6 OR MORE 08/17/2013 52213-PARCPSJ NAIL, 6 OR MORE 05/14/2011 38438-GNOQMES NAIL, 6 OR MORE 08/20/2011 52987-JOSLCCN NAIL, 6 OR MORE 02/14/2012 49748-XRMZHKF NAIL, 6 OR MORE 05/19/2012 67403-PNVOBJR NAIL, 6 OR MORE 09/10/2012 86472-GFIAYUQ NAIL, 6 OR MORE 10/13/2012 52484-JNHESYE NAIL, 6 OR MORE 03/26/2016 41898-HJEHQYZ NAIL, 6 OR MORE 07/02/2016 64372-UKUQBPM NAIL, 6 OR MORE 10/01/2016 93549-WUYXLNM NAIL, 6 OR MORE 01/28/2017 50317-LWGGCEU NAIL, 6 OR MORE 05/03/2017 70040-IHOPPNF NAIL, 6 OR MORE 08/05/2017 84381-QXEBMMC NAIL, 6 OR MORE 09/08/2014 78940-IZZAJJF NAIL, 6 OR MORE 09/01/2019 27490-YDMEGGR NAIL, 6 OR MORE 12/23/2019 35212-IEQSIDM NAIL, 6 OR MORE 03/23/2020 14350-HJNCMAW NAIL, 6 OR MORE 09/14/2020 95125-HMCYZBJ NAIL, 6 OR MORE 10/27/2021 62077-RRVACIF NAIL, 6 OR MORE 01/19/2022 79621-FNYWGOV NAIL, 6 OR MORE 04/13/2022 00527-NCDQEVK NAIL, 6 OR MORE 07/20/2022 33501-QPYTOHC NAIL, 6 OR MORE 09/28/2022 19870-NZSSMWI NAIL, 6 OR MORE 12/07/2022 78929-NLWNHXP NAIL, 6 OR MORE 03/13/2023 97554-XHDWFPN NAIL, 6 OR MORE 08/28/2023 06572-ZYPIOOU NAIL, 6 OR MORE 12/11/2023 19292-JSOJKCT NAIL, 6 OR MORE 05/05/2024 36123-EJDHKTT NAIL, 6 OR MORE 08/21/2024 05767-Ndxpioto Plate 08/28/2023 11787-Yqeqzlka Plate 12/07/2022 17628-Ltwajcdr Plate 09/28/2022 25411-Hvcmwnqv Plate 02/14/2012 70284-Rqbpuvjh Plate 10/27/2021 54822-Weuwetmc Plate 03/23/2020 28329-Ivtodatr Plate 09/08/2014 95805-Byxnyovm Plate 05/14/2011 15385-Feclbtzb Plate 08/17/2013 84119-Tspqbfmw Plate 04/02/2013 93297-Gzcqrtly Plate 01/01/2013 93742-Vrlkykoq Plate 06/09/2014 63287-Rvjlaqgv Plate 03/10/2014 88372-Bjkngxvp Plate 02/10/2014 28975-Dkxkgdtk Plate Each Additional 39366-Dlnyctsw Plate Each Additional 04/2013 85156-Eosnljwi Plate Each Additional 03/2013 18699-Wrkdqkqq Plate Each Additional 81833-Chcojbxi Plate Each Additional 16200-Jetymmgv Plate Each Additional 11/2021 57823- Debride <25 sq cm 08/05/2017 83121- Debride <25 sq cm 05/05/2024 29551- Debride <25 sq cm 08/20/2011 87570- Debride <25 sq cm 02/14/2012 50211- Debride <25 sq cm 09/01/2019 96521-BIJJ SKIN LESIONS, OVER 4 08/21/19 61410-Codx. Subungual Hematoma 4 Next Appt Details Provider Name:Cristel Johnson , 11/20/2024 10:15:00 AM, [address] [facility], [place], [address], Insurance Providers Payer Name Payer Address Payer Phone Subscriber Number Group Number Insured Name Patient Relationship to Insured Coverage Start Date Coverage End Date Medicare National Govt [facility] [address] [facility] [address] [id number] Ezequiel Winchester Self - patient is the insured Medical (General) History Medical History History ICD Code psychiatric disorder nerve disease epilepsy Surgical History Surgery Date(Month/Year) ankle surgery 1999 stint placed in cortinary artery 01/10/20 14 Hospitalization History Reason Date(Month/Year) [facility] irregular heartbeat 09/2021
== END 2024-11-12 09:48 | disposition home or self-care (01) ==
LOC: HO.HCS 09:02
PROVIDERS: PCP Internal Medicine; Visit Provider Nurse Practitioner Family
DX: I48.0 Paroxysmal atrial fibrillation (principal); I25.10 Atherosclerotic heart disease of native coronary artery without angina pectoris; Z98.890 Other specified postprocedural states; Z95.5 Presence of coronary angioplasty implant and graft; E78.5 Hyperlipidemia, unspecified; E66.9 Obesity, unspecified; I48.92 Unspecified atrial flutter
CPT/HCPCS: 93010; 99214; G2211

== ENCOUNTER → 2024-11-12 09:01 | Outpatient (BNVA) | payer MEDICARE, MEDICAID, SELFPAY | PROVIDERS: PCP Internal Medicine; Visit Provider Nurse Practitioner Family | DX: I48.0 Paroxysmal atrial fibrillation (principal); I25.10 Atherosclerotic heart disease of native coronary artery without angina pectoris; I48.92 Unspecified atrial flutter; E78.5 Hyperlipidemia, unspecified; E66.9 Obesity, unspecified; Z95.5 Presence of coronary angioplasty implant and graft; Z98.890 Other specified postprocedural states; Z68.28 Body mass index [BMI] 28.0-28.9, adult; R94.31 Abnormal electrocardiogram [ECG] [EKG] | CPT/HCPCS: 93005; 99212 ==

== ENCOUNTER → 2024-11-24 10:15 | Outpatient (REF) | payer MEDICARE, MEDICAID, SELFPAY ==
--- OUTSIDE RECORDS SUMMARY | 2024-11-24 11:47 | XMS_ITS ---
Author Organization [facility] Address [address] [place] [address] Care Team Providers Care Latin Teacher Name Role Phone Eula Ellison Primary Care Provider Cristel Solorzano [phone] Encounters Encounter Location Date Provider Diagnosis [address] [address] 09/01/2024 Cristel Johnson Plan Of Treatment Next Appt Details Provider Name:Cristel Johnson , 02/17/2025 01:30:00 PM, [address] [place] [address], [phone], Progress Notes * Ezequiel GONZALEZDOB:1965 (58 yo M)Acc No.[id number]:09/01/2024 Progress Note Patient:?Ezequiel GONZALEZ Provider:?Cristel Johnson DPM :1965???Age:58 Y???Sex:Male Yong e:09/01/2024 Address:[address] [place], [place] [phone] Pcp:Eula Ellison Subjective: * Chief Complaints: * ??? * Medical History:? Objective: * Vitals:? Assessment: Plan: * Treatment: * Images: * The named appointment provid er may or may not be the originator of this progress note, and it is not deemed complete until electronically signed by the appointment provider. Sign off status: Pending * Provider:?Cristel Johnson DPM Date:?2024 Generated for Printi ng/Faxing/eTransmitting on:?11/24/2024 11:46 AM EDT
== END ==
LOC: HO.CARD 10:15
PROVIDERS: PCP Internal Medicine; Visit Provider Nurse Practitioner Family
DX: I48.92 Unspecified atrial flutter (principal)
CPT/HCPCS: 93242

== ENCOUNTER → 2024-11-24 10:18 | Outpatient (BNV) | payer MEDICARE, MEDICAID, SELFPAY | PROVIDERS: PCP Internal Medicine; Visit Provider Internal Medicine Cardiovascular Disease | DX: I48.92 Unspecified atrial flutter (principal) | CPT/HCPCS: 93244 ==